=== PATIENT | female | born 1945 | race Caucasian/White ===

== ENCOUNTER 2018-03-30 14:00 | Emergency (ER) | payer OTHER ==
[~2018-03-30] VITALS: Ht 162.6 cm; Wt 79.8 kg
[~2018-03-30 14:00] MED LIST: ALLEGRA ALLERGY60 MG PO; ALLO300 PO; BIOTIN2500 MCG PO; BUME2 PO; CALCAVITD PO; CEPH250A PO; CHOL10002 PO; CYCL10 PO; DOCSEN PO; FURO40 PO; GABA100 PO; HYDACE5 PO; HYDCOR1TC TOP; Inderal40 MG; K-Dur 20 meq T20 MEQ PO; LEVO750 PO; LEVSOD75 PO; MAGOXI400 PO; META800 PO; METO2.5 PO; NYST100TC TOP; Norco 5-325 Ta1 EACH PO; Norco 7.5-3251 EACH PO; OMEP20ER PO; OXYACE7.5T PO; POTCHL10ER PO; POTCHL20ER PO; POTPHO PO; PRAM.125 PO; PRIM50 PO; SIMV10 PO; SPIR50 PO; Simvastatin20 MG PO; Spironolactone50 MG PO; TRAM50 PO; Valium5 MG PO; WARF5 PO; XGEVA120 MG/1.7 SQ
[2018-03-30] MEDS ORDERED: ELIQUIS5 MG PO (15:49)
== END 2018-03-30 15:54 | disposition home or self-care (01) ==
LOC: ER 14:00
DX: I82.431 Acute embolism and thrombosis of right popliteal vein (principal); E03.9 Hypothyroidism, unspecified; E78.00 Pure hypercholesterolemia, unspecified; F17.200 Nicotine dependence, unspecified, uncomplicated; Z79.899 Other long term (current) drug therapy
CPT/HCPCS: 93971; 99284

== ENCOUNTER → 2018-10-01 | Outpatient (CLI) | payer OTHER ==
[~2018-10-01] MED LIST changes: +ELIQUIS5 MG PO
== END | disposition home or self-care (01) ==
LOC: LAB EV 19:05 → LAB SHORT 19:05
DX: N39.0 Urinary tract infection, site not specified (principal)
CPT/HCPCS: 87077; 87086; 87186

== ENCOUNTER 2019-02-04 17:32 | Inpatient (IN) | payer OTHER ==
[~2019-02-04] VITALS: Ht 162.6 cm; Wt 89.2 kg
[~2019-02-04 17:32] MED LIST changes: -BIOTIN2500 MCG PO; -BUME2 PO; -CHOL10002 PO; -DOCSEN PO; -NYST100TC TOP; -OMEP20ER PO; -PRIM50 PO; -SPIR50 PO
[2019-02-04 18:14] LABS: BASOPHILS ABSOLUTE AUTO 0.07 K/mm3 (0.00-0.23); BASOPHILS PERCENT AUTO 1 % (0-2); EOSINOPHILS ABSOLUTE AUTO 0.01 K/mm3 (0.00-0.68); EOSINOPHILS PERCENT AUTO 0 % (0-6); Hematocrit 36.3 % (33.0-51.0); IMMATURE GRAN ABSOLUTE AUTO 0.01 K/mm3 (0.00-0.10); IMMATURE GRAN PERCENT AUTO 0 % (0-1); LYMPHOCYTES ABSOLUTE AUTO 1.06 K/mm3 (0.84-5.20); LYMPHOCYTES PERCENT AUTO 18 % (21-46); MONOCYTES ABSOLUTE AUTO 0.75 K/mm3 (0.16-1.47); MONOCYTES PERCENT AUTO 13 % (4-13); Mean Corpuscular HGB 27.7 pg (26.0-34.0); Mean Corpuscular HGB Conc 30.3 g/dL (31.5-36.5); Mean Corpuscular Volume 91 fL (80-100); Mean Platelet Volume 9.4 fL (9.1-12.4); NEUTROPHILS ABSOLUTE AUTO 4.09 K/mm3 (1.96-9.15); NEUTROPHILS PERCENT AUTO 68 % (41-73); Platelet Count 231 K/mm3 (150-400); RDW Coefficient Variation 17.1 % (11.7-14.2); RDW Standard Deviation 57.4 fL (35.1-46.3); Red Blood Cell Count 3.97 M/mm3 (3.80-5.20); White Blood Cell Count 5.99 K/mm3 (4.00-11.30)
[2019-02-04 18:37] LABS: Albumin, Blood 2.7 g/dL (3.4-5.0); Albumin/Globulin Ratio 0.7 (0.8-1.8); Bilirubin, Total 0.5 mg/dL (0.1-1.0); Bun/Creatinine Ratio 24.1 (12.0-20.0); Calcium, Blood 9.3 mg/dL (8.5-10.1); Creatinine, Blood 1.16 mg/dL (0.40-1.00); Globulin, Blood 3.7 g/dL (2.2-4.0); Potassium, Blood 4.6 mmol/L (3.5-5.5); Total Protein, Blood 6.4 g/dL (6.4-8.2); Troponin I 0.053 ng/mL (0.000-0.040)
[2019-02-04] MEDS ORDERED: Alendronate Sod10 MG PO (20:02)
[2019-02-04] MEDS ORDERED: ALLEGRA ALLERGY60 MG PO (20:02)
[2019-02-04] MEDS ORDERED: ALLO300 PO (20:03)
[2019-02-04] MEDS ORDERED: BUME2 PO (20:04)
[2019-02-04] MEDS ORDERED: BIOTIN2500 MCG PO (20:04)
[2019-02-04] MEDS ORDERED: GABA100 PO ×2 (20:05→20:06)
[2019-02-04] MEDS ORDERED: Docusate Sodiu1 EACH PO (20:09)
[2019-02-04] MEDS ORDERED: LEVSOD75 PO (20:10)
[2019-02-04] MEDS ORDERED: OMEPRAZOLE MAGN20 MG PO (20:12)
[2019-02-04] MEDS ORDERED: Nystatin15 GM TOP (20:12)
[2019-02-04] MEDS ORDERED: PRIM50 PO ×2 (20:13)
[2019-02-04] MEDS ORDERED: Zocor20 MG PO (20:15)
[2019-02-04] MEDS ORDERED: SPIR50 PO (20:15)
[2019-02-04] MEDS ORDERED: CHOL10002 PO (20:16)
[2019-02-04] MEDS ORDERED: LEG CRAMP RELIEF PO (20:21)
[2019-02-04] MEDS ORDERED: HYDROCORTISONE TOP (20:23)
[2019-02-05 06:18] LABS: Albumin, Blood 2.6 g/dL (3.4-5.0); Albumin/Globulin Ratio 0.8 (0.8-1.8); Bilirubin, Total 0.4 mg/dL (0.1-1.0); Bun/Creatinine Ratio 23.1 (12.0-20.0); Calcium, Blood 8.9 mg/dL (8.5-10.1); Creatinine, Blood 1.17 mg/dL (0.40-1.00); Globulin, Blood 3.4 g/dL (2.2-4.0); Potassium, Blood 4.1 mmol/L (3.5-5.5)
--- NOTE | 2019-02-05 10:48 | NUR ---
Echocardiogram completed.
--- NOTE | 2019-02-05 18:54 | NUR ---
pt gave nursing secretary consent on 02/05/19 to care for her on 02/06/19 from [id number]
--- NOTE | 2019-02-05 19:59 | NUR ---
ADMIT NOTE RECEIVED REPORT FROM ALPHONSO MCHUGH RN IN ED. PT TO ROOM AT 1350 VIA 3LM. PT ORIENTED TO ROOM AND CALL LIGHT SYSTEM. PT EDUCATED ON FALL RISK AND CALLING FOR ASSISTANCE. PT REPORTS FEELING SOB YESTERDAY. PT A&OX4. CALM AND COOPERATIVE WITH CARE. PT RESTING IN BED, 1 PERSON ASSIST TO BSC. SOB ON EXERTION, 4L O2 VIA NC, >90%. PT ON RA AT BASELINE. PT DENIES PAIN AND N/V. PT RECEIVING IV LASIX. VSS. NO OTHER ACUTE CHANGES NOTED DURING SHIFT. REPORT GIVEN TO ONCOMING RN.
--- NOTE | 2019-02-06 02:26 | NUR ---
AFIB WHILE THIS RN WAS AT LUNCH, PT CONVERTED FROM NSR IN THE 60'S TO AFIB RATE BETWEEN 115-120 AT 0147. PT HAS REMAINED IN AFIB, SHE IS ASYMPTOMATIC. RATE NOT ABOVE 120. RESTING IN BED. DR. EGAN CALLED AND NOTIFIED. METOPROLOL ORDERED FOR A RATE GREATER THAN 130. NO ADDITIONAL ORDERS. ANY OTHER INTERVENTIONS NEEDED TO BE ADDRESSED BY DAYSHIFT ATTENDING PER HIS DISCUSSION WITH ME. WILL NOTIFY DAYSHIFT FOR FOLLOW UP. MONITORING.
--- NOTE | 2019-02-06 04:13 | NUR ---
SHIFT SUMMARY UNEVENTFUL NIGHT, UNTIL ABOUT 0200 WHEN PT CONVERTED FROM NSR TO AFIB, RATE BETWEEN 115-120. DR. EGAN WAS CALLED AND NOTIFIED. METEPROLOL ORDERED FOR A HEART RATE GREATER THAN 130. NO ADDITIONAL ORDERS. SEE PRIOR NURSING NOTE. PT HAS REMAINED ASYMPTOMATIC. PT REMAINS IN AFIB AT THIS TIME 0415 RATE 115-120, PER LOGISTICAL ENGINEER. SHE HAS NOT GONE PAST 130. PT HAS DENIED PAIN T/O SHIFT. SHE HAS GOTTEN UP TO THE BATHROOM WITH MIMIMAL ASSISTANCE USING THE FWW. A/OX4. NO N/V. SKIN WARM AND DRY. FAMILY AT BEDSIDE AT THE BEGINNING OF SHIFT AND WERE UPDATED ON CURRENT POC. PT DAUGHTER WOULD LIKE TO CONTACTED TOMORROW IF SHE DOES DC HOME. NO OTHER CHANGES TO REPORT. WILL CONTINUE TO MONITOR AND REPORT TO ONCOMING RN.
[2019-02-06 05:35] LABS: BASOPHILS ABSOLUTE AUTO 0.04 K/mm3 (0.00-0.23); BASOPHILS PERCENT AUTO 1 % (0-2); EOSINOPHILS ABSOLUTE AUTO 0.13 K/mm3 (0.00-0.68); EOSINOPHILS PERCENT AUTO 3 % (0-6); Hematocrit 32.2 % (33.0-51.0); Hemoglobin 9.9 g/dL (11.5-16.0); IMMATURE GRAN ABSOLUTE AUTO 0.03 K/mm3 (0.00-0.10); IMMATURE GRAN PERCENT AUTO 1 % (0-1); LYMPHOCYTES PERCENT AUTO 25 % (21-46); MONOCYTES ABSOLUTE AUTO 0.75 K/mm3 (0.16-1.47); MONOCYTES PERCENT AUTO 14 % (4-13); Mean Corpuscular HGB 27.2 pg (26.0-34.0); Mean Corpuscular HGB Conc 30.7 g/dL (31.5-36.5); Mean Corpuscular Volume 89 fL (80-100); Mean Platelet Volume 10.1 fL (9.1-12.4); NEUTROPHILS ABSOLUTE AUTO 3.01 K/mm3 (1.96-9.15); NEUTROPHILS PERCENT AUTO 57 % (41-73); Platelet Count 195 K/mm3 (150-400); RDW Standard Deviation 54.9 fL (35.1-46.3); Red Blood Cell Count 3.64 M/mm3 (3.80-5.20); White Blood Cell Count 5.26 K/mm3 (4.00-11.30)
[2019-02-06 05:55] LABS: Albumin, Blood 2.4 g/dL (3.4-5.0); Anion Gap 6 mmol/L (6-16); Blood Urea Nitrogen 27 mg/dL (8-24); Bun/Creatinine Ratio 27.1 (12.0-20.0); CO2, Blood 34 mmol/L (21-32); Calcium, Blood 7.9 mg/dL (8.5-10.1); Chloride, Blood 97 mmol/L (98-108); Glomerular Filtration Rate 58 (60-); Glucose, Blood 74 mg/dL (70-99); Phosphorus, Blood 2.9 mg/dL (2.5-4.9); Potassium, Blood 3.2 mmol/L (3.5-5.5); Sodium, Blood 137 mmol/L (136-145)
--- NOTE | 2019-02-06 19:08 | NUR ---
SHIFT SUMMARY OOB TO CHAIR FOR MEALS. AMBULATED IN HALLWAY. PLEASANT. DAUGHTERS TO VISIT THROUGHOUT DAY. DESATS TO MID 80'S ON RA WITH AMBULATION. 4L NC. AFIB LAST SHIFT CONVERTED TO NSR WITH PAC'S AFTER IV METOPROLOL. SEE EKG'S ON CHART.
[2019-02-07 05:42] LABS: BASOPHILS ABSOLUTE AUTO 0.04 K/mm3 (0.00-0.23); BASOPHILS PERCENT AUTO 1 % (0-2); EOSINOPHILS ABSOLUTE AUTO 0.16 K/mm3 (0.00-0.68); EOSINOPHILS PERCENT AUTO 3 % (0-6); Hematocrit 34.9 % (33.0-51.0); Hemoglobin 10.3 g/dL (11.5-16.0); IMMATURE GRAN ABSOLUTE AUTO 0.01 K/mm3 (0.00-0.10); IMMATURE GRAN PERCENT AUTO 0 % (0-1); LYMPHOCYTES PERCENT AUTO 28 % (21-46); MONOCYTES ABSOLUTE AUTO 0.77 K/mm3 (0.16-1.47); MONOCYTES PERCENT AUTO 14 % (4-13); Mean Corpuscular HGB 27.4 pg (26.0-34.0); Mean Corpuscular HGB Conc 29.5 g/dL (31.5-36.5); Mean Platelet Volume 9.9 fL (9.1-12.4); NEUTROPHILS ABSOLUTE AUTO 3.12 K/mm3 (1.96-9.15); NEUTROPHILS PERCENT AUTO 55 % (41-73); Platelet Count 199 K/mm3 (150-400); RDW Coefficient Variation 17.2 % (11.7-14.2); RDW Standard Deviation 58.1 fL (35.1-46.3); Red Blood Cell Count 3.76 M/mm3 (3.80-5.20)
[2019-02-07 05:49] LABS: Mean Corpuscular Volume 93 fL (80-100)
[2019-02-07 05:56] LABS: Albumin, Blood 2.7 g/dL (3.4-5.0); Anion Gap 5 mmol/L (6-16); Blood Urea Nitrogen 22 mg/dL (8-24); Bun/Creatinine Ratio 24.3 (12.0-20.0); CO2, Blood 36 mmol/L (21-32); Calcium, Blood 8.1 mg/dL (8.5-10.1); Chloride, Blood 99 mmol/L (98-108); Glomerular Filtration Rate >60 (60-); Glucose, Blood 78 mg/dL (70-99); Phosphorus, Blood 2.6 mg/dL (2.5-4.9); Potassium, Blood 4.1 mmol/L (3.5-5.5); Sodium, Blood 140 mmol/L (136-145)
--- NOTE | 2019-02-07 19:45 | NUR ---
SHIFT SUMMARY- PT WAS AMBULATED IN THE [place] BY PT AND O2 REQUIREMENTS TO MAINTAIN SATS WENT UP TO 6L VIA NC. PT HAD A CHEST CT DONE THAT STILL SHOWS PNEUMONIA AND FLIUD. PT UNABLE TO RECIEVE LASIX D/T LOW BP. DR ESCAMILLA. PT ALERT AND ORIENTED, USES THE CALL LIGHT APPROPRIATELY. PT WALKED ONE LAP IN THE UNIT THIS EVENING WITH STAFF AND O2 SET TO 6L NC. PT SEEMS BRIGHTER THIS EVENING, NO C/O PAIN, DAUGHTER IS AT THE BEDSIDE. CALL LIGHT IN REACH BEDSIDE REPORT COMPLETE.
--- NOTE | 2019-02-08 04:15 | NUR ---
pt says she is feeling better this shift color better less wheeze but continues to be unable to have the diuretics rx due to low bp. current bp 110/71 p 120 to 120 and converted back to afib around 0330 from nsr with pac. she says she is asymptomatic currently. continues to need 4 l nc at rest and 6 l nc with ambulation to keep sats greater than 90%. Tolerating diet and ambulates to bathroom frequently with 1 standby assist fww. continues to have 2 plus edema bilat le and jvd from chf. denies pain or acute distress. PT tell me average bp is 116/70s and denies feeling lighheaded with activity. Paged DR Rivera [phone] about converting back to afib sustained rate 120w.
[2019-02-08] MEDS ORDERED: LEVSOD75 PO (04:32)
--- NOTE | 2019-02-08 04:38 | NUR ---
DR RILEY UPDATED ON AFIB RETURN AND HE ORDERES IV LOPRESSER 5 MG X 2 2ND DOSE 30 MINS AFTER FIRST DOSE. SYNTHROID FROM MED REC RESTARTED.
--- NOTE | 2019-02-08 06:42 | NUR ---
pt converted back into nsr after 5 mg lopressor iv x 1 she had heart rate of 50 to 70s. MD informed second dose of lopressor not given after she converted back to nsr. HE OK not giving. PT says feeling well.
--- NOTE | 2019-02-08 19:54 | NUR ---
SHIFT SUMMARY- PT HAD A SHORT RUN OF V TACH AT THE TIME SHE WAS RECIEVING IV SOLUMEDROLAT THE TIME, WAS INFORMED. THIS DID NOT HAPPEN AT THE TIME THE SECOND DOSE WAS GIVEN PER MOTORCYLES FINAL INSPECTOR ALEC. PT HAS HAD NO C/O PAIN T/O THE SHIFT SHE HAD A SHOWER. PT ON 3.5L NC. PT ALERT, ORIENTED, 1PA TO THE BATHROOM CALL LIGHT IN REACH, FAMILY AT THE BEDSIDE.
--- NOTE | 2019-02-09 04:32 | NUR ---
SHIFT SUMMARY: PT IS ALERT AND ORIENTED. PT IS CALM AND COOPERATIVE WITH CARE. PT CALLS APPROPRIATELY. PT IS A STANDBY ASSIST TO THE BATHROOM WITH THE FWW. FAMILY IN THE ROOM VISITING AT THE START OF SHIFT. PT REPORTS SOB UPON EXERTION, 3 L O2 KEEPING SATS > 90%. PT DENIES PAIN, NAUSEA, AND VOMITING. PT SLEPT VERY LITTLE OVERNIGHT. NO ACUTE CHANGES OR COMPLICATIONS THIS SHIFT. WILL REPORT TO DAY NURSE.
--- NOTE | 2019-02-09 18:22 | NUR ---
PT IS ALERT AND ORIENTED AND COOPERATIVE WITH CARE. SHE MAKES HER NEEDS KNOWN. SHE IS A ONE PERSON ASSIST TO THE BATHROOM WITH FWW. SHE IS UP TO THE CHAIR FOR MEALS. SHE IS ON 4L O2 VIA NC. NO SOB UPON EXERTION TODAY. 22G IN LEFT WRIST. PET FEEDER STATES NSR AT 69 BPM. SMALL LOOSE STOOL TODAY. NO ACUTE CHANGES, WILL CONTINUE TO MONITOR.
--- NOTE | 2019-02-09 22:18 | NUR ---
ASSUMED CARE OF PT AT 2119. PT W/O S/S DISTRESS AT THIS TIME.
[2019-02-10 05:25] LABS: Hematocrit 36.2 % (33.0-51.0); Hemoglobin 10.7 g/dL (11.5-16.0); Mean Corpuscular HGB 27.4 pg (26.0-34.0); Mean Corpuscular HGB Conc 29.6 g/dL (31.5-36.5); Mean Corpuscular Volume 93 fL (80-100); Mean Platelet Volume 9.5 fL (9.1-12.4); Platelet Count 216 K/mm3 (150-400); RDW Coefficient Variation 17.2 % (11.7-14.2); RDW Standard Deviation 58.2 fL (35.1-46.3); Red Blood Cell Count 3.91 M/mm3 (3.80-5.20); White Blood Cell Count 8.27 K/mm3 (4.00-11.30)
[2019-02-10 05:47] LABS: Anion Gap 7 mmol/L (6-16); Blood Urea Nitrogen 18 mg/dL (8-24); Bun/Creatinine Ratio 25.9 (12.0-20.0); CO2, Blood 32 mmol/L (21-32); Calcium, Blood 9.1 mg/dL (8.5-10.1); Chloride, Blood 99 mmol/L (98-108); Glomerular Filtration Rate >60 (60-); Glucose, Blood 113 mg/dL (70-99); Potassium, Blood 4.5 mmol/L (3.5-5.5); Sodium, Blood 138 mmol/L (136-145)
--- NOTE | 2019-02-10 06:48 | NUR ---
SUMMARY: A/OX4, COOPERATIVE W/CARE AND SPECIFIES NEEDS. SHE'S SBA W/FWW IN ROOM AND AMBULATED IN HALLS THIS SHIFT. SHE IS CURRENTLY ON 5L O2 W/SPO2 WNL BUT UNABLE TO TITRATE. OCCASIONAL DRY HACKING COUGH OBSERVED. SHE REMAINS IN NSR W/PAC'S AT 60-70'S BPM PER PCU JDE DEVELOPER. VSS/AFEBRILE, NO ACUTE CHANGES. WILL MONITOR AND REPORT TO DAY RN.
--- NOTE | 2019-02-10 09:00 | NUR ---
ASSUMED CARE PT ALERT AND ORIENTED. PT RESTING AT THIS TIME WITH OBVIOUS CHEST RISE AND FALL. VITAL SIGNS STABLE. PT DENIES ANY PAIN AT THIS TIME. PT TEARFUL ABOUT HOME SITUATION. PASSENGER BRAKEMAN HAS BEEN CONSULTED. ATTENDS DRY AT THIS TIME. PT ABLE TO REPOSITION SELF IN BED AND USE BED BASS NEEDED. WILL CONTINUE TO MONITOR. CALL LIGHT IN REACH.
--- NOTE | 2019-02-10 18:41 | NUR ---
SHIFT SUMMARY PT ALERT AND ORIENTED. VS STABLE. TELEMETRY DISCONTINUED THIS SHIFT. PT ABLE TO ABMULATE TO BATHROOM NEEDED WITH FWW AND SBA. ATTEMPTED TO TITRATE OXYGEN DOWN THIS SHIFT. PT TURNED DOWN TO 3L AND AFTER AND HOUR SATURATION WAS DOWN TO 85%. PT CURRENTLY REQUIRING 4L NC. PT DENIES ANY PAIN. FAMILY AT BEDSIDE THROUGHOUT SHIFT. PT EDUCATED ABOUT SMOKING CESSATION. NO OTHER CHANGES SINCE INITIAL ASSESSMENT. WILL CONTINUE TO MONITOR AND REPORT TO ONCOMING RN. CALL LIGHT IN REACH.
--- NOTE | 2019-02-11 04:02 | NUR ---
73 Y/O FEMALE RESTED COMFORTABLY ALL EVENING IN BED. PT CALLED THIS NURSE TO ROOM AND VIUCED SHE BROKE LEFT HAND, #3 DIGIT, DISTAL LONG FINGER NAIL TIP OFF (SITE NON BLEEDING WITH THIS NURSE APPLYING BANDAID TO SITE). PT DENIES PAIN OR NAUSEA. PT WEARING o2 AT 4L/M PER NASAL CANNULA. PTS BED IN LOW POSITION, CALL LIGHT AT SIDE.
[2019-02-11 05:59] LABS: Anion Gap 7 mmol/L (6-16); Blood Urea Nitrogen 22 mg/dL (8-24); Bun/Creatinine Ratio 27.5 (12.0-20.0); CO2, Blood 33 mmol/L (21-32); Calcium, Blood 8.9 mg/dL (8.5-10.1); Chloride, Blood 103 mmol/L (98-108); Glomerular Filtration Rate >60 (60-); Glucose, Blood 118 mg/dL (70-99); Potassium, Blood 4.5 mmol/L (3.5-5.5); Sodium, Blood 143 mmol/L (136-145)
--- NOTE | 2019-02-12 00:17 | NUR ---
02/12/19 0015 PT AWAKE AND EATING ICE CHIPS. DENIES ANY S/S OR DISCOMFORT. STATES SHE JUST RECEIVED A "BREATHING TREATMENT". PLANS TO SLEEP SOON.
--- NOTE | 2019-02-12 07:40 | NUR ---
02/12/19 0620 AWAKE AND WATCHING TV. DENIES ANY S/S OR DISCOMFORT. O2 REMAINS AT 4LPM VIA N/C. VITALS STABLE. UNEVENTFUL NIGHT.
[2019-02-12] MEDS ORDERED: ALBU2.5V5 NEB (13:33)
[2019-02-12] MEDS ORDERED: Augmentin 875-1 EACH PO (13:35)
[2019-02-12] MEDS ORDERED: ALBU3IS INH (13:35)
[2019-02-12] MEDS ORDERED: XARELTO20 MG PO (13:35)
[2019-02-12] MEDS ORDERED: FLUT1DIS5 INH (13:36)
[2019-02-12] MEDS ORDERED: PRED10 (13:38)
--- NOTE | 2019-02-12 16:09 | NUR ---
DISCHARGE DISCHARGE INSTRUCTIONS, MEDICATION LIST AND FOLLOW UP APPOINTMENTS REVIEWED WITH PT. QUESTIONS/CONCERNS ANSWERED. PT VERBALLY INDICATED UNDERSTANDING OF ALL INSTRUCTIONS RECEIVED. NEW SCRIPS FAXED TO [facility] PER PT PREFERENCE. PT WAITING FOR RIDE AT THIS TIME.
== END 2019-02-12 17:13 | disposition home or self-care (01) | DRG 291 ==
LOC: ER 17:32 → ERHOLD 20:00 → MEDS 02-05 13:53
PROVIDERS: Emergency Medicine; Hospitalist; Internal Medicine; ADMIT Hospitalist
DX: I13.0 Hypertensive heart and chronic kidney disease with heart failure and stage 1 through stage 4 chronic kidney disease, or unspecified chronic kidney disease (principal); I50.33 Acute on chronic diastolic (congestive) heart failure; J18.9 Pneumonia, unspecified organism; J44.1 Chronic obstructive pulmonary disease with (acute) exacerbation; N18.3 Chronic kidney disease, stage 3 (moderate); F17.210 Nicotine dependence, cigarettes, uncomplicated; I48.2 Chronic atrial fibrillation; Z79.01 Long term (current) use of anticoagulants; E87.6 Hypokalemia; E03.9 Hypothyroidism, unspecified; M10.9 Gout, unspecified; D63.1 Anemia in chronic kidney disease; Z86.718 Personal history of other venous thrombosis and embolism
CPT/HCPCS: 36415; 71046; 71250; 80048; 80053; 80069; 83735; 83880; 84145; 84484; 85025; 85027; 93005; 93010; 93306; 93970; 94640; 94760; 94761; 96374; 96375; 97110; 97116; 97162; 97165; 97530; 97535; 99285-25; 99406; J0456; J0696; J1650; J1940; J2920; J2930; J7050

== ENCOUNTER 2019-04-17 20:58 | Inpatient (IN) | payer OTHER ==
[~2019-04-17] VITALS: Ht 160 cm; Wt 85.6 kg
[~2019-04-17 20:58] MED LIST changes: +ALBU2.5V5 NEB; +ALBU3IS INH; +Alendronate Sod10 MG PO; +Augmentin 875-1 EACH PO; +BIOTIN2500 MCG PO; +BUME2 PO; +CHOL10002 PO; +Docusate Sodiu1 EACH PO; +FLUT1DIS5 INH; +HYDROCORTISONE TOP; +LEG CRAMP RELIEF PO; +Nystatin15 GM TOP; +OMEPRAZOLE MAGN20 MG PO; +PRED10; +PRIM50 PO; +SPIR50 PO; +XARELTO20 MG PO; +Zocor20 MG PO
[2019-04-17 21:22] LABS: BASOPHILS ABSOLUTE AUTO 0.04 K/mm3 (0.00-0.23); BASOPHILS PERCENT AUTO 1 % (0-2); EOSINOPHILS ABSOLUTE AUTO 0.09 K/mm3 (0.00-0.68); EOSINOPHILS PERCENT AUTO 2 % (0-6); Hematocrit 36.6 % (33.0-51.0); Hemoglobin 10.9 g/dL (11.5-16.0); IMMATURE GRAN ABSOLUTE AUTO 0.02 K/mm3 (0.00-0.10); IMMATURE GRAN PERCENT AUTO 0 % (0-1); LYMPHOCYTES ABSOLUTE AUTO 1.02 K/mm3 (0.84-5.20); LYMPHOCYTES PERCENT AUTO 20 % (21-46); MONOCYTES ABSOLUTE AUTO 0.54 K/mm3 (0.16-1.47); MONOCYTES PERCENT AUTO 11 % (4-13); Mean Corpuscular HGB 25.9 pg (26.0-34.0); Mean Corpuscular HGB Conc 29.8 g/dL (31.5-36.5); Mean Corpuscular Volume 87 fL (80-100); Mean Platelet Volume 9.1 fL (9.1-12.4); NEUTROPHILS ABSOLUTE AUTO 3.29 K/mm3 (1.96-9.15); NEUTROPHILS PERCENT AUTO 66 % (41-73); Platelet Count 221 K/mm3 (150-400); RDW Coefficient Variation 20.3 % (11.7-14.2); RDW Standard Deviation 64.3 fL (35.1-46.3); Red Blood Cell Count 4.21 M/mm3 (3.80-5.20)
[2019-04-17 21:37] LABS: Albumin, Blood 2.9 g/dL (3.4-5.0); Albumin/Globulin Ratio 0.9 (0.8-1.8); Bilirubin, Total 0.3 mg/dL (0.1-1.0); Bun/Creatinine Ratio 15.4 (12.0-20.0); Calcium, Blood 8.6 mg/dL (8.5-10.1); Creatinine, Blood 1.17 mg/dL (0.40-1.00); Globulin, Blood 3.4 g/dL (2.2-4.0); Potassium, Blood 3.5 mmol/L (3.5-5.5); Total Protein, Blood 6.3 g/dL (6.4-8.2); Troponin I 0.018 ng/mL (0.000-0.040)
[2019-04-17 23:02] LABS: PCO2 Arterial 57.2 mmHg (35-45); PO2 Arterial 59.2 mmHg (80-100); pH Blood Arterial 7.44 (7.35-7.45)
--- NOTE | 2019-04-18 00:40 | NUR ---
ASSUMING CARE OF PT AT THIS TIME. PT REPORT RECEIVED VIA TELEPHONE WITH OFFGOING NURSE, RICK HOLLIDAY. WAITING FOR PT TRANSFER FROM ED TO ICU AT THIS TIME.
--- NOTE | 2019-04-18 00:45 | NUR ---
PT TRANSFERRED FROM ED TO ICU AT THIS TIME.
--- NOTE | 2019-04-18 00:50 | NUR ---
ASSESSMENT PT CALM, QUIET, COOPERATIVE, RESPONDS TO VERBAL STIMULI, SPONT OPENS EYES, A&O X4, OCC SLOW TO RESPOND. SENSATION INTACT. DENIES N/T. PT GRIFFITHS. PT DENIES WEAKNESS FROM BASELINE. NO WEAKNESS NOTED. PT REPOSITIONS SELF IN BED. PT USES WALKER AT HOME. 1P SBA WITH AMBULATION. PT DENIES PAIN/DISCOMFORT. NO S/SX OF PAIN/DISCOMFORT. LUNGS CLEAR, LOWER LOBES CRACKLES AND DIMINISHED. SHALLOW BREATHING. PT ON 4L NC. OXY SAT >90%. RR 20'S. DYSPNEA WITH EXERTION. DENIES SOB AT REST. AFEBRILE. ST. HR 120'S. CARDIZEM DRIP 5 MG/HR. BP STABLE - SEE VS FS. STRONG PULSES. WARM, PINK SKIN BUE'S. HOT, RED BLE'S. EDEMA BLE'S. ACTIVE BT X4 QUADRANTS. ABD SOFT, NONTENDER, MILD DIST (PT STATES ABD DIST IS NORMAL). NO N/V. NO BM. PT TOLERATING PO FLUIDS. NO UO. WILL ASSIST WITH BATHROOM PRIVELEGES. PT UNABLE TO PROVIDE MEDICATION LIST. PT'S DAUGHTER PLANNING TO BRING MEDICATION LIST TO ICU TOMORROW AM.
[2019-04-18] MEDS ORDERED: GABA100 (01:16)
[2019-04-18] MEDS ORDERED: Zocor20 MG PO (01:16)
[2019-04-18] MEDS ORDERED: Primidone50 MG (01:17)
--- NOTE | 2019-04-18 02:00 | NUR ---
DR. EGAN CALLED DR. EGAN AT THIS TIME. INFORMED DR. EGAN OF PT'S WISHES TO BE DNR STATUS. DR. EGAN PLANNING TO CHANGE CODE STATUS TO DNR STATUS. ALSO INFORMED DR. EGAN OF PENDING HOME MEDICATION LIST. DR. EGAN PLANNING TO ORDER XARELTO AT THIS TIME. WAITING FOR DR. EGAN TO INSERT ORDERS AT THIS TIME.
--- NOTE | 2019-04-18 04:13 | NUR ---
DR. JIGNESH EGAN IN ICU AT THIS TIME. DR. EGAN INSTRUCTED TO D/C PRIMIDONE ORDER UNTIL PT'S DAUGHTER BRINGS IN HOME MEDICATION LIST.
--- NOTE | 2019-04-18 04:28 | NUR ---
SHIFT ASSESSMENT PT TRANSFERRED FROM ED TO ICU THIS SHIFT. NO ACUTE CHANGES NOTED WHILE IN ICU. PT CALM, QUIET, COOPERATIVE, RESPONDS TO VERBAL STIMULI, SPONT OPENS EYES, A&O X4, OCC SLOW TO RESPOND. PT SLEEPING AT THIS TIME. SENSATION INTACT. DENIES N/T. PT GRIFFITHS. PT DENIES WEAKNESS FROM BASELINE. NO WEAKNESS NOTED. PT REPOSITIONS SELF IN BED. 1P SBA AND WALKER WITH AMBULATION. PT DENIES PAIN/DISCFOMORT. NO S/SX OF PAIN/DISCOMFORT. UPPER LOBES CLEAR WITH OCC EXP WHEEZING, LOWER LOBES CRACKLES AND DIMINISHED. BREATHING TX PER RT. SHALLOW BREATHING. PT ON 4L NC WITH HUMIDIFIED AIR. OXY SAT >90%. RR 14 TO 20'S. DYSPENA WITH EXERTION. DENIES SOB AT REST. AFEBRILE. SR TO ST. HR 90'S TO 120'S. BP STABLE - SEE VS FS. STRONG PULSES. WARM, PINK SKIN BUE'S. HOT, RED BLE'S. EDEMA BLE'S. CARDIZEM DRIP AT 15 MG/HR. ACTIVE BT X4 QUADRANTS. ABD SOFT, NONTENDER, MILD DIST (PT STATES ABD DIST IS NORMAL). NO N/V. NO BM. PT TOLERATES PO FLUIDS. ASSISTED PT TO BEDSIDE COMMODE. CLEAR, YELLOW URINE NOTED. PIV X1. WILL CONT TO MONITOR PT AND WILL PROVIDE BEDSIDE REPORT TO ONCOMING NURSE THIS AM.
[2019-04-18 05:31] LABS: Albumin, Blood 2.8 g/dL (3.4-5.0); Albumin/Globulin Ratio 0.8 (0.8-1.8); Bilirubin, Total 0.5 mg/dL (0.1-1.0); Bun/Creatinine Ratio 17.8 (12.0-20.0); Calcium, Blood 8.4 mg/dL (8.5-10.1); Creatinine, Blood 1.01 mg/dL (0.40-1.00); Globulin, Blood 3.4 g/dL (2.2-4.0); Potassium, Blood 3.9 mmol/L (3.5-5.5); Total Protein, Blood 6.2 g/dL (6.4-8.2)
--- NOTE | 2019-04-18 07:15 | NUR ---
START OF SHIFT NOTE: RECEIVED REPORT FROM MG MURILLO, ASSUMED CARE, PATIENT IS AWAKE AND ALERT AND ORIENTED, VISITOR AT BEDSIDE BROUGHT IN HOME MEDICATIONS AND POLST, PATIENT IS PLEASANT AND COOPERATIVE, LUNG SOUNDS ARE CLEAR WITH SOME CRACKLES IN UPPER LOBES AND DIMINISHED IN LOWER LOBES, BOWEL TONES ARE PRESENT IN ALL FOUR QUADRANTS, PATIENT IS ABLE TO GET UP TO BSC TO URINATE, SBA ONLY, USES WALKER, ON 4L NC WITH HUMIDIFICATION, PATIENT ALSO USES HOME O2, BILATERAL LE'S ARE RED AND SHOW EDEMA, FROM ANKLE DOWNWARDS SKIN APPEARS TO BE RED FROM CELLULITIS, EATING BREAKFAST, CALL LIGHT IN REACH, WILL CONTINUE TO MONITOR.
[2019-04-18] MEDS ORDERED: Calci-Mix500 MG PO (07:37)
[2019-04-18] MEDS ORDERED: Vitamin D2000 UNIT PO (07:42)
[2019-04-18] MEDS ORDERED: BIOTIN1 MG PO (07:43)
[2019-04-18] MEDS ORDERED: LEG CRAMPS PO (07:50)
[2019-04-18] MEDS ORDERED: SALM50IP INH (07:51)
--- NOTE | 2019-04-18 17:42 | NUR ---
SHIFT SUMMARY NOTE: PATIENT IS AWAKE, ALERT AND ORIENTED, AT TIMES A BIT SLOW TO RESPOND, HAS CHRONIC SHAKING OVER ENTIRE BODY, NO ADVERSE EVENTS DURING THIS SHIFT, PATIENT CONTINUES IN A-FIB/A-FLUTTER WITH CARDIZEM INFUSING AT 10 MG/HR, HR IN 80'S AND BLOOD PRESSURE IN 90'S, PATIENT IS EATING AND DRINKING WELL, NO FLUID RESTRICTIONS ORDERED, PATIENT REFUSES SCD'S AND STEWART HOSE D/T REDNESS AND EDEMA ON BILATERAL LOWER EXTREMITIES, LUNG SOUNDS ARE DIMINISHED WITH SOME CRACKLES IN LOWER LOBES, PATIENT ON 4. NC WITH MID 90 O2 SATURATION, BOWEL TONES PRESENT, UP TO BSC WITH SBA, VOIDED ONCE DURING THIS SHIFT BUT URINATED 1000 CC'S, RECEIVED LASIX TWICE DURING THIS SHIFT, DENIES PAIN, AFEBRILE, LOWER EXTREMITIES ELEVATED, PATIENT AND FAMILY ALSO RECEIVED EDUCATION ON HEART FAILURE AND THE ASSOCIATED NUTRITION, PRINT OUTS WERE PROVIDED AND DIETARY WAS IN ROOM AND DISCUSSED CHANGES IN EATING HABITS WITH PATIENT, PATIENT IS RESTING COMFORTABLY AT THIS TIME, FOR DETAILS SEE SHIFT ASSESSMENT DOCUMENTATION AND NURSES NOTES, CALL LIGHT IN REACH, WILL CONTINUE TO MONITOR AND GIVE REPORT TO ONCOMING BOWLING BALL MOLDER.
--- NOTE | 2019-04-18 21:00 | NUR ---
ASSUMED CARE AT 2100 PATIENT ALERT AND ORIENTED TO SELF, LOCATION, TIME/DATE AND SITUATION. PATIENT DENIES ANY PAIN AT THIS TIME. PATIENT UP TO BEDSIDE COMMODE WITH MINIMAL ASSIST. PATIENT IN GOOD SPIRITS, MAKING JOKES AND FOLLOWING CONVERSTATION WELL. PATIENT VOID 800 MLS OF CLEAR YELLOW URINE. 2-3 PITTING EDEMA NOTED IN BLE WITH MODERATE REDNESS AND WARMTH NOTED. SED'S APPLIED TO PATIENT UPON HER REQUEST TO 'REDUCE SWELLING' PER PATIENT. PATIENT EDUCATED ON EVENING MEDICATIONS. SWOLLOWED MEDICATIONS WHOLE IN WATER. PATIENT ENJOYS ICE CHIPS - PATIENT EDUCATED ON FLUID OVERLOAD EVEN WITH ICE CHIPS. REDNESS ON COCCYX NOTED - MEPILEX IN PLACE - ZARA CARE PERFORMED. PATIENT REMAINS IN AFIB 90-120 THIS SHIFT (HEART RATE INCREASES WITH MOVEMENT) - CARDIEZEM CONTINUING TO INFUSE AT 10 ML/HR. PATIENT WEARS OXYGEN AT HOME 2-3 LPM - PATIENTS STATES SHE IS TRYING TO WEAN HERSELF OFF - PATIENT CURRENTLY ON 6 LPM NC. PATIENT DENIES ANY NEEDS AT THIS TIME, CALL LIGHT W/I REACH. WILL CONTINUE TO MONITOR - DNR BAND IN PLACE.
--- NOTE | 2019-04-19 00:39 | NUR ---
REPORTED TO TANA HOLLIDAY
--- NOTE | 2019-04-19 00:40 | NUR ---
ASSUMING CARE OF PT AT THIS TIME. PT REPORT RECEIVED AT BEDSIDE WITH OFFGOING NURSE, HARVEY HOLLIDAY. PT LAYING IN BED, AWAKE, WATCHING TELEVISION UPON ENTERING THE ROOM. VS STABLE - SEE VS FS. PT DOES NOT APPEAR TO BE IN DISTRESS AT THIS TIME. WILL REVIEW PLAN OF CARE.
--- NOTE | 2019-04-19 00:45 | NUR ---
ASSESSMENT PT CALM, QUIET, COOPERATIVE, RESPONDS TO VERBAL STIMULI, SPONT OPENS EYES, A&O X4, OCC SLOW TO RESPOND. SENSATION INTACT. DENIES N/T. PT GRIFFITHS. PT DENIES WEAKNESS FROM BASELINE. NO WEAKNESS NOTED. PT REPOSITIONS SELF IN BED. 1P SBA WITH WALKER TO AMBULATE. PT DENIES PAIN/DISCOMFORT. NO S/SX OF PAIN/DISCOMFORT. LUNGS CLEAR, LOWER LOBES CRACKLES AND DIMINISHED. OCC WHEEZING NOTED. SHALLOW BREATHING. PT ON 4L NC WITH HUMIDIFIED AIR. DYSPNEA WITH EXERTION. DENIES SOB AT REST. AFEBRILE. AFLUTTER/AFIB. HR 70'S. CARDIZEM DRIP AT 10 MG/HR. BP STABLE - SEE VS FS. STRONG PULSES. WARM, PINK SKIN BUE'S. HOT, RED BLE'S. EDEMA BLE'S. ACTIVE BT X4 QUADRANTS. ABD SOFT, NONTENDER, MID DIST (PT STATES ABD DIST IS NORMAL). NO N/V. NO BM. PT TOLERATING PO FLUIDS. NO UO AT THIS TIME. WILL ASSIST WITH BATHROOM PRIVELEGES. PIV X1.
--- NOTE | 2019-04-19 02:15 | NUR ---
DR. EGAN CARDIZEM DRIP AT 5 MG/HR. VS STABLE - SEE VS FS. CALLED DR. EGAN AT THIS TIME. INFORMED DR. EGAN OF CARDIZEM DRIP AT 5 MG/HR. DR. EGAN INSTRUCTED TO CONT CARDIZEM DRIP AT 5 MG/HR AND TITRATE DRIP TO EFFECT. DR. EGAN DOES NOT WANT CARIZEM PO STARTED AT THIS TIME.
[2019-04-19 04:23] LABS: Albumin, Blood 2.8 g/dL (3.4-5.0); Anion Gap 3 mmol/L (6-16); Blood Urea Nitrogen 16 mg/dL (8-24); Bun/Creatinine Ratio 15.7 (12.0-20.0); CO2, Blood 37 mmol/L (21-32); Calcium, Blood 8.3 mg/dL (8.5-10.1); Chloride, Blood 99 mmol/L (98-108); Creatinine, Blood 1.02 mg/dL (0.40-1.00); Glomerular Filtration Rate 56 (60-); Glucose, Blood 87 mg/dL (70-99); Potassium, Blood 4.2 mmol/L (3.5-5.5); Sodium, Blood 139 mmol/L (136-145)
[2019-04-19 04:42] LABS: Percent Saturation 6.8 % (15.0-50.0)
--- NOTE | 2019-04-19 04:57 | NUR ---
SHIFT ASSESSMENT NO ACUTE CHANGES NOTED T/O SHIFT. PT CALM, QUIET, COOPERATIVE, RESPONDS TO VERBAL STIMULI, SPONT OPENS EYES, A&O X4, OCC SLOW TO RESPOND. SENSATION INTACT. DENIES N/T. PT GRIFFITHS. PT DENIES WEAKNESS FORM BASELINE. NO WEAKNESS NOTED. PT REPOSITIONS SELF IN BED. 1P SBA WITH WALKER TO AMBULATE. PT DENIES PAIN/DISCMOFRT. NO S/SX OF PAIN/DISCOMFORT. LUNGS CLEAR, LOWER LOBES CRACKLES AND DIMINSIHED. OCC WHEEZING. SHALLOW BREAHTING. PT ON 4L NC WITH HUMIDIFIED AIR. DYSPNEA WITH EXERTION. DENIES SOB AT REST. AFEBRILE. AFLUTTER/AFIB. HR 60'S TO 90'S. CARDIZEM DRIP AT 5 MG/HR. BP STABLE - SEE VS FS. STRONG PULSES. WARM, PINK SKIN BUE'S. HOT, RED BLE'S. EDEMA BLE'S. ACTIVE BT X4 QUADRANTS. ABD SOFT, NONTENDER, MILD DIST (PT STATES ABD DIST IS NORMAL). NO N/V. NO BM. PT TOLERATES PO FLUIDS. ASSISTED WITH BATHROM PRIVELEGES. YELLOW, CLEAR URINE NOTED. PIV X1. WILL CONT TO MONITOR PT AND WILL PROVIDE BEDSIDE REPORT TO ONCOMING NURSE THIS AM.
--- NOTE | 2019-04-19 14:45 | NUR ---
ASSUMED CARE PT. ALERT AND ORIENTED AT THIS TIME. CURRENTLY ON 4LNC, PT. UP TO BEDSIDE COMMODE WITH STAND BY ASSIST. SNACKS PROVIDED. PT. VSS AT THIS TIME. NADN. CALL LIGHT IN REACH.
--- NOTE | 2019-04-19 16:29 | NUR ---
assumed care of pt. seems to be in good humor. no complaints. family in room. call light in reach.
--- NOTE | 2019-04-19 19:00 | NUR ---
NO ACUTE CHANGES THIS SHIFT. PT STATES SHE IS DOING FINE, NO COMPLAINTS, CALL LIGHT IN REACH.
--- NOTE | 2019-04-19 20:30 | NUR ---
CARE ASSUMPTION / PCU TRANSFER PT BROUGHT TO PCU RM 01 FROM ICU BY HOSP BED @ APPROX 2015. PT A&O X4, CALM AND COOPERATIVE. LUNG SOUNDS CLEAR, DIM IN BASES. SPO2 > 92% ON 4L NC. MONITOR SHOWS AFIB, HR 90-130. PT ORIENTED TO NEW ROOM AND DEPARTMENT. WILL CONTINUE TO MONITOR AND PROVIDE CARE.
[2019-04-20 04:20] LABS: Albumin, Blood 2.8 g/dL (3.4-5.0); Anion Gap 2 mmol/L (6-16); Blood Urea Nitrogen 18 mg/dL (8-24); Bun/Creatinine Ratio 18.3 (12.0-20.0); CO2, Blood 38 mmol/L (21-32); Calcium, Blood 8.6 mg/dL (8.5-10.1); Chloride, Blood 97 mmol/L (98-108); Creatinine, Blood 0.98 mg/dL (0.40-1.00); Glomerular Filtration Rate 59 (60-); Glucose, Blood 85 mg/dL (70-99); Phosphorus, Blood 2.8 mg/dL (2.5-4.9); Potassium, Blood 3.7 mmol/L (3.5-5.5); Sodium, Blood 137 mmol/L (136-145)
--- NOTE | 2019-04-20 04:55 | NUR ---
SHIFT SUMMARY PT A&O X4, VSS. PT STATES BP TO RUN LOW AT BASELINE. LUNG SOUNDS CLEAR, DIM IN BASES. SPO2 > 92% ON 4L NC. PT STATES HOME BASELINE TO BE 1-2L NC. MONITOR CONTINUES TO SHOW AFIB, HR 90-130 W/OUT SUSTAINING. PT IN BED, SLEEPING MAJORITY OF NIGHT. WILL CONTINUE TO MONITOR AND PROVIDE CARE UNTIL REPORT OFF TO DAY SHIFT RN.
--- NOTE | 2019-04-20 08:00 | NUR ---
pt laying in bed watching tv, a/ox3, pleasant and cooperative with care, follows commands well, denies pain, sob, states she is doing fine, lungs are clear in upperfields, dim in bases, resp even and unlabored, no cough noted, hrirr, tele in place running afib per monitor, see strip, 2+ edema noted to b/l le, more around ankles, skin a bit red, cap refill <3sec, vs stable, afebrile, iv site is clear and patent, bt x4, abd flat soft nontender, voids without diff, skin has a pink coccyx, other spence c/w/d, rodriguez, bernardo, call light in reach.
--- NOTE | 2019-04-20 13:30 | NUR ---
family in to visit, pt daughter asking about labs, answered her questions. pt states she is doing ok, no further needs. call light in reach.
--- NOTE | 2019-04-20 18:22 | NUR ---
pt doing ok, no acute changes, heart rate continues to be labile but not as bad, no needs or complaints. call light in reach.
--- NOTE | 2019-04-21 04:23 | NUR ---
SHIFT SUMMARY PT A&O X4, VSS. HR CONTINUES TO FLUXUATE, MONITOR SHOWS AFIB, HR 70-130'S. LUNG SOUNDS CLEAR, DIM IN BASES. OXYGEN TITRATED FROM 3L NC TO 2L NC THIS SHIFT W/ SPO2 MAINTAINING > 92%. PT STATES DESIRE TO LEAVE NC @ 2L FOR NOW AND FURTHER TITRATE O2 TO 1L NC IN THE MORNING. PT IN BED W/ CALL LIGHT IN REACH. WILL CONTINUE TO MONITOR AND PROVIDE CARE UNTIL REPORT OFF TO DAY SHIFT RN.
[2019-04-21 04:34] LABS: Albumin, Blood 2.7 g/dL (3.4-5.0); Anion Gap 5 mmol/L (6-16); Blood Urea Nitrogen 20 mg/dL (8-24); Bun/Creatinine Ratio 18.5 (12.0-20.0); CO2, Blood 32 mmol/L (21-32); Calcium, Blood 8.3 mg/dL (8.5-10.1); Chloride, Blood 98 mmol/L (98-108); Creatinine, Blood 1.08 mg/dL (0.40-1.00); Glomerular Filtration Rate 53 (60-); Glucose, Blood 82 mg/dL (70-99); Phosphorus, Blood 3.1 mg/dL (2.5-4.9); Potassium, Blood 3.4 mmol/L (3.5-5.5); Sodium, Blood 135 mmol/L (136-145)
--- NOTE | 2019-04-21 07:36 | NUR ---
pt laying in bed awake watching tv, states she didn't sleep well last night, denies pain or sob. RT in room 02 is on 1 liter via n/c, pt reports she normally is on 1 liter at home at hs, but when she started getting sob she used it durring the day as well, lungs are clear t/o, exp wheeze noted to upper right field, no cough noted, hrirr, tele in place running afib per monitor see strip, hr continues to be labile, from 90-120's, 1+edema noted to b/l le, in ankles, looks like less than yesterday, ppp+1, cap refill <3sec, vs stable, afebrile, piv s.l. to lac site is clear and patent, btx4, abd round soft nontender, voids without diff, skin has about an inch long wound/incision to sacral area of back. pt thought that was healed, looks almost healed, has dressing for protection, coccyx is clear, bernardo frias, encouraged her to get up to chair for breakfast, she refused. am care provided, call light in reach.
--- NOTE | 2019-04-21 12:26 | NUR ---
PT RESTING IN BED, DOING OK, HEART RATE UNCHANGED, CONTINUES TO BE LABILE, FAMILY AT BEDSIDE VISITING. VS STABLE. NO COMPLAINTS OR NEEDS AT THIS TIME. CALL LIGHT IN REACH.
--- NOTE | 2019-04-21 14:52 | NUR ---
Full report received from Ana Luisa Bass RN.
--- NOTE | 2019-04-22 02:08 | NUR ---
HR / IV DIGOXIN PER PHARMACY & MD PT AFIB, HR 90-120 W/ PRN ORDER OF IV DIGOXIN FOR HR > 100. SPOKE W/ PHARMACY ABOUT CONCERN GIVING MED D/T PT RECEIVING BUMEX AND HAVING A BORDERLINE LOW POTASSIUM THAT HAS BEEN TRENDING DOWN AND PT ALREADY HAVING RECEIVED LOADING DOSE OF DIG. PHARMACY RECOMMENDING POTASSIUM BE GIVEN PRIOR TO ADMINISTRATION IF GIVING AND CLARIFY W/ MD. CALL TO MD CRAWFORD W/ NO NEW ORDERS AND INSTRUCTION TO "LEAVE IT ALONE". WILL CONTINUE TO MONITOR.
[2019-04-22 03:50] LABS: Albumin, Blood 2.8 g/dL (3.4-5.0); Anion Gap 3 mmol/L (6-16); Blood Urea Nitrogen 23 mg/dL (8-24); Bun/Creatinine Ratio 21.7 (12.0-20.0); CO2, Blood 35 mmol/L (21-32); Calcium, Blood 8.8 mg/dL (8.5-10.1); Chloride, Blood 101 mmol/L (98-108); Creatinine, Blood 1.06 mg/dL (0.40-1.00); Glomerular Filtration Rate 54 (60-); Glucose, Blood 73 mg/dL (70-99); Potassium, Blood 4.4 mmol/L (3.5-5.5); Sodium, Blood 139 mmol/L (136-145)
[2019-04-22 03:57] LABS: Digoxin (Lanoxin) 1.32 ug/mL (0.80-2.00)
--- NOTE | 2019-04-22 04:26 | NUR ---
SHIFT SUMMARY PT A&O X4, CALM AND COOPERATIVE. VSS. PT REMAINS IN AFIB, HR CONTINUES TO BE LABILE W/ A RATE OF 70-110. NO PRN IV DIG GIVEN THIS SHIFT, SEE PREVIOUS NOTE. MORNING LAB RESULTS BACK W/ K & DIG LEVELS WNL. LUNG SOUNDS CLEAR, DIM IN BASES. PT WEARING 2L NC UPON CARE ASSUMPTION & T/O SHIFT. SPO2 > 92% ON 2L NC. PT REPETITIVELY ASKING TO GO HOME, SAYING SHE'S READY. WILL CONTINUE TO MONITOR AND PROVIDE CARE UNTIL REPORT OFF TO DAY SHIFT RN.
--- NOTE | 2019-04-22 10:28 | NUR ---
AM NOTE PT ALERT AND ORIENTED. AFIB CONTINUED. RATE 90-115BPM. PT STARTED ON DIGOXEN THIS AM. PT STILL SOB WITH ACTIVITY. SHE ID TAKING A SHOWER USING A ROLL IN SHOWER CHAIR. PT DOES STATE THAT SHE FEELS A LITTLE BETTER TODAY. CONTINUE POT.
--- NOTE | 2019-04-22 19:30 | NUR ---
ASSUMED CARE PT IN ROOM RESTING COMFORTABLY WITH [facility] AT [facility]. PER DAY SHIFT RN PT HAS BEEN STARTED ON ORAL DIGOXIN TODAY FOR HR CONTROL. HR HAS SINCE GONE FROM 130'S TO 90'S. PT REPORTS FEELING BETTER. VSS. PT ABLE TO STAND AND WALK TO BATHROOM W/ SBA. RESP EVEN UNLABORED ON 2L NC WHICH IS PT BASELINE. DENIES ANY PAIN AT THIS TIME. PT REPORTING FEELS MUCH BETTER AND READY TO GO HOME. CALL LIGHT IS IN REACH OF PT. PT CALLS APPROPRIATELY.
--- NOTE | 2019-04-23 03:00 | NUR ---
PT HAVING PARANOID DELUSIONS AT APPROX 0245 PT GOT OUT OF BED ON HER OWN AND WAS PUSHING ROOM CHAIR OUT OF ROOM. THIS RN AND FILE DRAWER FINISHER TO ROOM TO ASSIST PT. PT WAS VISIBLY AGGITATED REPORTING "THEY HAVE FOUND ME AND YOU NEED TO GET ME OUT OF HERE NOW!". ATTEMPED TO CALM PT AND LEAD PT BACK TO ROOM. PT BECAME EVEN MORE AGGITATED AND YELLED AT STAFF TO SHUT HER DOOR "YOU DONT UNDERSTAND THE GERMANS HAVE FOUND ME AND THERE IS A BOMB IN MY ROOM! YOU HAVE TO GET ME OUT NOW OR WE'RE ALL GOING TO ". PT WAS ESCORTED TO WHEELCHAIR IN HALLWAY AND ATTEMPTED TO CALM PT AGAIN, ADVISING HER NO ONE HAD BEEN INTO PT ROOM BESIDES THIS RN IN THE LAST 45 MIN SINCE I LEFT HER ROOM. PT CONTINUES TO BE INSISTENT, AND ANSWERED ORIENTATION QUESTIONS, PT IS AOX4 AND CONTINUES TO SPEAK LOUDLY IN THE HALLWAY ABOUT BEING A SPY AND PEOPLE COMING AFTER HER. NURSING AVIONICS MECHANIC AND SECURITY CALLED TO AREA. PT STARTING TO SWING ARMS AT STAFF. PT INSISTENT ABOUT NEEDING TO CALL NUMBER. PT ALLOWED TO USE PHONE IN ATTEMPT TO CALM PT. SECURITY WENT INTO PT ROOM TO SEARCH ROOM FOR PT. NOTHING FOUDN IN ROOM. WITH HELP FROM [employer]BESTOS COVERER, NURSING SUPERVISIOR, AND SECURITY. PT WAS CALMED AND WENT BACK TO ROOM. PROVIDER CALLED FOR PRN ANTIANXIETY MEDICATION. WILL MONITOR PT.
[2019-04-23 04:12] LABS: Albumin, Blood 2.9 g/dL (3.4-5.0); Anion Gap 6 mmol/L (6-16); Blood Urea Nitrogen 25 mg/dL (8-24); Bun/Creatinine Ratio 25.8 (12.0-20.0); CO2, Blood 34 mmol/L (21-32); Calcium, Blood 9.2 mg/dL (8.5-10.1); Chloride, Blood 100 mmol/L (98-108); Creatinine, Blood 0.97 mg/dL (0.40-1.00); Glomerular Filtration Rate 60 (60-); Glucose, Blood 82 mg/dL (70-99); Phosphorus, Blood 3.5 mg/dL (2.5-4.9); Potassium, Blood 3.4 mmol/L (3.5-5.5); Sodium, Blood 140 mmol/L (136-145)
--- NOTE | 2019-04-23 04:36 | NUR ---
PT UPDATE ASLEEP IN ROOM RESTING COMFORTABLY. PER PT'S DAUGHTER, PT RECENTLY LOST ON THIS UNIT AND HAS HAD A LOT OF ANXIETY AND A LOT OF TROUBLE SLEEPING. DAUGHTER BELEIVES PT HASN'T SLEPT WELL FOR OVER A WEEK. PT NOW SLEEPING AND THIS RN HAS REQUESTED ALL STAFF TO LEAVE PT ALONE AND NOT ENTER ROOM UNLESS URGENTLY NEEDED TO PT CARE TO ALLOW PT TO SLEEP. 0400 VITAL SINGS BEING DELAYED AT THIS TIME. PREVIOUS VITALS WERE STABLE. HR BEING MONITORED BY TELE.
--- NOTE | 2019-04-23 05:24 | NUR ---
SHIFT SUMMARY PT ASLEEP IN ROOM COMFORTABLY AT THIS TIME. PT HAD EPISODE OF PARANOID HALLUCINATIONS AND DELUSIONS AT APPROX 0245 THIS AM. PT WAS IN [place] TALKING LOUDLY AND THREATENING TO SCREAM. STAFF WAS ABLE TO GET PT BACK TO ROOM AND CALMED DOWN. PT THEN FELL ASLEEP AND THIS RN REQUESTED NO STAFF TO ROOM UNLESS URGENT, TO ALLOW PT TO REST. PT DAUGHTER PT HAS NOT SLEPT WELL FOR MORE THAN A WEEK. SEE PREVIOUS NOTE. RESP EVEN UNLABORED AT THIS TIME ON 2L NC W/ SATS >92%. DENIED PAIN T/O NIGHT. CALL LIGHT IN REACH. BED ALARM ON D/T PT IMPULSIVITY.
[2019-04-23] MEDS ORDERED: BUME2 PO (17:10)
[2019-04-23] MEDS ORDERED: ASCO500 PO (17:10)
[2019-04-23] MEDS ORDERED: DOCU100 PO (17:11)
[2019-04-23] MEDS ORDERED: DIGOX125 MCG PO (17:12)
[2019-04-23] MEDS ORDERED: FERSU90EL PO (17:13)
[2019-04-23] MEDS ORDERED: METO25 PO (17:14)
[2019-04-23] MEDS ORDERED: POTA10T PO (17:15)
--- NOTE | 2019-04-23 18:04 | NUR ---
SHIFT SUMMARY PT ALERT AND ORIENTED. VS STABLE. HR HAS BEEN IN THE 90'S. ORDERS FOR DISCHARGE THIS AM PROVIDED. PT UNABLE TO LEAVE UNTIL THIS EVENING WHEN HER DAUGHTER FINISHED WORK. DISCHARGE INSTRUCTIONS PROVIDED TO BOTH THE PT AND DAUGHTER. FOLLOW-UP APPOINTMENTS HAVE BEEN SCHEDULED. EDUCATION PROVIDED ABOUT NEW MEDICATIONS. IV REMOVED AND INTACT. PT TO BE TAKEN OUT BY WHEELCHAIR.
== END 2019-04-23 18:33 | disposition home or self-care (01) | DRG 291 ==
LOC: ER 20:58 → ICUW 23:52 → ICUE 23:52 → PCU 04-19 20:17
PROVIDERS: Emergency Medicine; Internal Medicine; ADMIT Hospitalist
DX: I13.0 Hypertensive heart and chronic kidney disease with heart failure and stage 1 through stage 4 chronic kidney disease, or unspecified chronic kidney disease (principal); I50.33 Acute on chronic diastolic (congestive) heart failure; N17.9 Acute kidney failure, unspecified; I48.2 Chronic atrial fibrillation; F17.210 Nicotine dependence, cigarettes, uncomplicated; N18.3 Chronic kidney disease, stage 3 (moderate); M10.9 Gout, unspecified; E03.9 Hypothyroidism, unspecified; K21.9 Gastro-esophageal reflux disease without esophagitis; J44.9 Chronic obstructive pulmonary disease, unspecified; Z79.01 Long term (current) use of anticoagulants; Z99.81 Dependence on supplemental oxygen; D50.9 Iron deficiency anemia, unspecified
CPT/HCPCS: 36415; 36600; 71046; 80053; 80069; 80162; 82728; 82803; 83540; 83550; 83880; 84443; 84484; 85025; 93005; 93010; 94640; 94760; 96374; 97110; 97161; 99285-25; J1160; J1940

== ENCOUNTER 2020-02-28 13:58 | Emergency (ER) | payer OTHER ==
[~2020-02-28] VITALS: Ht 160 cm; Wt 80.7 kg
[~2020-02-28 13:58] MED LIST changes: +ASCO500 PO; +BIOTIN1 MG PO; +Calci-Mix500 MG PO; +DIGOX125 MCG PO; +DOCU100 PO; +FERSU90EL PO; +GABA100; +LEG CRAMPS PO; +METO25 PO; +POTA10T PO; +Primidone50 MG; +SALM50IP INH; +Vitamin D2000 UNIT PO
[2020-02-28 14:33] LABS: BASOPHILS ABSOLUTE AUTO 0.08 K/mm3 (0.00-0.23); BASOPHILS PERCENT AUTO 1 % (0-2); EOSINOPHILS ABSOLUTE AUTO 0.21 K/mm3 (0.00-0.68); EOSINOPHILS PERCENT AUTO 3 % (0-6); Hematocrit 47.9 % (33.0-51.0); Hemoglobin 15.6 g/dL (11.5-16.0); IMMATURE GRAN ABSOLUTE AUTO 0.02 K/mm3 (0.00-0.10); IMMATURE GRAN PERCENT AUTO 0 % (0-1); LYMPHOCYTES ABSOLUTE AUTO 1.41 K/mm3 (0.84-5.20); LYMPHOCYTES PERCENT AUTO 20 % (21-46); MONOCYTES ABSOLUTE AUTO 0.68 K/mm3 (0.16-1.47); MONOCYTES PERCENT AUTO 10 % (4-13); Mean Corpuscular HGB 33.8 pg (26.0-34.0); Mean Corpuscular HGB Conc 32.6 g/dL (31.5-36.5); Mean Corpuscular Volume 104 fL (80-100); Mean Platelet Volume 10.8 fL (9.1-12.4); NEUTROPHILS ABSOLUTE AUTO 4.61 K/mm3 (1.96-9.15); NEUTROPHILS PERCENT AUTO 66 % (41-73); Platelet Count 170 K/mm3 (150-400); RDW Coefficient Variation 14.4 % (11.7-14.2); RDW Standard Deviation 55.4 fL (35.1-46.3); Red Blood Cell Count 4.61 M/mm3 (3.80-5.20); White Blood Cell Count 7.01 K/mm3 (4.00-11.30)
[2020-02-28 14:42] LABS: International Normalized Ratio 0.95; Prothrombin Time Results 10.2 Sec (9.7-11.5)
[2020-02-28] MEDS ORDERED: Primidone50 MG PO (14:48)
[2020-02-28] MEDS ORDERED: FLUTICASONE-SA1 EAC4 INH (14:48)
[2020-02-28] MEDS ORDERED: PACERONE100 M1 PO (14:48)
[2020-02-28 14:49] LABS: Alanine Aminotransfer (ALT/SGP 29 U/L (12-78); Albumin, Blood 3.2 g/dL (3.4-5.0); Albumin/Globulin Ratio 0.8 (0.8-1.8); Alk Phos 128 U/L (50-136); Anion Gap 3 mmol/L (6-16); Aspartate Aminotrans (AST/SGOT 24 U/L (12-37); Bilirubin, Total 0.4 mg/dL (0.1-1.0); Blood Urea Nitrogen 17 mg/dL (8-24); Bun/Creatinine Ratio 18.3 (12.0-20.0); CO2, Blood 34 mmol/L (21-32); Calcium, Blood 8.9 mg/dL (8.5-10.1); Chloride, Blood 104 mmol/L (98-108); Creatinine, Blood 0.93 mg/dL (0.40-1.00); Globulin, Blood 3.8 g/dL (2.2-4.0); Glomerular Filtration Rate >60 (60-); Glucose, Blood 96 mg/dL (70-99); Sodium, Blood 141 mmol/L (136-145)
[2020-02-28] MEDS ORDERED: ALENDRONATE SOD10 MG PO (14:49)
[2020-02-28] MEDS ORDERED: ALLO300 PO (14:49)
[2020-02-28] MEDS ORDERED: BUME1 PO (14:50)
[2020-02-28] MEDS ORDERED: Biotin1 MG PO (14:51)
[2020-02-28] MEDS ORDERED: AZIT500 PO (15:58)
== END 2020-02-28 16:32 | disposition home or self-care (01) ==
LOC: ER 13:58
PROVIDERS: Emergency Medicine
DX: J20.9 Acute bronchitis, unspecified (principal); E03.9 Hypothyroidism, unspecified; E78.00 Pure hypercholesterolemia, unspecified; F17.210 Nicotine dependence, cigarettes, uncomplicated; Z91.09 Other allergy status, other than to drugs and biological substances; Z79.899 Other long term (current) drug therapy; Z79.51 Long term (current) use of inhaled steroids; Z99.81 Dependence on supplemental oxygen
CPT/HCPCS: 36415; 71045; 80053; 85025; 85610; 85730; 86850; 86900; 86901; 93005; 93010; 99284-25

== ENCOUNTER 2021-01-04 19:48 | Emergency (ER) | payer OTHER, SELFPAY ==
[~2021-01-04] VITALS: Ht 160 cm; Wt 78.5 kg
[~2021-01-04 19:48] MED LIST changes: +ALENDRONATE SOD10 MG PO; +AZIT500 PO; +BUME1 PO; +Biotin1 MG PO; +FLUTICASONE-SA1 EAC4 INH; +PACERONE100 M1 PO; +Primidone50 MG PO
[2021-01-05 00:12] LABS: BASOPHILS ABSOLUTE AUTO 0.04 K/mm3 (0.00-0.23); BASOPHILS PERCENT AUTO 0 % (0-2); EOSINOPHILS ABSOLUTE AUTO 0.02 K/mm3 (0.00-0.68); EOSINOPHILS PERCENT AUTO 0 % (0-6); Hematocrit 48.3 % (33.0-51.0); Hemoglobin 15.6 g/dL (11.5-16.0); IMMATURE GRAN ABSOLUTE AUTO 0.07 K/mm3 (0.00-0.10); IMMATURE GRAN PERCENT AUTO 1 % (0-1); LYMPHOCYTES ABSOLUTE AUTO 0.45 K/mm3 (0.84-5.20); LYMPHOCYTES PERCENT AUTO 3 % (21-46); MONOCYTES ABSOLUTE AUTO 1.07 K/mm3 (0.16-1.47); MONOCYTES PERCENT AUTO 8 % (4-13); Mean Corpuscular HGB 33.8 pg (26.0-34.0); Mean Corpuscular HGB Conc 32.3 g/dL (31.5-36.5); Mean Corpuscular Volume 105 fL (80-100); Mean Platelet Volume 10.1 fL (9.1-12.4); NEUTROPHILS ABSOLUTE AUTO 12.52 K/mm3 (1.96-9.15); NEUTROPHILS PERCENT AUTO 88 % (41-73); Platelet Count 218 K/mm3 (150-400); RDW Coefficient Variation 14.5 % (11.7-14.2); RDW Standard Deviation 56.2 fL (35.1-46.3); Red Blood Cell Count 4.61 M/mm3 (3.80-5.20); White Blood Cell Count 14.17 K/mm3 (4.00-11.30)
[2021-01-05 00:34] LABS: Albumin, Blood 3.4 g/dL (3.4-5.0); Albumin/Globulin Ratio 0.8 (0.8-1.8); Bilirubin, Total 0.6 mg/dL (0.1-1.0); Bun/Creatinine Ratio 18.9 (12.0-20.0); Calcium, Blood 9.3 mg/dL (8.5-10.1); Creatinine, Blood 1.32 mg/dL (0.40-1.00); Potassium, Blood 3.7 mmol/L (3.5-5.5); Total Protein, Blood 7.4 g/dL (6.4-8.2)
[2021-01-05] MEDS ORDERED: Prednisone50 MG PO (00:40)
[2021-01-05] MEDS ORDERED: Zithromax250 MG PO (00:40)
== END 2021-01-05 01:10 | disposition home or self-care (01) ==
LOC: ER 19:48
PROVIDERS: Emergency Medicine
DX: J44.1 Chronic obstructive pulmonary disease with (acute) exacerbation (principal); S60.052A Contusion of left little finger without damage to nail, initial encounter; S70.02XA Contusion of left hip, initial encounter; I50.32 Chronic diastolic (congestive) heart failure; N18.30 Chronic kidney disease, stage 3 unspecified; E78.00 Pure hypercholesterolemia, unspecified; E03.9 Hypothyroidism, unspecified; K21.9 Gastro-esophageal reflux disease without esophagitis; I48.91 Unspecified atrial fibrillation; F17.210 Nicotine dependence, cigarettes, uncomplicated; Z86.718 Personal history of other venous thrombosis and embolism; Z79.01 Long term (current) use of anticoagulants; Z79.899 Other long term (current) drug therapy; Z91.041 Radiographic dye allergy status; W01.10XA Fall on same level from slipping, tripping and stumbling with subsequent striking against unspecified object, initial encounter
CPT/HCPCS: 71045; 73120; 73502; 80053; 85025; 99284-25; A9270; J7512

== ENCOUNTER 2021-04-26 00:45 | Emergency (ER) | payer OTHER ==
[~2021-04-26] VITALS: Ht 160 cm; Wt 78.5 kg
[~2021-04-26 00:45] MED LIST changes: +Prednisone50 MG PO; +Zithromax250 MG PO
[2021-04-26 01:58] LABS: Anion Gap 3 mmol/L (6-16); Blood Urea Nitrogen 24 mg/dL (8-24); Bun/Creatinine Ratio 17.6 (12.0-20.0); CO2, Blood 30 mmol/L (21-32); CPK Creatine Kinase 91 U/L (26-193); Calcium, Blood 8.4 mg/dL (8.5-10.1); Chloride, Blood 104 mmol/L (98-108); Creatinine, Blood 1.36 mg/dL (0.40-1.00); Glomerular Filtration Rate 40 (60-); Glucose, Blood 103 mg/dL (70-99); Potassium, Blood 4.5 mmol/L (3.5-5.5); Sodium, Blood 137 mmol/L (136-145)
[2021-04-26 02:03] LABS: BASOPHILS ABSOLUTE AUTO 0.08 K/mm3 (0.00-0.23); BASOPHILS PERCENT AUTO 1 % (0-2); EOSINOPHILS ABSOLUTE AUTO 0.28 K/mm3 (0.00-0.68); EOSINOPHILS PERCENT AUTO 3 % (0-6); Hematocrit 41.1 % (33.0-51.0); Hemoglobin 13.3 g/dL (11.5-16.0); IMMATURE GRAN ABSOLUTE AUTO 0.14 K/mm3 (0.00-0.10); IMMATURE GRAN PERCENT AUTO 2 % (0-1); LYMPHOCYTES ABSOLUTE AUTO 1.71 K/mm3 (0.84-5.20); LYMPHOCYTES PERCENT AUTO 20 % (21-46); MONOCYTES ABSOLUTE AUTO 0.82 K/mm3 (0.16-1.47); MONOCYTES PERCENT AUTO 10 % (4-13); Mean Corpuscular HGB 34.7 pg (26.0-34.0); Mean Corpuscular HGB Conc 32.4 g/dL (31.5-36.5); Mean Corpuscular Volume 107 fL (80-100); Mean Platelet Volume 10.7 fL (9.1-12.4); NEUTROPHILS PERCENT AUTO 65 % (41-73); Platelet Count 194 K/mm3 (150-400); RDW Coefficient Variation 16.5 % (11.7-14.2); Red Blood Cell Count 3.83 M/mm3 (3.80-5.20); White Blood Cell Count 8.53 K/mm3 (4.00-11.30)
[2021-04-26 04:08] LABS: Troponin I <0.015 ng/mL (0.000-0.040)
== END 2021-04-26 06:28 | disposition home or self-care (01) ==
LOC: ER 00:45
PROVIDERS: Emergency Medicine
DX: S22.21XA Fracture of manubrium, initial encounter for closed fracture (principal); R33.9 Retention of urine, unspecified; R15.9 Full incontinence of feces; J44.9 Chronic obstructive pulmonary disease, unspecified; I48.91 Unspecified atrial fibrillation; N18.30 Chronic kidney disease, stage 3 unspecified; I50.32 Chronic diastolic (congestive) heart failure; F17.210 Nicotine dependence, cigarettes, uncomplicated; Z91.041 Radiographic dye allergy status; Z79.01 Long term (current) use of anticoagulants; Z79.899 Other long term (current) drug therapy; W18.30XA Fall on same level, unspecified, initial encounter
CPT/HCPCS: 51702; 51798; 70450; 71260; 72125; 80048; 82272; 82550; 84484; 85025; 93005; 93010; 96374-59; 96375-59; 99285-25; J1200; J2270; J2405; Q9967

== ENCOUNTER 2021-09-30 00:35 | Inpatient (IN) | payer OTHER ==
[~2021-09-30] VITALS: Wt 70.9 kg
[~2021-09-30 00:35] MED LIST changes: -Calci-Mix500 MG PO; +Calcium Carbon500 MG PO; +EUTHYROX50 MCG PO
[2021-09-30 11:05] LABS: BASOPHILS ABSOLUTE AUTO 0.07 K/mm3 (0.00-0.23); BASOPHILS PERCENT AUTO 1 % (0-2); EOSINOPHILS ABSOLUTE AUTO 0.06 K/mm3 (0.00-0.68); EOSINOPHILS PERCENT AUTO 1 % (0-6); Hematocrit 51.9 % (33.0-51.0); Hemoglobin 17.6 g/dL (11.5-16.0); IMMATURE GRAN ABSOLUTE AUTO 0.03 K/mm3 (0.00-0.10); IMMATURE GRAN PERCENT AUTO 0 % (0-1); LYMPHOCYTES ABSOLUTE AUTO 0.69 K/mm3 (0.84-5.20); LYMPHOCYTES PERCENT AUTO 6 % (21-46); MONOCYTES ABSOLUTE AUTO 1.04 K/mm3 (0.16-1.47); MONOCYTES PERCENT AUTO 9 % (4-13); Mean Corpuscular HGB 34.9 pg (26.0-34.0); Mean Corpuscular HGB Conc 33.9 g/dL (31.5-36.5); Mean Corpuscular Volume 103 fL (80-100); NEUTROPHILS ABSOLUTE AUTO 10.24 K/mm3 (1.96-9.15); NEUTROPHILS PERCENT AUTO 84 % (41-73); Platelet Count 233 K/mm3 (150-400); RDW Coefficient Variation 15.8 % (11.7-14.2); RDW Standard Deviation 58.9 fL (35.1-46.3); Red Blood Cell Count 5.05 M/mm3 (3.80-5.20); White Blood Cell Count 12.13 K/mm3 (4.00-11.30)
[2021-09-30 11:44] LABS: Alanine Aminotransfer (ALT/SGP 25 U/L (12-78); Albumin, Blood 2.9 g/dL (3.4-5.0); Albumin/Globulin Ratio 0.6 (0.8-1.8); Alk Phos 126 U/L (50-136); Anion Gap 6 mmol/L (6-16); Aspartate Aminotrans (AST/SGOT 28 U/L (12-37); Bilirubin, Total 0.9 mg/dL (0.1-1.0); Blood Urea Nitrogen 47 mg/dL (8-24); Bun/Creatinine Ratio 33.3 (12.0-20.0); CO2, Blood 37 mmol/L (21-32); Calcium, Blood 10.1 mg/dL (8.5-10.1); Chloride, Blood 93 mmol/L (98-108); Creatinine, Blood 1.41 mg/dL (0.40-1.00); Globulin, Blood 4.7 g/dL (2.2-4.0); Glomerular Filtration Rate 36 (60-); Glucose, Blood 141 mg/dL (70-99); Magnesium, Blood 1.9 mg/dL (1.6-2.4); Potassium, Blood 4.1 mmol/L (3.5-5.5); Sodium, Blood 136 mmol/L (136-145); Total Protein, Blood 7.6 g/dL (6.4-8.2)
[2021-09-30 11:45] LABS: Troponin I <0.015 ng/mL (0.000-0.040)
[2021-09-30 19:18] LABS: Albumin, Blood 2.4 g/dL (3.4-5.0); Anion Gap 5 mmol/L (6-16); Blood Urea Nitrogen 58 mg/dL (8-24); CO2, Blood 36 mmol/L (21-32); Calcium, Blood 8.5 mg/dL (8.5-10.1); Chloride, Blood 99 mmol/L (98-108); Creatinine, Blood 1.38 mg/dL (0.40-1.00); Glomerular Filtration Rate 37 (60-); Glucose, Blood 113 mg/dL (70-99); Phosphorus, Blood 4.8 mg/dL (2.5-4.9); Potassium, Blood 3.6 mmol/L (3.5-5.5); Sodium, Blood 140 mmol/L (136-145)
[2021-10-01 04:49] LABS: Hematocrit 46.6 % (33.0-51.0); Hemoglobin 15.5 g/dL (11.5-16.0); Mean Corpuscular HGB 34.4 pg (26.0-34.0); Mean Corpuscular HGB Conc 33.3 g/dL (31.5-36.5); Mean Corpuscular Volume 104 fL (80-100); Mean Platelet Volume 10.7 fL (9.1-12.4); Platelet Count 189 K/mm3 (150-400); RDW Coefficient Variation 15.3 % (11.7-14.2); RDW Standard Deviation 58.5 fL (35.1-46.3); White Blood Cell Count 8.04 K/mm3 (4.00-11.30)
[2021-10-01 05:06] LABS: Albumin, Blood 2.3 g/dL (3.4-5.0); Anion Gap 7 mmol/L (6-16); Blood Urea Nitrogen 61 mg/dL (8-24); CO2, Blood 36 mmol/L (21-32); Calcium, Blood 8.2 mg/dL (8.5-10.1); Chloride, Blood 99 mmol/L (98-108); Creatinine, Blood 1.22 mg/dL (0.40-1.00); Glomerular Filtration Rate 43 (60-); Glucose, Blood 113 mg/dL (70-99); Magnesium, Blood 2.5 mg/dL (1.6-2.4); Phosphorus, Blood 4.4 mg/dL (2.5-4.9); Sodium, Blood 142 mmol/L (136-145)
[2021-10-01 05:57] LABS: BAND PERCENT MAN 25 % (0-8); BASOPHILS ABSOLUTE MAN 0.08 K/mm3 (0.00-0.23); BASOPHILS PERCENT MAN 1 % (0-2); EOSINOPHILS PERCENT MAN 0 % (0-6); LYMPHOCYTES PERCENT MAN 10 % (21-46); METAMYELOCYTE ABSOLUTE MAN 0.08 K/mm3 (0.00-0.00); METAMYELOCYTE PERCENT MAN 1 % (0-0); MONOCYTES ABSOLUTE MAN 0.56 K/mm3 (0.16-1.47); MONOCYTES PERCENT MAN 7 % (4-13); NEUTROPHILS ABSOLUTE MAN 6.51 K/mm3 (1.96-9.15); SEG NEUTROPHILS PERCENT MAN 56 % (41-73); TOTAL CELLS COUNTED 100
--- NOTE | 2021-10-01 06:07 | NUR ---
RA 68% WITH FIRST ASSESSMENT/VS. LS C/D. PT DENIED SOB/CHEST TIGHTNESS. PT PLACED ON 4.5L O2 NC. SUSTAINING 90% O2. DR IVEY NOTIFIED AT 194. CXRAY ORDER OBTAINED AND PLACED. PT TO CT/XRAY AT APPROX 2029. NG TUBE OUTPUT APPROX 1L THROUGHOUT SHIFT. DENIED PAIN MEDICATIONS. R ARM WRAPPED W/ SPLINT IN PLACE. USED BEDPAN TO VOID. NO OTHER ISSUES OVERNIGHT.
[2021-10-01 17:26] LABS: Source, Urine Voided
[2021-10-01 17:30] LABS: Appearance, Urine Cloudy (Clear); Bilirubin, Urine Neg (Neg); Blood, Urine 2+ (Neg); Color, Urine Yellow (P-Yellow); Glucose Qualitative, Urine Neg (Neg); Ketones, Urine 2+ (Neg); Leukocyte Esterase, Urine 3+ (Neg); Nitrite, Urine Neg (Neg); Protein, Urine 2+ (Neg); Urobilinogen, Urine NORM (Normal)
[2021-10-01 18:22] LABS: White Blood Cells, Urine 50-100 /hpf (0-5)
[2021-10-01 18:24] LABS: Bacteria Many /hpf
[2021-10-01 18:26] LABS: Squamous Epithelial Cells Many /hpf (Few)
[2021-10-02 06:01] LABS: Hematocrit 47.7 % (33.0-51.0); Hemoglobin 15.5 g/dL (11.5-16.0); Mean Corpuscular HGB 34.3 pg (26.0-34.0); Mean Corpuscular HGB Conc 32.5 g/dL (31.5-36.5); Mean Corpuscular Volume 106 fL (80-100); Mean Platelet Volume 11.3 fL (9.1-12.4); Platelet Count 182 K/mm3 (150-400); RDW Coefficient Variation 15.8 % (11.7-14.2); RDW Standard Deviation 61.8 fL (35.1-46.3); Red Blood Cell Count 4.52 M/mm3 (3.80-5.20); White Blood Cell Count 9.39 K/mm3 (4.00-11.30)
[2021-10-02 06:23] LABS: Albumin, Blood 2.1 g/dL (3.4-5.0); Anion Gap 11 mmol/L (6-16); Blood Urea Nitrogen 66 mg/dL (8-24); Bun/Creatinine Ratio 71.5 (12.0-20.0); CO2, Blood 35 mmol/L (21-32); Calcium, Blood 8.1 mg/dL (8.5-10.1); Chloride, Blood 101 mmol/L (98-108); Creatinine, Blood 0.92 mg/dL (0.40-1.00); Glomerular Filtration Rate 59 (60-); Glucose, Blood 86 mg/dL (70-99); Magnesium, Blood 2.6 mg/dL (1.6-2.4); Phosphorus, Blood 2.8 mg/dL (2.5-4.9); Potassium, Blood 3.2 mmol/L (3.5-5.5); Sodium, Blood 147 mmol/L (136-145)
--- NOTE | 2021-10-02 06:28 | NUR ---
PT IS IN BED WHERE SHE REMAINS THROUGHOUT THE NIGHT AND IS RESTING COMFORTABLY. A&O, CONDITION IS STABLE. C/O RUE PAIN AND MEDICATED WITH IV DILAUDID PRN WITH POSITIVE EFFECT, NO OTHER COMPLAINTS. ASSISTED WITH CARE AND ADL, ASSISTED WITH OTHER TOILETING NEEDS. IMPAIRED FUNCTION IN THE RUE AT THIS TIME, PT IS NWB IN THE AFFECTED EXTREMITY. HOWEVER, RIGHT HAND CIRCULATION IS PATENT EVIDENCED BY PULSE AND MOVEMENT. PT WAS GIVEN HER CALL LIGHT AND ENCOURAGED TO CALL FOR HELP WHEN ASSISTANCE IS NEEDED.
[2021-10-02 06:36] LABS: BAND PERCENT MAN 12 % (0-8); BASOPHILS PERCENT MAN 0 % (0-2); EOSINOPHILS PERCENT MAN 0 % (0-6); LYMPHOCYTES ABSOLUTE MAN 0.65 K/mm3 (0.84-5.20); LYMPHOCYTES PERCENT MAN 7 % (21-46); MONOCYTES PERCENT MAN 16 % (4-13); NEUTROPHILS ABSOLUTE MAN 7.23 K/mm3 (1.96-9.15); SEG NEUTROPHILS PERCENT MAN 65 % (41-73); TOTAL CELLS COUNTED 100
--- NOTE | 2021-10-02 17:01 | NUR ---
SHIFT SUMMARY PT A&OX4, VSS/2LNC-BASELINE, PER TELE S@79. R SHOULDER/SLING/NWB. SBO:NPO/SIPS, NGT LIS ALTAF MARIE, 350 MLS OUT THIS SHIFT, FREE WATER 200 MLS Q6. NEW POWERGLIDE PLACED BENEDICT; LR @ 100 MLS/HR. AMB: DIFFICULT STAND/PIVOT TO BSC/CHAIR. VOIDING/BEDPAN. WILL REPORT TO ONCOMING NOC GM.
--- NOTE | 2021-10-03 01:32 | NUR ---
PT ACCIDENTALLY PULLED NG TUBE OUT AT 0100. NO OUTPUT NOTED FOR SHIFT. DR. NUÑEZ NOTIFIED OF EVENT. PT IS PASSING FLATUS. PT RECEIVING 200ML FREE WATER Q6H D/T INCREASED NA+. PER DRR. NUÑEZ, OKAY TO LEAVE NG TUBE OUT AT THIS TIME. WILL PASS ON TO DAY SHIFT TO REEVALUATE CONT NEED. PT IN NO DISTRESS THROUGHOUT EVENT
[2021-10-03 05:31] LABS: BASOPHILS ABSOLUTE AUTO 0.07 K/mm3 (0.00-0.23); BASOPHILS PERCENT AUTO 1 % (0-2); EOSINOPHILS ABSOLUTE AUTO 0.04 K/mm3 (0.00-0.68); EOSINOPHILS PERCENT AUTO 0 % (0-6); Hematocrit 43.1 % (33.0-51.0); Hemoglobin 13.7 g/dL (11.5-16.0); IMMATURE GRAN ABSOLUTE AUTO 0.12 K/mm3 (0.00-0.10); IMMATURE GRAN PERCENT AUTO 1 % (0-1); LYMPHOCYTES ABSOLUTE AUTO 0.96 K/mm3 (0.84-5.20); LYMPHOCYTES PERCENT AUTO 9 % (21-46); MONOCYTES ABSOLUTE AUTO 1.13 K/mm3 (0.16-1.47); MONOCYTES PERCENT AUTO 11 % (4-13); Mean Corpuscular HGB Conc 31.8 g/dL (31.5-36.5); Mean Corpuscular Volume 107 fL (80-100); Mean Platelet Volume 10.8 fL (9.1-12.4); NEUTROPHILS ABSOLUTE AUTO 8.26 K/mm3 (1.96-9.15); NEUTROPHILS PERCENT AUTO 78 % (41-73); NRBC ABSOLUTE 0.02 K/mm3 (0.00-0.02); NRBC Auto 0.2 /100 WBC (0.0-0.2); Platelet Count 182 K/mm3 (150-400); RDW Coefficient Variation 15.6 % (11.7-14.2); RDW Standard Deviation 61.1 fL (35.1-46.3); Red Blood Cell Count 4.03 M/mm3 (3.80-5.20); White Blood Cell Count 10.58 K/mm3 (4.00-11.30)
[2021-10-03 05:58] LABS: Anion Gap 8 mmol/L (6-16); Blood Urea Nitrogen 54 mg/dL (8-24); Bun/Creatinine Ratio 73.3 (12.0-20.0); CO2, Blood 39 mmol/L (21-32); Calcium, Blood 7.4 mg/dL (8.5-10.1); Chloride, Blood 99 mmol/L (98-108); Creatinine, Blood 0.74 mg/dL (0.40-1.00); Glomerular Filtration Rate >60 (60-); Glucose, Blood 76 mg/dL (70-99); Phosphorus, Blood 1.8 mg/dL (2.5-4.9); Potassium, Blood 3.2 mmol/L (3.5-5.5); Sodium, Blood 146 mmol/L (136-145)
--- NOTE | 2021-10-03 06:29 | NUR ---
VSS. IV FLUIDS RUNNING. PT DENIED NEED FOR PAIN MEDICATIONS THROUGHOUT SHIFT. +BS. +FLATUS. 200ML FREE H2O Q6H. NA+ THIS AM 146. PT ACCIDENTALLY PULLED OUT NG TUBE AT APPROX 0100. DR JOAQUIN ANDERSEN. GIVEN ORDERS TO LEAVE OUT NG TUBE AT THIS TIME. BY 0100, NO NEW DRAINAGE WAS NOTED IN SUCTION CANNISTER. NO N/V POST NG TUBE REMOVAL. NO INCREASE IN PAIN PER PT. STILL PASSING FLATUS. NO OTHER ISSUES OVERNIGHT.
--- NOTE | 2021-10-03 15:21 | NUR ---
SHIFT SUMMARY PT A&OX4, VSS/2LNC(BASE), POWERGLIDE BENEDICT. DENIES PAIN. DENIES N&V, YOSVANY CLD. STAND PIVOT TO CHAIR/BSC, UP TO CHAIR ALL AFTERNOON. PASSING FLATUS. RUE FX IN SPLINT/SLING. WILL REPORT TO NEXT RN.
[2021-10-04 04:17] LABS: Albumin, Blood 1.8 g/dL (3.4-5.0); Anion Gap 4 mmol/L (6-16); Blood Urea Nitrogen 39 mg/dL (8-24); Bun/Creatinine Ratio 59.6 (12.0-20.0); CO2, Blood 40 mmol/L (21-32); Calcium, Blood 7.7 mg/dL (8.5-10.1); Chloride, Blood 96 mmol/L (98-108); Creatinine, Blood 0.65 mg/dL (0.40-1.00); Glomerular Filtration Rate >60 (60-); Glucose, Blood 84 mg/dL (70-99); Phosphorus, Blood 2.7 mg/dL (2.5-4.9); Potassium, Blood 3.1 mmol/L (3.5-5.5); Sodium, Blood 140 mmol/L (136-145)
--- NOTE | 2021-10-04 04:46 | NUR ---
REPORT RECIEVED FROM IRISH HOLLIDAY AT ED AT 7630.
--- NOTE | 2021-10-04 04:47 | NUR ---
TRANSFER FROM ED AT 0415. PT ARRIVED FROM ED AT 0415 AOX4. MILD HYPOTENSIVE BUT ASYMPTOMATIC. PT DENIES CHEST PAIN, SOB, DIZZINESS AND LIGHT-HEADEDNESS. PT ADMITTED FOR GALLSTONES BUT CURRENTLY EXPERIENCING NO PAIN, NO NAUSEA AND NO VOMITING. AFEBRILE. BT PRESENT. PT DENIES N/T. NPO. PAIN MED ORDER FOR MORPHINE, EDUCATE PT OF SIDE EFFECTS OF MED, FOR POTENTIAL IN LOWERING BP. PT RECEPTIVE AND HAD A GOOD UNDERSTANDING WITH THE TEACHING. REORIENT IN ROOM. CALL LIGHT WITHIN REACH. WILL CONTINUE TO MONITOR.
--- NOTE | 2021-10-04 05:35 | NUR ---
SHIFT SUMMARY PT AOX4. VSS. ADMITTED FOR SBO AND R DISTAL HUMERUS FX, NON SURGICAL. PT DENIES ABD PAIN, NAUSEA AND VOMITING. TOLERATING CLEAR LIQ DIET. BUT PT C/O R ELBOW PAIN, 8/10 PAIN LEVEL. PT HAS SOME SWELLING ON R ARM BUT DENIES NUMBNESS AND TINGLING SENSATION. PAIN MANAGED WITH 0.25MG DILAUDID INSTEAD OF 0.5MG PER PT REQUEST DUE TO SIDE EFFECT OF INCREASE CONFUSION AND ALSO TYLENOL (PO). ENC ORAL FLUIDS. DX WITH E.COLI, UTI. VOIDING WITHOUT ISSUE. PASSING A LOT OF FLATUS BUT DENIES BM. BT PRESENT/ACTIVE. STILL EXPERIENCING SOME ELECTROLYT IMBALANCE THIS AM, SEE LAB AT EMR. LUNGS ARE CLEAR. ENC DEEP BREATHING EXERCISE. CALL LIGHT WITHIN REACH. WILL PROVIDE REPORT TO ONCOMING NURSE.
--- NOTE | 2021-10-04 18:39 | NUR ---
SUMMARY OOB TO CHAIR TODAY, TOLERATED WELL, WORKED W/ PT/OT, MEDICATED ONCE FOR R ARM PAIN, PT CURRENTLY DENIES ANY NEED FOR PAIN MEDS AT THIS TIME, TOLERATED FULL LIQUID DIET TODAY, PASSING FLATUS, NO ACUTE CHANGES THIS SHIFT.
--- NOTE | 2021-10-05 04:05 | NUR ---
SHIFT SUMMARY PT A&O X4 AND IN PLEASENT MOOD T/O SHIFT. PT TOLERATING PO INTAKE, BOWEL TONES HYPER ACTIVE IN ALL 4 QUADRANTS, PT REPORTS PASSING FLATUS. VOIDING WELL. MEDICATED PAIN PER EMAR. CALL LIGHT W/IN REACH AND PT USING APPROPRIATELY. VSS.
--- NOTE | 2021-10-05 11:16 | NUR ---
OFFERED TO ASSIST OOB, PT REFUSED AT THIS TIME, STATE SHE WILL GET UP WHEN LUNCH GETS HERE, CONCERNED ABOUT CONSTIPATION AND HAVING A BM BEFORE DC, DR. SALAMANCA AWARE, ORDER NOTED FOR DULCOLAX SUPP.
[2021-10-05 11:35] LABS: Anion Gap 1 mmol/L (6-16); Blood Urea Nitrogen 20 mg/dL (8-24); Bun/Creatinine Ratio 35.1 (12.0-20.0); CO2, Blood 40 mmol/L (21-32); Calcium, Blood 8.7 mg/dL (8.5-10.1); Chloride, Blood 99 mmol/L (98-108); Creatinine, Blood 0.57 mg/dL (0.40-1.00); Glomerular Filtration Rate >60 (60-); Glucose, Blood 108 mg/dL (70-99); Potassium, Blood 3.8 mmol/L (3.5-5.5); Sodium, Blood 140 mmol/L (136-145)
[2021-10-05] MEDS ORDERED: ACET325 PO (13:20)
[2021-10-05] MEDS ORDERED: LEVFLO500 PO (13:21)
[2021-10-05] MEDS ORDERED: PANT20 PO (13:22)
--- NOTE | 2021-10-05 18:37 | NUR ---
DC'D HOME, DC INSTRUCTIONS GIVEN TO PT AND DAUGHTER, VERBALIZED UNDERSTANDING, PT DC'D HOME ON 3L O2 VIA NC ORDERED.
--- NOTE | 2021-10-08 09:38 | NUR ---
Received referral from nurse progressive care unit registered nurse (Wisam Russo) on 10/05/2021 at 1038. Patient was admitted on 09/30/2021 due to small bowell obstruction. Patient discharged 10/05/2021 with orders for home health and elected [facility]. Attempted reach patient on 10/06/2021 at 1506. Unfortunately patient did not answer. Left voicemail asking for return phone call. Second attempt to reach patient on 10/07/2021 at 0917. Again patient did not answer. Left voicemail asking for return phone call. Review of patient's records today- 10/08/2021 indicate that patient re-admitted to [facility] on 10/08/2021 due to chronic a fib with RVR. No further interventions required. Yenifer Keller Referral Liaison
== END 2021-10-05 18:03 | disposition home or self-care (01) | DRG 389 ==
LOC: ER 00:35 → SURS 04:40
PROVIDERS: Internal Medicine; Orthopaedic Surgery; ADMIT Internal Medicine
DX: K56.609 Unspecified intestinal obstruction, unspecified as to partial versus complete obstruction (principal); S42.401A Unspecified fracture of lower end of right humerus, initial encounter for closed fracture; N39.0 Urinary tract infection, site not specified; E87.0 Hyperosmolality and hypernatremia; I50.32 Chronic diastolic (congestive) heart failure; N17.9 Acute kidney failure, unspecified; J44.9 Chronic obstructive pulmonary disease, unspecified; E87.6 Hypokalemia; E03.9 Hypothyroidism, unspecified; B96.20 Unspecified Escherichia coli [E. coli] as the cause of diseases classified elsewhere; D64.9 Anemia, unspecified; Z23 Encounter for immunization; E83.39 Other disorders of phosphorus metabolism; R94.31 Abnormal electrocardiogram [ECG] [EKG]; Z88.8 Allergy status to other drugs, medicaments and biological substances; N18.30 Chronic kidney disease, stage 3 unspecified; E78.00 Pure hypercholesterolemia, unspecified; Z86.718 Personal history of other venous thrombosis and embolism; I48.91 Unspecified atrial fibrillation; Z90.710 Acquired absence of both cervix and uterus; Z90.722 Acquired absence of ovaries, bilateral; Z90.49 Acquired absence of other specified parts of digestive tract; Z98.890 Other specified postprocedural states; Z79.899 Other long term (current) drug therapy; X58.XXXA Exposure to other specified factors, initial encounter; Z90.721 Acquired absence of ovaries, unilateral; W06.XXXA Fall from bed, initial encounter
CPT/HCPCS: 36415; 70450; 71045; 73080; 73200; 74176; 76377; 80048; 80053; 80069; 81001; 83690; 83735; 84145; 84484; 85025; 87077; 87086; 87186; 93005; 93010; 96365; 96366; 97110; 97162; 97530; 99285-25; A9270; C1751; C9113; J0696; J0780; J1170; J3480; J7030; J7060; J7120

== ENCOUNTER 2021-10-08 03:57 | Inpatient (IN) | payer OTHER ==
[~2021-10-08] VITALS: Ht 160 cm; Wt 75.0 kg
[~2021-10-08 03:57] MED LIST changes: +ACET325 PO; +LEVFLO500 PO; +PANT20 PO
[2021-10-08 04:30] LABS: BASOPHILS ABSOLUTE AUTO 0.09 K/mm3 (0.00-0.23); BASOPHILS PERCENT AUTO 1 % (0-2); EOSINOPHILS ABSOLUTE AUTO 0.26 K/mm3 (0.00-0.68); EOSINOPHILS PERCENT AUTO 2 % (0-6); Hematocrit 40.5 % (33.0-51.0); Hemoglobin 13.5 g/dL (11.5-16.0); IMMATURE GRAN ABSOLUTE AUTO 0.44 K/mm3 (0.00-0.10); IMMATURE GRAN PERCENT AUTO 4 % (0-1); LYMPHOCYTES ABSOLUTE AUTO 1.69 K/mm3 (0.84-5.20); LYMPHOCYTES PERCENT AUTO 16 % (21-46); MONOCYTES ABSOLUTE AUTO 1.53 K/mm3 (0.16-1.47); MONOCYTES PERCENT AUTO 14 % (4-13); Mean Corpuscular HGB 34.5 pg (26.0-34.0); Mean Corpuscular HGB Conc 33.3 g/dL (31.5-36.5); Mean Corpuscular Volume 104 fL (80-100); Mean Platelet Volume 10.4 fL (9.1-12.4); NEUTROPHILS ABSOLUTE AUTO 6.63 K/mm3 (1.96-9.15); NEUTROPHILS PERCENT AUTO 62 % (41-73); Platelet Count 233 K/mm3 (150-400); RDW Coefficient Variation 14.8 % (11.7-14.2); RDW Standard Deviation 56.9 fL (35.1-46.3); Red Blood Cell Count 3.91 M/mm3 (3.80-5.20); White Blood Cell Count 10.64 K/mm3 (4.00-11.30)
[2021-10-08 04:43] LABS: Bun/Creatinine Ratio 17.9 (12.0-20.0); Creatinine, Blood 1.06 mg/dL (0.40-1.00); Potassium, Blood 3.1 mmol/L (3.5-5.5)
[2021-10-08 04:53] LABS: Magnesium, Blood 1.1 mg/dL (1.6-2.4)
[2021-10-08 07:10] LABS: SARS-Cov-2 (COVID-19) PCR, MMC NEGATIVE (NEGATIVE)
[2021-10-08 10:07] LABS: Magnesium, Blood 1.8 mg/dL (1.6-2.4)
--- NOTE | 2021-10-08 18:51 | NUR ---
RECEIVED PT FROM ER. VSS. AFEBRILE. C/O R ARM PAIN- TYLENOL X1 WITH ADEQUATE CONTROL OF PAIN PER PT. AUO. NO BM. TOLERATING DIET. HR CONTROLLED ON CARDIZEM GTT- REMAINS IN AFIB. CARDIO CONSULTED. FREQUENT ROUNDS TO ENSURE PT SAFETY. PT IN NO APPARENT DISTRESS AT THIS TIME. WILL CONTINUE TO MONITOR UNTIL TRANSFER OF CARE TO ONCOMING RN.
[2021-10-09 04:37] LABS: BASOPHILS ABSOLUTE AUTO 0.04 K/mm3 (0.00-0.23); BASOPHILS PERCENT AUTO 1 % (0-2); EOSINOPHILS ABSOLUTE AUTO 0.23 K/mm3 (0.00-0.68); EOSINOPHILS PERCENT AUTO 3 % (0-6); Hematocrit 37.6 % (33.0-51.0); Hemoglobin 12.5 g/dL (11.5-16.0); IMMATURE GRAN ABSOLUTE AUTO 0.24 K/mm3 (0.00-0.10); IMMATURE GRAN PERCENT AUTO 3 % (0-1); LYMPHOCYTES PERCENT AUTO 16 % (21-46); MONOCYTES ABSOLUTE AUTO 1.05 K/mm3 (0.16-1.47); MONOCYTES PERCENT AUTO 12 % (4-13); Mean Corpuscular HGB 34.2 pg (26.0-34.0); Mean Corpuscular HGB Conc 33.2 g/dL (31.5-36.5); Mean Corpuscular Volume 103 fL (80-100); NEUTROPHILS ABSOLUTE AUTO 5.67 K/mm3 (1.96-9.15); NEUTROPHILS PERCENT AUTO 66 % (41-73); Platelet Count 220 K/mm3 (150-400); RDW Coefficient Variation 14.6 % (11.7-14.2); RDW Standard Deviation 55.2 fL (35.1-46.3); Red Blood Cell Count 3.65 M/mm3 (3.80-5.20); White Blood Cell Count 8.63 K/mm3 (4.00-11.30)
[2021-10-09 04:54] LABS: Anion Gap 3 mmol/L (6-16); Blood Urea Nitrogen 14 mg/dL (8-24); Bun/Creatinine Ratio 17.9 (12.0-20.0); CO2, Blood 36 mmol/L (21-32); Calcium, Blood 8.4 mg/dL (8.5-10.1); Chloride, Blood 98 mmol/L (98-108); Creatinine, Blood 0.78 mg/dL (0.40-1.00); Glomerular Filtration Rate >60 (60-); Glucose, Blood 100 mg/dL (70-99); Potassium, Blood 3.7 mmol/L (3.5-5.5); Sodium, Blood 137 mmol/L (136-145)
--- NOTE | 2021-10-09 06:44 | NUR ---
SHIFT SUMMARY PT ALERT AND ORIENTED X4. PT AFIB 70'S W/ PVC'S. ON CARDIZEM GTT 5ML/HR. BP STABLE. ON NC 2-3L MAINTAINING SATS OVER 91%. ARM PAIN RELIEVED PER EMAR. BENEDICT POWERGLIDE DRAWS BLOOD. IN BED RESTING WITH CALL ALARM AT SIDE. WILL CONTINUE TO MONITOR UNTIL REPORT GIVEN TO DAYSHIFT RN
--- NOTE | 2021-10-09 12:00 | NUR ---
ECHOCARDIOGRAM COMPLETE
--- NOTE | 2021-10-09 18:39 | NUR ---
VSS. AFEBRILE. C/O R ARM PAIN- TYLENOL X1, ADEQUATE CONTROL OF PAIN PER PT. AUO. BM X1.
[2021-10-10 05:28] LABS: Hematocrit 34.7 % (33.0-51.0); Hemoglobin 11.7 g/dL (11.5-16.0); Mean Corpuscular HGB Conc 33.7 g/dL (31.5-36.5); Mean Corpuscular Volume 104 fL (80-100); Platelet Count 261 K/mm3 (150-400); RDW Coefficient Variation 14.8 % (11.7-14.2); RDW Standard Deviation 55.7 fL (35.1-46.3); Red Blood Cell Count 3.34 M/mm3 (3.80-5.20); White Blood Cell Count 8.49 K/mm3 (4.00-11.30)
--- NOTE | 2021-10-10 06:57 | NUR ---
SHIFT SUMMARY PT ALERT AND ORIENTED X4. HR SB 50'S MOST OF NIGHT. ON 2L OF OXYGEN. BP STABLE. RIGHT ARM SLING IN PLACE. ARM PAIN WHEN ARM IS MOVED, RELIEVED WITH TYLENOL OR WHEN ARM IS AT REST. ABLE TO TOLERATE TRANSFER TO BEDSIDE COMMODE WITH X1 ASSIST. IN BED RESTING WITH CALL ALARM AT SIDE. WILL CONTINUE TO MONITOR UNTIL REPORT GIVEN TO DAYSHIFT RN
--- NOTE | 2021-10-10 18:12 | NUR ---
SHIFT SUMMARY PT A&Ox4; CALM AND COOPERATIVE WITH CARE. APPEARS TO BE SLEEPING INTERMITTENTLY DURING SHIFT. UP TO BSC WITH 1 PERSON ASSIST. PER TELE 50-60 SB-SR WITH 1ST DEGREE BLOCK. DR LEDBETTER AT BEDSIDE THIS AM, NEW ORDERS ENTERED. BP SOFT THIS AFTERNOON, TRENDING UP THIS EVENING. PT HAS RIGHT ARM IN SLING AND CAST IN PLACE; WHEN ASKED PT STATES SHE HAS AN ELBOW FRACTURE, PT REPORTS PAIN TO ELBOW THIS AFTERNOON, MEDICATED PER EMAR. OTHER VSS. NO OTHER ACUTE CHANGES NOTED. WILL CONTINUE TO MONITOR UNTIL REPORT GIVEN TO ONCOMING RN.
[2021-10-11 04:40] LABS: BASOPHILS ABSOLUTE AUTO 0.05 K/mm3 (0.00-0.23); BASOPHILS PERCENT AUTO 1 % (0-2); EOSINOPHILS ABSOLUTE AUTO 0.24 K/mm3 (0.00-0.68); EOSINOPHILS PERCENT AUTO 2 % (0-6); Hematocrit 34.7 % (33.0-51.0); Hemoglobin 11.6 g/dL (11.5-16.0); IMMATURE GRAN ABSOLUTE AUTO 0.09 K/mm3 (0.00-0.10); IMMATURE GRAN PERCENT AUTO 1 % (0-1); LYMPHOCYTES ABSOLUTE AUTO 1.21 K/mm3 (0.84-5.20); LYMPHOCYTES PERCENT AUTO 11 % (21-46); MONOCYTES ABSOLUTE AUTO 1.08 K/mm3 (0.16-1.47); MONOCYTES PERCENT AUTO 10 % (4-13); Mean Corpuscular HGB 34.7 pg (26.0-34.0); Mean Corpuscular HGB Conc 33.4 g/dL (31.5-36.5); Mean Corpuscular Volume 104 fL (80-100); Mean Platelet Volume 9.6 fL (9.1-12.4); NEUTROPHILS ABSOLUTE AUTO 8.05 K/mm3 (1.96-9.15); NEUTROPHILS PERCENT AUTO 75 % (41-73); Platelet Count 287 K/mm3 (150-400); RDW Coefficient Variation 14.7 % (11.7-14.2); RDW Standard Deviation 55.9 fL (35.1-46.3); Red Blood Cell Count 3.34 M/mm3 (3.80-5.20); White Blood Cell Count 10.72 K/mm3 (4.00-11.30)
[2021-10-11 05:24] LABS: Alanine Aminotransfer (ALT/SGP 24 U/L (12-78); Albumin, Blood 1.6 g/dL (3.4-5.0); Albumin/Globulin Ratio 0.5 (0.8-1.8); Alk Phos 83 U/L (50-136); Anion Gap 3 mmol/L (6-16); Aspartate Aminotrans (AST/SGOT 22 U/L (12-37); Bilirubin, Total 0.3 mg/dL (0.1-1.0); Blood Urea Nitrogen 12 mg/dL (8-24); Bun/Creatinine Ratio 18.8 (12.0-20.0); CO2, Blood 32 mmol/L (21-32); Calcium, Blood 8.2 mg/dL (8.5-10.1); Chloride, Blood 105 mmol/L (98-108); Creatinine, Blood 0.64 mg/dL (0.40-1.00); Globulin, Blood 3.1 g/dL (2.2-4.0); Glomerular Filtration Rate >60 (60-); Glucose, Blood 79 mg/dL (70-99); Magnesium, Blood 1.6 mg/dL (1.6-2.4); Potassium, Blood 3.7 mmol/L (3.5-5.5); Sodium, Blood 140 mmol/L (136-145); Total Protein, Blood 4.7 g/dL (6.4-8.2)
--- NOTE | 2021-10-11 06:31 | NUR ---
SHIFT SUMMARY PT ALERT AND ORIENTED X4. HELD CARDIZEM, HR SB 40'S AND 50'S AND BP LOW. ON 2L O2, MAINTAINING SATS OVER 92%. C/O PAIN IN RIGHT ARM. X1 ASSIST TO BEDSIDE COMMODE. PLEASANT AND COOPERATIVE. IN BED SLEEPING WITH CALL ALARM AT SIDE
--- NOTE | 2021-10-11 18:44 | NUR ---
SHIFT SUMMARY PT A&Ox4; CALM AND COOPERATIVE WITH CARE. 1 PERSON ASSIST TO BSC AND CHAIR. PT REPORTS PAIN TO R ELBOW, MEDICATED WITH TYLENOL. PT REPORTS HEART BURN AND PRESSURE IN UPPER CHEST, NOTIFIED DR SALAMANCA, NEW ORDER FOR GI COCKTAIL, PT DENIES HEART BURN AND PRESSURE SINCE. PT DENIES CHEST PAIN, SOB, NAUSEA AND DIZZINESS. BP SOFT T/O SHIFT PT ASYMMPTOMATIC, HELD CARDIAC MEDICATION PER EMAR. OTHER VSS. NO OTHER ACUTE CHAGNES NOTED. WILL CONTINUE TO MONITOR UNTIL REPORT GIVEN TO ONCOMING RN.
--- NOTE | 2021-10-12 05:41 | NUR ---
RETAIL GREETER SUMMARY PT TRANSFERED TO ROOM 329 FROM U TONIGHT. PT AAOX4 AND PLEASANT. 1 ASSIST. HAS R ARM IN SLING. HR 50-60'S AND SBP 110'S, ABLE TO GIVE SCHEDULED CARDIZEM AT MIDNIGHT. DENIES PAIN, SOB, N/V. HAS RESTED WELL TONIGHT. VSS, WILL CONTINUE TO MONITOR.
[2021-10-12] MEDS ORDERED: DILT30 PO (10:38)
[2021-10-12 11:17] LABS: SARS-Cov-2 (COVID-19) PCR, MMC NEGATIVE (NEGATIVE)
--- NOTE | 2021-10-12 15:14 | NUR ---
DISCHARGE SUMMARY PATIENT DISCHARGED TO [facility]. PATIENT TRANSPORTED VIA WHEELCHAIR VAN. PATIENT ALERT AND ORIENTED THIS SHIFT. PATIENT CALM AND COOPERATIVE WITH CARE. PATIENT IS A 1 ASSIST TO BSC THIS SHIFT. POWERGLIDE REMOVED PRIOR TO DISCHARGE. PATIENT BELONGINGS WITH PATIENT UPON DISCHARGE.
== END 2021-10-12 13:40 | DRG 291 ==
LOC: ER 03:57 → PCU 06:48 → ERHOLD 06:48 → PCU 09:30 → MEDS 10-11 21:39
PROVIDERS: Internal Medicine; Student in an Organized Health Care Education/Training Program; ADMIT Internal Medicine
DX: I13.0 Hypertensive heart and chronic kidney disease with heart failure and stage 1 through stage 4 chronic kidney disease, or unspecified chronic kidney disease (principal); I50.33 Acute on chronic diastolic (congestive) heart failure; I48.20 Chronic atrial fibrillation, unspecified; J44.1 Chronic obstructive pulmonary disease with (acute) exacerbation; E87.6 Hypokalemia; E83.42 Hypomagnesemia; I27.20 Pulmonary hypertension, unspecified; I08.2 Rheumatic disorders of both aortic and tricuspid valves; Z23 Encounter for immunization; Z20.822 Contact with and (suspected) exposure to COVID-19; Z88.5 Allergy status to narcotic agent; Z88.8 Allergy status to other drugs, medicaments and biological substances; Z66 Do not resuscitate; M10.9 Gout, unspecified; E78.00 Pure hypercholesterolemia, unspecified; Z86.718 Personal history of other venous thrombosis and embolism; E03.9 Hypothyroidism, unspecified; G89.29 Other chronic pain; M54.9 Dorsalgia, unspecified; K21.9 Gastro-esophageal reflux disease without esophagitis; Z99.81 Dependence on supplemental oxygen; I48.91 Unspecified atrial fibrillation; Z79.01 Long term (current) use of anticoagulants; Z90.710 Acquired absence of both cervix and uterus; Z90.49 Acquired absence of other specified parts of digestive tract; Z90.721 Acquired absence of ovaries, unilateral; Z98.890 Other specified postprocedural states; Z79.899 Other long term (current) drug therapy; F17.210 Nicotine dependence, cigarettes, uncomplicated; N18.30 Chronic kidney disease, stage 3 unspecified
CPT/HCPCS: 36415; 71045; 80048; 80053; 83735; 84132; 84145; 85025; 85027; 93005; 93010; 93306; 94640; 94760; 96365; 96366; 96367; 96375; 97110; 97162; 97166; 97530; 99285-25; A9270; C1751; C9113; J1160; J3475; J7030; J7050; U0004

== ENCOUNTER → 2021-12-02 | Outpatient (CLI) | payer OTHER ==
[~2021-12-02] MED LIST changes: +DILT30 PO
[2021-12-02 18:20] LABS: Albumin, Blood 2.5 g/dL (3.4-5.0); Albumin/Globulin Ratio 0.8 (0.8-1.8); Bilirubin, Total 0.3 mg/dL (0.1-1.0); Bun/Creatinine Ratio 23.9 (12.0-20.0); Calcium, Blood 8.7 mg/dL (8.5-10.1); Creatinine, Blood 1.09 mg/dL (0.40-1.00); Globulin, Blood 3.3 g/dL (2.2-4.0); Potassium, Blood 4.2 mmol/L (3.5-5.5); Total Protein, Blood 5.8 g/dL (6.4-8.2)
== END | disposition home or self-care (01) ==
LOC: LAB SHORT 17:04
PROVIDERS: Physician Assistant
DX: R60.0 Localized edema (principal)
CPT/HCPCS: 80053; 83880

== ENCOUNTER 2021-12-05 21:29 | Inpatient (IN) | payer OTHER ==
[~2021-12-05] VITALS: Ht 160 cm; Wt 77.1 kg
[~2021-12-05 21:29] MED LIST changes: +ZOCOR20 MG PO
[2021-12-06 00:37] LABS: BASOPHILS ABSOLUTE AUTO 0.07 K/mm3 (0.00-0.23); BASOPHILS PERCENT AUTO 1 % (0-2); EOSINOPHILS ABSOLUTE AUTO 0.12 K/mm3 (0.00-0.68); EOSINOPHILS PERCENT AUTO 1 % (0-6); Hematocrit 38.7 % (33.0-51.0); Hemoglobin 12.6 g/dL (11.5-16.0); IMMATURE GRAN ABSOLUTE AUTO 0.03 K/mm3 (0.00-0.10); IMMATURE GRAN PERCENT AUTO 0 % (0-1); LYMPHOCYTES ABSOLUTE AUTO 1.19 K/mm3 (0.84-5.20); LYMPHOCYTES PERCENT AUTO 11 % (21-46); MONOCYTES ABSOLUTE AUTO 0.87 K/mm3 (0.16-1.47); MONOCYTES PERCENT AUTO 8 % (4-13); Mean Corpuscular HGB 34.1 pg (26.0-34.0); Mean Corpuscular HGB Conc 32.6 g/dL (31.5-36.5); Mean Corpuscular Volume 105 fL (80-100); Mean Platelet Volume 9.8 fL (9.1-12.4); NEUTROPHILS ABSOLUTE AUTO 8.53 K/mm3 (1.96-9.15); NEUTROPHILS PERCENT AUTO 79 % (41-73); Platelet Count 271 K/mm3 (150-400); RDW Coefficient Variation 15.1 % (11.7-14.2); RDW Standard Deviation 58.4 fL (35.1-46.3); White Blood Cell Count 10.81 K/mm3 (4.00-11.30)
[2021-12-06 00:53] LABS: Albumin, Blood 2.4 g/dL (3.4-5.0); Albumin/Globulin Ratio 0.6 (0.8-1.8); Bilirubin, Total 0.3 mg/dL (0.1-1.0); Calcium, Blood 8.8 mg/dL (8.5-10.1); Creatinine, Blood 1.04 mg/dL (0.40-1.00); Globulin, Blood 3.8 g/dL (2.2-4.0); Total Protein, Blood 6.2 g/dL (6.4-8.2)
[2021-12-06 01:59] LABS: Influenza A, PCR NEGATIVE (NEGATIVE); Influenza B, PCR NEGATIVE (NEGATIVE); Resp Syncytial Virus, PCR NEGATIVE (NEGATIVE); SARS-Cov-2 (COVID-19) PCR, MMC NEGATIVE (NEGATIVE)
--- NOTE | 2021-12-06 04:35 | NUR ---
SHIFT SUMMARY: RECEIVED PT. FROM ER ACCOMPANIED BY SUBASSEMBLY ASSEMBLER. AOX4, RIGHT ARM WITH CAST & SLING RELATED TO INJURY ON 10/29/21.PT. ADMITTED FROM HOME RELATED TO FALL WHICH RESULTED TO LEFT HIP FRACTURE. ON NPO SINCE MIDNIGHT FOR POSSIBLE SURGERY TODAY.3+ NONPITTING EDEMA TO BLE WITH VISIBLE LEG VEINS WHICH PER DAUGHTER " DOCTOR'S DID NOT WORRY TOO MUCH ABOUT IT". SCD's ON HOLD FOR CLARIFICATION OF ORDER RELATED TO RISK OF CLOT TO TRAVEL.LEFT AC IV ACCESS INFUSING WELL.PT. VOIDED 700 ML OF CLEAR PORFIRIO URINE.NO NEW UNUSUALITIES NOTED. WILL CONTINUE TO MONITOR.
--- NOTE | 2021-12-06 16:46 | NUR ---
PT. VERY SLEEPY ALL DAY. DECLINED FOOD, WANTING TO DRINK PEPSI ONLY. STATES NO NEED FOR PAIN MEDICATAION, DENIES PAIN. USING BED BASS TO VOID. LOPRESSOR HELD THIS A.M.AND AT THIS TIME. SBP 96 AND HR 65-69. AWAKENS EASILY , STATES "IM JUST SO TIRED". CMS INTACT TO BILAT. LE'S. NOTED SWELLING AND REDNESS BILATERAL ANKLE AREA. PATIENT STATES THAT IT IS "NORMAL".
--- NOTE | 2021-12-06 20:02 | NUR ---
IODINE ALLERGY: PT REP HAVING A PREVIOUS REACTION TO IODINE. PER PT, REACTION WAS "A BURNING HOT SENSATION ALL OVER" DR ANTHONY NOTIFIED OF REACTION. CLARIFIED NEED FOR IV CONTRACT W/DR, AND ALLERGY PROTOCOL W/IMAGING. PT EDUCATED ON NEED FOR IMAGING W/CONTRAST BEFORE PLANNED SURGERY. PT AGREEABLE TO BE PREMEDICATED AND PROCEED W/CT W/IODINE CONTRAST. DR ANTHONY UPDATED.
--- NOTE | 2021-12-06 21:43 | NUR ---
PT. STATED ALLERGIC TO IODINE WITH REACTION SUCH BURNING SENSATION TO HER SKIN. CN TALKED TO PT. RE: DR. ANTHONY'S PREMEDICATION SUGGESTION, PT. VERBALIZED UNDERSTANDING & ACCEPT ORDERS FOR PREMEDICATION WITH PEPCID, BENADRYL & SOLUMEDROL BEFORE CT PROCEDURE.
--- NOTE | 2021-12-07 05:56 | NUR ---
SHIFT SUMMARY: PATIENT AOX4, HAD CT OF LEFT HIP/LEG, LAST NIGHT WHICH RESULTED WITH CELLULITIS, COMPLAINTS OF PAIN COVERED WITH FENTANYL, SEE EMAR. NPO SINCE MIDNIGHT FOR POSSIBLE SURGERY TODAY. SLEPT WELL LAST NIGHT. VOIDING WELL THROUGH BEDPAN WITHOUT PROBLEMS. NO NEW UNUSUALITIES NOTED.
--- NOTE | 2021-12-07 11:21 | NUR ---
pt. downstairs via bed to surgery.
--- NOTE | 2021-12-07 11:42 | NUR ---
History, Chart, Medications and Allergies reviewed before start of procedure. Lungs WITH EXP WHEEZES T/O to Auscultation. Pre-Op teaching done. Pt verbalizes understanding. Patient confirms NPO status and agrees with scheduled surgery.
--- NOTE | 2021-12-07 12:30 | NUR ---
PT.BACK TO ROOM VIA BED.
--- NOTE | 2021-12-07 14:52 | NUR ---
PT. MEDICATED FOR C/O 07/06 PAIN WITH FENTANYL. VERBALIZE RELIEF. LLE SLIGHTLY ELEVATED AND DRSG/MINE WRAP. INTACT OVER LLE INCISION. GOOD PP LLE, CMS+. REQUESTING BED PAIN AND PATIENT HAD ONE VERY LARGE FORMED STOOL AND THEN AGAIN A VERY LARGE AMOUN LOOSE STOOL WTIH LARGE LUMPS.
--- NOTE | 2021-12-08 04:26 | NUR ---
SHIFT SUMMARY: PATIENT AOX4, LEFT LOWER LEG WITH ACEWRAP RELATED TO I & D DONE YESTERDAY. VOIDING WELL USING A BEDPAN. IV ANTIBIOTIC TOLERATED WELL.SCD TO RLE. COMPLAINTS OF PAIN TO LEFT LEG MEDICATED WITH FENTANYL 25 MCG X 1. PT. STATED SHE DOES NOT WANT TO RECEIVE LOVENOX ANYMORE, REQUESTING PO BLOOD THINNER. PT. SLEPT WELL LAST NIGHT. NO NEW UNUSUALITIES NOTED.
[2021-12-08 04:33] LABS: BASOPHILS ABSOLUTE AUTO 0.05 K/mm3 (0.00-0.23); BASOPHILS PERCENT AUTO 1 % (0-2); EOSINOPHILS PERCENT AUTO 2 % (0-6); Hematocrit 35.1 % (33.0-51.0); Hemoglobin 11.4 g/dL (11.5-16.0); IMMATURE GRAN ABSOLUTE AUTO 0.02 K/mm3 (0.00-0.10); IMMATURE GRAN PERCENT AUTO 0 % (0-1); LYMPHOCYTES ABSOLUTE AUTO 1.67 K/mm3 (0.84-5.20); LYMPHOCYTES PERCENT AUTO 25 % (21-46); MONOCYTES ABSOLUTE AUTO 0.85 K/mm3 (0.16-1.47); MONOCYTES PERCENT AUTO 13 % (4-13); Mean Corpuscular HGB 34.4 pg (26.0-34.0); Mean Corpuscular HGB Conc 32.5 g/dL (31.5-36.5); Mean Corpuscular Volume 106 fL (80-100); NEUTROPHILS ABSOLUTE AUTO 4.12 K/mm3 (1.96-9.15); NEUTROPHILS PERCENT AUTO 61 % (41-73); Platelet Count 212 K/mm3 (150-400); RDW Coefficient Variation 15.2 % (11.7-14.2); RDW Standard Deviation 58.7 fL (35.1-46.3); Red Blood Cell Count 3.31 M/mm3 (3.80-5.20); White Blood Cell Count 6.81 K/mm3 (4.00-11.30)
[2021-12-08 04:57] LABS: Anion Gap 2 mmol/L (6-16); Blood Urea Nitrogen 17 mg/dL (8-24); Bun/Creatinine Ratio 19.9 (12.0-20.0); CO2, Blood 35 mmol/L (21-32); Calcium, Blood 7.8 mg/dL (8.5-10.1); Chloride, Blood 103 mmol/L (98-108); Creatinine, Blood 0.86 mg/dL (0.40-1.00); Glomerular Filtration Rate >60 (60-); Glucose, Blood 116 mg/dL (70-99); Potassium, Blood 3.3 mmol/L (3.5-5.5); Sodium, Blood 140 mmol/L (136-145)
--- NOTE | 2021-12-08 06:51 | NUR ---
Cardizem for 2100 on 12/07/21 was held related to systolic b/p on 99 & heart rate fluctuating from low 50s to 70's.
--- NOTE | 2021-12-08 19:01 | NUR ---
SHIFT SUMMARY PATIENT ALERT AND ORIENTED, SOMEWHAT SLEEPY THROUGHOUT SHIFT. POD 1 LLE I&D OF CELLULITIS. DRESSING CHANGED THIS SHIFT BY ORTHO. Jason BEVERLEY HIP REPAIR OF LEFT HIP FRACTURE PLANNED FOR AFTERNOON OF 12/09/21. NPO AFTER MIDNIGHT. TOLERATING REGULAR DIET AND FLUIDS. ROUTINE IV ABX. POWERGLIDE PLACED THIS SHIFT TO E. CALLS APPROPRIATELY AND USES BEDPAN. MEDICATED FOR PAIN PRN. REPORT GIVEN TO RN DELIVERY RN.
--- NOTE | 2021-12-09 05:43 | NUR ---
DENIED PAIN THROUGH NIGHT. DRESSING CLEAN DRY AND INTACT TO LEFT HAND, CAP REFILL PRESENT, ABLE TO WIGGLE FINGERS. SAFETY MAINTAINED.
--- NOTE | 2021-12-09 05:50 | NUR ---
MEDICATED WITH FENTANYL 50MCG X'S 1 DUE TO LEFT FOOT PAIN, EFFECTIVE RELIEF. SLEPT WELL THROUGH NIGHT. DRESSING TO LEFT FOOT CLEAN DRY AND INTACT. NPO AFTER 12AM.
[2021-12-09 08:31] LABS: Hematocrit 35.5 % (33.0-51.0); Hemoglobin 11.3 g/dL (11.5-16.0); Mean Corpuscular HGB 33.8 pg (26.0-34.0); Mean Corpuscular HGB Conc 31.8 g/dL (31.5-36.5); Mean Corpuscular Volume 106 fL (80-100); Mean Platelet Volume 9.8 fL (9.1-12.4); Platelet Count 220 K/mm3 (150-400); RDW Coefficient Variation 14.8 % (11.7-14.2); RDW Standard Deviation 58.3 fL (35.1-46.3); Red Blood Cell Count 3.34 M/mm3 (3.80-5.20); White Blood Cell Count 6.42 K/mm3 (4.00-11.30)
[2021-12-09 08:53] LABS: Anion Gap 1 mmol/L (6-16); Blood Urea Nitrogen 13 mg/dL (8-24); CO2, Blood 33 mmol/L (21-32); Calcium, Blood 8.5 mg/dL (8.5-10.1); Chloride, Blood 104 mmol/L (98-108); Creatinine, Blood 0.77 mg/dL (0.40-1.00); Glomerular Filtration Rate >60 (60-); Glucose, Blood 85 mg/dL (70-99); Potassium, Blood 4.1 mmol/L (3.5-5.5); Sodium, Blood 138 mmol/L (136-145)
[2021-12-09 16:43] LABS: Vancomycin, Trough 9.1 ug/mL (5.0-10.0)
--- NOTE | 2021-12-09 18:05 | NUR ---
SHIFT SUMMARY PT IS WAITING FOR SURGERY, POSSIBLY PLANNED FOR TOMORROW. PAIN MANAGED WITH PO PAIN MEDICATION. PT HAS BEEN USING THE BEDPAN TO VOID. SHE IS ABLE TO REPOSITION HERSELF WITH MINIMAL ASSISTANCE. WILL MONITOR UNTIL REPORT TO AVNI HOLLIDAY.
--- NOTE | 2021-12-10 05:47 | NUR ---
ASBESTOS COVERER SUMMARY NO ACUTE CHANGES THIS SHIFT. PT AAOX4 AND PLEASANT. DRESSING TO LLE C/D/I. SOME SWELLING NOTED TO BLE'S. PT HAS BEEN NPO SINCE MIDNIGHT IN PREP FOR HIP PROCEDURE LATER TODAY. VSS, WILL CONTINUE TO MONITOR.
--- NOTE | 2021-12-10 16:23 | NUR ---
FLUID RATE DECREASED TO 50ML/HR AT 1400 PER NEW ORDER.
--- NOTE | 2021-12-10 18:10 | NUR ---
SUMMARY: NO ACUTE CHANGE TODAY. VSS, A/O. DRESSING TO L BROCK CHANGED TODAY BY DR. ANTHONY. PT HAS GOOD SENSATION TO L LEG. PT REPOSITIONED PRN FOR COMFORT AND HELPED ONTO BEDPAN. MEDICATED FOR PAIN PER EMAR. ANTIBIOTICS INFUSED. PLAN IS FOR POSSIBLE SURGERY TOMORROW, NPO AT 0000. WILL CTM AND REPORT TO AVNI HOLLIDAY.
[2021-12-11 04:29] LABS: Influenza A, PCR NEGATIVE (NEGATIVE); Influenza B, PCR NEGATIVE (NEGATIVE); Resp Syncytial Virus, PCR NEGATIVE (NEGATIVE); SARS-Cov-2 (COVID-19) PCR, MMC NEGATIVE (NEGATIVE)
--- NOTE | 2021-12-11 04:51 | NUR ---
BIOMETRICS CONSULTANT SUMMARY NO ACUTE CHANGES THIS SHIFT. PT AAOX4 AND PLEASANT. PLAN FOR L HIP SURGERY LATER THIS MORNING AT 0830. COVID SWAB COLLECTED THIS AM WHICH WAS NEGATIVE. VSS, WILL CONTINUE TO MONITOR.
[2021-12-11 05:58] LABS: Anion Gap 4 mmol/L (6-16); Blood Urea Nitrogen 11 mg/dL (8-24); Bun/Creatinine Ratio 14.4 (12.0-20.0); CO2, Blood 30 mmol/L (21-32); Calcium, Blood 8.4 mg/dL (8.5-10.1); Chloride, Blood 105 mmol/L (98-108); Creatinine, Blood 0.77 mg/dL (0.40-1.00); Glomerular Filtration Rate >60 (60-); Glucose, Blood 89 mg/dL (70-99); Potassium, Blood 3.9 mmol/L (3.5-5.5); Sodium, Blood 139 mmol/L (136-145)
[2021-12-11 06:00] LABS: Hemoglobin 11.2 g/dL (11.5-16.0); Mean Corpuscular HGB 34.1 pg (26.0-34.0); Mean Corpuscular Volume 107 fL (80-100); Platelet Count 219 K/mm3 (150-400); RDW Coefficient Variation 14.6 % (11.7-14.2); Red Blood Cell Count 3.28 M/mm3 (3.80-5.20); White Blood Cell Count 6.01 K/mm3 (4.00-11.30)
--- NOTE | 2021-12-11 15:44 | NUR ---
SHIFT SUMMARY PT A&OX4, VSS/3LNC (BASELINE NOC), S/P L BEVERLEY HIP, SURGICAL BANDAGE CDI, WBAT, PHYSICAL THERAPY EVAL'D - PT STAND PIVOT 2 PP MAX - UP TO CHAIR WITH BLE ELEVATED. RLE WOUND VAC WNL. POWERGLIDE LUE INFUSING ABX/IVF AND D5-1/2 PER EMAR. YOSVANY PO. AWAITING POST-OP VOID. DENIES NEED FOR PAIN MEDICATION AT THIS TIME. WILL REPORT TO ONCOMING NOC MG.
--- NOTE | 2021-12-12 04:06 | NUR ---
SHIFT SUMMARY: PT. AOX4, LEFT HIP S/P REPAIR WITH AQUACEL C/D/I. PT. DENIED PAIN SINCE THE BEGINNING OF THE SHIFT.IV ANTIBIOTIC TOLERATED WELL. LEFT UPPER ARM POWERGLIDE INFUSING WELL.PT. VOIDED 600 ML AT THE BEGINNING OF THE SHIFT. RIGHT ARM SLING ON.NO COMPLAINTS THROUGHOUT THE NIGHT. OCCASIONAL NON PRODUCTIVE COUGH BUT NON LABORED BREATHING NOTED, O2 SAT ON THE LOW TO HIGH 90'S WITH 3L O2 VIA NC.LEFT LOWER LEG S/P I & D WITH DRESSING ON C/D/I.WILL CONTINUE TO MONITOR.
[2021-12-12 05:31] LABS: BASOPHILS ABSOLUTE AUTO 0.04 K/mm3 (0.00-0.23); BASOPHILS PERCENT AUTO 0 % (0-2); EOSINOPHILS ABSOLUTE AUTO 0.12 K/mm3 (0.00-0.68); EOSINOPHILS PERCENT AUTO 1 % (0-6); Hematocrit 31.2 % (33.0-51.0); Hemoglobin 10.2 g/dL (11.5-16.0); IMMATURE GRAN ABSOLUTE AUTO 0.04 K/mm3 (0.00-0.10); IMMATURE GRAN PERCENT AUTO 0 % (0-1); LYMPHOCYTES ABSOLUTE AUTO 1.19 K/mm3 (0.84-5.20); LYMPHOCYTES PERCENT AUTO 13 % (21-46); MONOCYTES ABSOLUTE AUTO 1.33 K/mm3 (0.16-1.47); MONOCYTES PERCENT AUTO 14 % (4-13); Mean Corpuscular HGB 34.8 pg (26.0-34.0); Mean Corpuscular HGB Conc 32.7 g/dL (31.5-36.5); Mean Corpuscular Volume 107 fL (80-100); Mean Platelet Volume 10.1 fL (9.1-12.4); NEUTROPHILS ABSOLUTE AUTO 6.79 K/mm3 (1.96-9.15); NEUTROPHILS PERCENT AUTO 71 % (41-73); Platelet Count 206 K/mm3 (150-400); RDW Coefficient Variation 14.7 % (11.7-14.2); RDW Standard Deviation 58.1 fL (35.1-46.3); Red Blood Cell Count 2.93 M/mm3 (3.80-5.20); White Blood Cell Count 9.51 K/mm3 (4.00-11.30)
[2021-12-12 06:07] LABS: Bun/Creatinine Ratio 11.9 (12.0-20.0); Calcium, Blood 8.1 mg/dL (8.5-10.1); Creatinine, Blood 1.01 mg/dL (0.40-1.00); Potassium, Blood 4.7 mmol/L (3.5-5.5)
--- NOTE | 2021-12-12 16:48 | NUR ---
SHIFT SUMMARY PT A&OX4, VSS/3LNC-BIOX ON-SATS >92%. POD1 L BEVERLEY HIP/AQUACEL CDI/WBAT; LLE I&D & WOUND VAC PLACEMENT-WNL; RUE SLING ON/NWB/ELEVATED ON PILLOW. PT IS A HEAVY 2 PP MAX TRANSFER TO CHAIR/BED/BSC; UP TO CHAIR FOR AFTERNOON/BLE ELEVATED. POWERGLIDE LUE, INFUSING ABX/NS @ 50 MLS/HR AND D5-1/2NS @ 80 MLS/HR; BOWEL CARE PER EMAR. YOSVANY PO. VOIDING WELL. PAIN MANAGED WITH 5 NORCO AND 25 MCGS FENT. WILL REPORT TO ONCOMING NOC MG.
[2021-12-12 17:25] LABS: Vancomycin, Trough 20.8 ug/mL (5.0-10.0)
[2021-12-13 05:50] LABS: Albumin, Blood 1.7 g/dL (3.4-5.0); Anion Gap 2 mmol/L (6-16); Blood Urea Nitrogen 11 mg/dL (8-24); Bun/Creatinine Ratio 16.4 (12.0-20.0); CO2, Blood 28 mmol/L (21-32); Calcium, Blood 8.3 mg/dL (8.5-10.1); Chloride, Blood 105 mmol/L (98-108); Creatinine, Blood 0.67 mg/dL (0.40-1.00); Glomerular Filtration Rate >60 (60-); Glucose, Blood 86 mg/dL (70-99); Phosphorus, Blood 2.4 mg/dL (2.5-4.9); Potassium, Blood 5.6 mmol/L (3.5-5.5); Sodium, Blood 135 mmol/L (136-145)
--- NOTE | 2021-12-13 05:52 | NUR ---
SHIFT SUMMARY: POD2 LEFT BEVERLEY HIP WITH DRESSING ON C/D/I. LEFT LOWER LEG (BROCK) S/P I & D RELATED TO CELLULITIS CONNECTED TO WOUND VAC WITHOUT PROBLEMS. BLE NONPITTING EDEMA, RIGHT ARM WITH SLING ON RELATED TO PREVIOUS INJURY.SACRAL AREA SKIN REDNESS & S/P FUNGAL INFECTION PER PT. WITH DRESSING ON. PT. REQUESTED FOR PAIN MEDICINE TWICE TRHOUGHOUT THE SHIFT, SLEPT WELL LAST NIGHT. LEFT UPPER ARM POWERGLIDE WITH BACKFLOW & INFUSING WELL.USED BEDPAN FOR VOIDING. NO NEW UNUSUALITIES NOTED, WILL CONTINUE TO MONITOR.
--- NOTE | 2021-12-13 12:43 | NUR ---
12/13/21 1243 Mirian Garces VERIFICATIONS: EDIT CHART.
[2021-12-14 05:43] LABS: Hematocrit 28.7 % (33.0-51.0); Hemoglobin 9.2 g/dL (11.5-16.0); Mean Corpuscular HGB 33.9 pg (26.0-34.0); Mean Corpuscular HGB Conc 32.1 g/dL (31.5-36.5); Mean Corpuscular Volume 106 fL (80-100); Mean Platelet Volume 10.4 fL (9.1-12.4); Platelet Count 209 K/mm3 (150-400); RDW Coefficient Variation 14.5 % (11.7-14.2); Red Blood Cell Count 2.71 M/mm3 (3.80-5.20); White Blood Cell Count 7.66 K/mm3 (4.00-11.30)
[2021-12-14 06:02] LABS: Albumin, Blood 1.7 g/dL (3.4-5.0); Anion Gap 4 mmol/L (6-16); Blood Urea Nitrogen 14 mg/dL (8-24); Bun/Creatinine Ratio 16.7 (12.0-20.0); CO2, Blood 28 mmol/L (21-32); Calcium, Blood 8.5 mg/dL (8.5-10.1); Chloride, Blood 103 mmol/L (98-108); Creatinine, Blood 0.84 mg/dL (0.40-1.00); Glomerular Filtration Rate >60 (60-); Glucose, Blood 84 mg/dL (70-99); Phosphorus, Blood 3.2 mg/dL (2.5-4.9); Potassium, Blood 4.7 mmol/L (3.5-5.5); Sodium, Blood 135 mmol/L (136-145)
--- NOTE | 2021-12-14 12:30 | NUR ---
ROOM AIR TRIAL DESATS TO 84%. 2L NC APPLIED & O2 SATS INCREASE TO 94% QUICKLY. ENCOURAGED TCDB
--- NOTE | 2021-12-14 18:16 | NUR ---
SHIFT SUMMARY PT HAS DONE WELL TODAY. UP TO BSC THEN CHAIR w/ THERAPY. ABLE TO TOLERATE UP IN CHAIR UNTIL EARLY AFTERNOON THEN BACK TO BED. PLEASANT & COOPERATIVE.
--- NOTE | 2021-12-15 04:26 | NUR ---
SHIFT SUMMARY: PATIENT AOX4, COMPLAINTS OF LET HIP PAIN MEDICATED, SEE EMAR. LEFT BROCK S/P I & D CONNECTED TO WOUND VAC WITHOUT PROBLEMS. BILATERAL HEELS & SACRAL AREA WITH MEPILEX ON RELATED TO REDNESS. PT. SLEPT WELL, O2 SAT ON HIGH 90S WITH O2 3L VIA NC, WILL TRY TO WEAN OFF WHEN AWAKE. VOIDING WELL VIA THE BEDPAN.NO NEW ISSUES NOTED, WILL CONTINUE TO MONITOR.
--- NOTE | 2021-12-15 15:23 | NUR ---
SHIFT SUMMARY PATIENT ALERT AND ORIENTED. TOLERATING REGULAR DIET AND FLUIDS. 2 PEROSN MOD ASSIST WITH FWW AND GAIT BELT TO TRANSFER TO COMMODE AND RECLINER. PAIN CONTROLLED WITH PO PAIN MEDS. AQUACEL TO LEFT HIP AND WOUND VAC DRESSING TO LLE BOTH CHANGED THIS SHIFT. VOIDING WELL, CONTINUE TO GIVE BOWEL CARE. WAITING FOR SNF PLACEMENT. WILL REPORT TO RN ASSUMING CARE AT THIS TIME.
--- NOTE | 2021-12-15 19:27 | NUR ---
SUMMARY SINCE ASSUMING CARE AROUND 1529, PT RESTED IN CHAIR, HAD BM & VOIDED ON BSC, ASSISTED BACK TO BED & MEDICATED FOR PAIN. ALERT, ORIENTED, PLEASANT.
--- NOTE | 2021-12-16 05:46 | NUR ---
SHIFT SUMMARY: PATIENT AOX4, LEFT ARM POWERGLIDE PATENT/INFUSING WELL.LEFT HIP DRESING C/D/I, LEFT BROCK S/P I&D CONNECTED TO WOUND VAC NO PROBLEMS NOTED.BILATERAL HEELS WITH MEPILEX ON, SACRAL EXCORIATION WITH NEW MEPILEX APPLIED. PATIENT COMPLAINTS OF ITCHINESS TO HER PRIVATE AREA, REDNESS & WHITISH DISCHARGES NOTED, WILL REPORT TO DAYSHIFT RN FOR MD MANAGEMENT ORDER. OCCASIONAL NON PRODUCTIVE COUGH WITH DIMINISHED BREATH SOUNDS NOTED.BLE EDEMA. USES BEDPAN AT NIGHT, VOIDING WELL CLEAR PORFIRIO URINE.COMPLAINTS OF L HIP PAIN MEDICATED, SEE EMAR.PT. SLEPT WELL LAST NIGHT, NO NEW COMPLAINTS. WILL CONTINUE TO MONITOR.
--- NOTE | 2021-12-16 17:23 | NUR ---
PT 2 PERSON MODERATE ASSIST TRANSFER FROM CHAIR TO COMMODE. PT REPORTS PAIN TO RIGHT ARM, STATES LEFT HIP IS JUST A MILD ACHE. YOSVANY PO FOOD AND FLUIDS. PT USING IS HOURLY WHEN REMINDED. OXYGEN REMAINS AT 2 LITERS, BIOX DECREASES TO 86-88% WHEN OXYGEN DECREASED TO 1 LITER
[2021-12-17 04:47] LABS: Albumin, Blood 1.6 g/dL (3.4-5.0); Anion Gap 4 mmol/L (6-16); Blood Urea Nitrogen 18 mg/dL (8-24); Bun/Creatinine Ratio 18.3 (12.0-20.0); CO2, Blood 30 mmol/L (21-32); Calcium, Blood 8.5 mg/dL (8.5-10.1); Chloride, Blood 104 mmol/L (98-108); Creatinine, Blood 0.98 mg/dL (0.40-1.00); Glomerular Filtration Rate 55 (60-); Glucose, Blood 84 mg/dL (70-99); Phosphorus, Blood 3.4 mg/dL (2.5-4.9); Potassium, Blood 4.4 mmol/L (3.5-5.5); Sodium, Blood 138 mmol/L (136-145)
[2021-12-17] MEDS ORDERED: BUME1 PO (10:39)
[2021-12-17] MEDS ORDERED: FLUT1DIS5 INH (11:25)
--- NOTE | 2021-12-17 16:32 | NUR ---
3341 DR ANTHONY IN AND COMPLETED LEFT BROCK WOUND VAC DRESSING CHANGE
--- NOTE | 2021-12-17 18:15 | NUR ---
PT SITTING IN CHAIR MUCH OF THIS SHIFT. PT IS 2 PERSON ASSIST TRANSFER WITH WALKER AND GAIT BELT, PT EXPRESSES FEAR OF FALLING WHEN BEING ASSISTED OOB. PT MEDICATED FOR PAIN WITH PO MEDS X3 AND REPORTS ADEQUATE PAIN CONTROL. PT REPORTS RIGHT ARM IS CAUSING HER THE MOST PAIN AND THAT LEFT HIP AND LEFT BROCK HAVE MINIMAL PAIN. WOUND VAC MAINTAINING SUCTION TO LEFT BROCK, NO VISIBLE DRAINAGE IN WOUND VAC
--- NOTE | 2021-12-18 05:45 | NUR ---
ALERT AND ORIENTED. NO ACUTE DISTRESS NOTED. MEDICATED FOR PAIN MANAGEMENT DUE TO C/O RIGHT SHOULDER PAIN, EFFECTIVE RELIEF. WOUND VAC INTACT TO LLE. BLE'S ELEVATED ON PILLOWS, +1 EDEMA. RESPIRATIONS EVEN AND UNLABORED, CONTINUOUS PULSE OX IN PLACE. SAFETY MAINTAINED, CALL CODY IN REACH.
--- NOTE | 2021-12-18 17:17 | NUR ---
SHIFT SUMMARY PT IS WAITING FOR SNF PLACEMENT. PT IS A 2 PERSON MODERATE ASSIST FOR TRANSFERS, USING THE BSC. PAIN MANAGED WITH PO PAIN MEDICATION. PT HAS HAD A DECREASED APPETITE AND HAS BEEN ENCOURAGED TO EAT PROTEIN RICH FOOD. PT HAS REDDENED/EXCORIATED AREA TO BUTTOCKS. ALLYVEN DRESSING PLACED ON COCCYX. PT HAS BEEN OOB TO THE CHAIR MUCH OF THE DAY. VSS. WILL MONITOR UNTIL REPORT TO NOC RN.
--- NOTE | 2021-12-19 05:56 | NUR ---
MEDICATED FOR PAIN MANAGEMENT, EFFECTIVE RELIEF. NO ACUTE DISTRESS NOTED, RESPIRATIONS EVEN AND UNLABORED. WOUND VAC ON AND WORKING PROPERLY. BLE'S ELEVATED ON ON PILLOWS, 2+ EDEMA TO BLE'S, PEDAL PULSE PRESENT. TURNED AND REPOSITONED THROUGH NIGHT WITH PILLOWS. NYSTATIN CREAM APPLIED TO REDENED AREA, MEPILEX BORDER INTACT TO COCCYX. SAFETY MAINTAINED, CALL [facility] IN REACH.
[2021-12-19 06:07] LABS: Albumin, Blood 1.7 g/dL (3.4-5.0); Anion Gap 4 mmol/L (6-16); Blood Urea Nitrogen 24 mg/dL (8-24); Bun/Creatinine Ratio 23.3 (12.0-20.0); CO2, Blood 30 mmol/L (21-32); Calcium, Blood 8.9 mg/dL (8.5-10.1); Chloride, Blood 104 mmol/L (98-108); Creatinine, Blood 1.03 mg/dL (0.40-1.00); Glomerular Filtration Rate 52 (60-); Glucose, Blood 81 mg/dL (70-99); Phosphorus, Blood 3.6 mg/dL (2.5-4.9); Sodium, Blood 138 mmol/L (136-145)
[2021-12-19 13:37] LABS: Hematocrit 28.7 % (33.0-51.0); Hemoglobin 9.2 g/dL (11.5-16.0)
--- NOTE | 2021-12-19 17:09 | NUR ---
SHIFT SUMMARY PT IS WAITING FOR SNF PLACEMENT. SHE IS A 2 ASSIST FOR TRANSFERS. PAIN MANAGED WITH [facility] BUT HAS BEEN IMPROVED AND PT HAS DECLINED PAIN MEDICATION TODAY. DIETARY CONSULT FOR WOUND HEALING/LOW ALBUMIN. PT WAS ALSO EDUCATED REGARDING REDUCING SODIUM INTAKE TO HELP REDUCE FLUID RETENTION. PT HAS REDDENED AREA TO BUTTOCKS, PT EDUCATED ABOUT PROPER NUTRITION AND MOVEMENT. REDDENED AREA IS BLANCHING. WILL MONITOR UNTIL REPORT TO NOC RN.
--- NOTE | 2021-12-20 07:15 | NUR ---
SHIFT SUMMARY NO ACUTE CHANGES OVERNIGHT. VSS, MILD HYPOTENSIVE THIS AM BUT ASYMPTOMATIC. STILL ON 3L N/C (BASELINE). PT REPORTS SOME MILD PAIN BUT DIDN'T REQUEST FOR ANY PAIN MEDS OVERNIGHT. REDENNED BUTTOCKS APPLIED MEPLEX. LLE WITH WOUND VACC. TOLERATING PO INTAKE. DENIES N/V. CALL [facility] WITHIN REACH. REPORT GIVEN TO AM NURSE.
--- NOTE | 2021-12-20 15:58 | NUR ---
PT AWAITING SNF BED. SHE HAD PAIN IN R SHOULDER/ L HIP MANAGED WITH [facility]. PT HAS REDDENED AREA ON BUTTOCKS/COCCYX. NEW MEPILEX APPLIED. NEW HEEL PROTECTORS APPLIED. PROVIDER REMOVED AND D/C WOUND VAC ON LLE AND PLACED DRESSING OVER WOUND. PT AMBULATED FROM BED TO CHAIR/BSC WITH 2PA WITH FWW/GAIT. PT IN GOOD MOOD, BUT HESISTANT TO ATTEMPT MORE ACTIVITY. PT WALKED IN RM WITH PT WITH FWW/GAIT. PT WAS IN CHAIR FOR 6 HOURS. PT HAD 1 BM LOOSE. SAFETY MAINTAINED. CALL [facility] WITHIN REACH.
--- NOTE | 2021-12-21 06:17 | NUR ---
SUMMARY PT COMPLAINED OF ONGOING ITCHING IN GLUTEAL CLEAT AND GROIN. NYSTATIN CREAM APPLIED WITH LITTLE RELIEF. PROVIDER CALLED AND ORDERED BENEDRYL. PT TX PER EMAR WITH ITCHING RELIEF. PT HAD NO OTHER ISSUES NOTED. PT DRESSING ON HIP CHANGED AND CLEANED. DRESSING ON LLE C/D/I. CALL LIGH IN REACH AND PT IN NO DISTRESS.
--- NOTE | 2021-12-21 18:29 | NUR ---
SHIFT SUMMARY PT A&OX4, VSS/3LNC/BIOX ON - ENC PT T/O SHIFT TO TCDB, TO WORK ON GETTING BACK TO RA DURING DAY BASELINE. POD11 L BEVERLEY HIP, AQUACEL CDI, L BROCK MEDIPORT CDI. PAIN TREATED WITH 5 MG NORCO PRN. YOSVANY PO. VOIDING WELL, BM++ SOFT TODAY. AMB 2 PP FOR SAFETY TO BRP WITH FWW/GB, UP TO CHAIR T/O SHIFT. SHOWERED TODAY. POWERGLIDE LUE DRAWS AND FLUSHES. WILL REPORT TO ONCOMING NOC RN.
--- NOTE | 2021-12-22 06:07 | NUR ---
SUMMARY NO NEW CHANGES. PT DISCOMFORT AND ITCHINESS TREATED PER EMAR. PT HAS SLEPT THROUGHOUT SHIFT. PT CURRENTLY SLEEPING AND IN NO DISTRESS. CALL LIGHT IN REACH.
--- NOTE | 2021-12-22 16:05 | NUR ---
SHIFT SUMMARY PLAN FOR POSSIBLE DISCHARGE HOME TOMORROW WITH HOME HEALTH. SPOKE WITH DR. العراقي TODAY. HE RESTARTED HER BACTRIM X5 ADDITIONAL DAYS, AND REQUESTED A FOLLOW UP LATE THIS WEEK OR EARLY NEXT WEEK FOR STAPLE REMOVAL. DRESSING TO L BROCK CHANGED TODAY AND MINE WRAP APPLIED. PT IS A 1 ASSIST WHEN OOB. SHE IS TOLERATING PO AND ATTEMPTING TO INCREASE NUTRITIONAL INTAKE. PT IS STILL COMPLAINING OF ITCHING TO HER ZARA AREA, USING NYSTATIN CREAM. WILL CONTINUE TO MONITOR.
--- NOTE | 2021-12-22 18:09 | NUR ---
REPORT RECEIVED FROM MG FARLEY. ASSUMED PT CARE.
--- NOTE | 2021-12-23 03:50 | NUR ---
ALERT AND ORIENTED X4. ITCHING AT THE BEGINNING OF THE SHIFT; BENADRYL WAS GIVEN; HELPED. TAKING PO WELL. VOIDING AND BM ON THIS SHIFT. PT TURNS WELL FOR BEDPAN. BUTTOCK IS SORE; REPOSITIONING. VSS. ON 2L OF O2. AWAKE FOR MOST OF THE NIGHT.
[2021-12-23] MEDS ORDERED: METO25ER PO (10:04)
[2021-12-23] MEDS ORDERED: SULTRIDS PO (10:08)
[2021-12-23] MEDS ORDERED: VISBIOME 112.51 EACH PO (10:09)
--- NOTE | 2021-12-23 10:20 | NUR ---
DROP IN O2 WITH THERAPY PER PALOMO POOL RN, PT WAS UP WITH PHYSICAL THERAPY AND DROPPED TO 86% WHILE ON RA. DISCUSSED POSSIBLE NEED FOR HOME O2 EVAL WITH DR. VILLASEÑOR. DR. VILLASEÑOR STATED OK TO CONTINUE WITH DISCHARGE PLAN AT THIS TIME WITHOUT NEED FOR HOME O2 EVAL. PT REPORTS USING 3L O2 VIA NC DURING THE NIGHT AT BASELINE.
--- NOTE | 2021-12-23 15:12 | NUR ---
[facility] DELIVERED WALKER TO [place]. PT DECLINES WALKER TELLS ME SHE HAS 3 WALKERS AT HOME AND DOES NOT WANT THIS ONE THAT WAS DELIVERED
--- NOTE | 2021-12-23 15:46 | NUR ---
PT TELLS ME SHE USES OXYGEN AT HOME BUT DOES NOT WANT HER DAUGHTER TO BRING TANK TO HOSPITAL UPON DISCHARGE SHE LIVES LESS THAN 5 MIN FROM THE HOSPITAL
--- NOTE | 2021-12-23 16:50 | NUR ---
REVIEWED DISCHARGE INSTRUCTIONS WITH PATIENT AND PATIENTS DAUGHTER ,NARESH. NARESH TELLS ME SHE IS CONCERNED THAT PATIENT WILL NOT BE ABLE TO PRINTER ASSISTANT HER PRESCRIPTIONS FOR NEW MEDS THE LAST TIME SHE CALLED IN MEDS IT TOOK 18 DAYS TO BE FILLED AT [facility]. I CONTACTED [facility] AND WAS TOLD THE BACTRIM CAN BE PICKED UP BY CLOSING TIME TONIGHT AND OTHER NEW MEDS CAN BE PICKED UP BY TOMORROW AT THE LATEST. PT AND DAUGHTER ARE IN AGREEMENT WITH DISCHARGE PLANS. PT IS STANDBY ASSIST TO BATHROOM. YOSVANY PO FOODS AND FLUIDS WITHOUT NAUSEA.PT REPORTS PAIN IS ADEQUATELY CONTROLLED. DISCHARGED HOME AT 1640
== END 2021-12-23 16:40 | disposition home or self-care (01) | DRG 522 ==
LOC: ER 21:29 → SURS 12-06 00:34
PROVIDERS: Internal Medicine; Orthopaedic Surgery; Physician Assistant; ADMIT Internal Medicine
PROC: 0SRS0JA Replacement of Left Hip Joint, Femoral Surface with Synthetic Substitute, Uncemented, Open Approach (ICD-10-PCS; principal; 2021-12-11 08:30)
DX: S72.002A Fracture of unspecified part of neck of left femur, initial encounter for closed fracture (principal); I50.32 Chronic diastolic (congestive) heart failure; I13.0 Hypertensive heart and chronic kidney disease with heart failure and stage 1 through stage 4 chronic kidney disease, or unspecified chronic kidney disease; W18.30XA Fall on same level, unspecified, initial encounter; N18.30 Chronic kidney disease, stage 3 unspecified; E03.9 Hypothyroidism, unspecified; E78.5 Hyperlipidemia, unspecified; E78.00 Pure hypercholesterolemia, unspecified; Z86.718 Personal history of other venous thrombosis and embolism; Z79.899 Other long term (current) drug therapy; Z88.5 Allergy status to narcotic agent; Z88.8 Allergy status to other drugs, medicaments and biological substances; Z90.49 Acquired absence of other specified parts of digestive tract; Z90.710 Acquired absence of both cervix and uterus; Z98.890 Other specified postprocedural states; J44.9 Chronic obstructive pulmonary disease, unspecified; Z99.81 Dependence on supplemental oxygen
CPT/HCPCS: 0241U; 36415; 72170; 73080; 73502; 73552; 73590; 73701; 80048; 80053; 80069; 80202; 83735; 84132; 85014; 85018; 85025; 85027; 87070; 87075; 87205; 88305; 88311; 94640; 94664; 94760; 94761; 94762; 97110; 97110-CQ; 97116; 97116-CQ; 97162; 97530; 97530-CQ; 99285-25; A9270; C1776; C9113; J0171; J0735; J1100; J1200; J1650; J1885; J2250; J2370; J2405; J2543; J2704; J2795; J2930; J3010; J3370; J7030; J7040; J7060; J7120; Q9967

== ENCOUNTER 2022-10-07 18:09 | Emergency (ER) | payer OTHER ==
[~2022-10-07] VITALS: Ht 160 cm; Wt 74.4 kg
[~2022-10-07 18:09] MED LIST changes: +METO25ER PO; +SULTRIDS PO; +VISBIOME 112.51 EACH PO
[2022-10-07] MEDS ORDERED: CEPH500 PO (20:33)
== END 2022-10-07 20:49 | disposition home or self-care (01) ==
LOC: ER 18:09
DX: L02.01 Cutaneous abscess of face (principal); I50.32 Chronic diastolic (congestive) heart failure; N18.30 Chronic kidney disease, stage 3 unspecified; J44.9 Chronic obstructive pulmonary disease, unspecified; E03.9 Hypothyroidism, unspecified; I48.91 Unspecified atrial fibrillation; Z88.5 Allergy status to narcotic agent; Z88.8 Allergy status to other drugs, medicaments and biological substances; Z79.899 Other long term (current) drug therapy; Z79.01 Long term (current) use of anticoagulants; F17.210 Nicotine dependence, cigarettes, uncomplicated; Z99.81 Dependence on supplemental oxygen
CPT/HCPCS: A9270

== ENCOUNTER 2022-12-29 14:17 | Emergency (ER) | payer OTHER ==
[~2022-12-29] VITALS: Ht 160 cm; Wt 72.6 kg
[~2022-12-29 14:17] MED LIST changes: +CEPH500 PO
== END 2022-12-29 17:13 | disposition home or self-care (01) ==
LOC: ER 14:17
DX: S70.02XA Contusion of left hip, initial encounter (principal); I50.32 Chronic diastolic (congestive) heart failure; N18.30 Chronic kidney disease, stage 3 unspecified; M10.9 Gout, unspecified; E03.9 Hypothyroidism, unspecified; K21.9 Gastro-esophageal reflux disease without esophagitis; J44.9 Chronic obstructive pulmonary disease, unspecified; I48.91 Unspecified atrial fibrillation; F17.210 Nicotine dependence, cigarettes, uncomplicated; Z79.899 Other long term (current) drug therapy; Z79.01 Long term (current) use of anticoagulants; W18.30XA Fall on same level, unspecified, initial encounter
CPT/HCPCS: 36415; 71046; 71100; 73502; 99283-25

== ENCOUNTER 2023-01-06 07:50 | Inpatient (IN) | payer OTHER ==
[~2023-01-06] VITALS: Ht 160 cm; Wt 75.0 kg
[2023-01-06 08:32] LABS: BASOPHILS ABSOLUTE AUTO 0.07 K/mm3 (0.00-0.23); BASOPHILS PERCENT AUTO 0 % (0-2); EOSINOPHILS ABSOLUTE AUTO 0.05 K/mm3 (0.00-0.68); EOSINOPHILS PERCENT AUTO 0 % (0-6); Hematocrit 38.2 % (33.0-51.0); Hemoglobin 13.3 g/dL (11.5-16.0); IMMATURE GRAN ABSOLUTE AUTO 0.17 K/mm3 (0.00-0.10); IMMATURE GRAN PERCENT AUTO 1 % (0-1); LYMPHOCYTES ABSOLUTE AUTO 1.17 K/mm3 (0.84-5.20); LYMPHOCYTES PERCENT AUTO 6 % (21-46); MONOCYTES ABSOLUTE AUTO 1.79 K/mm3 (0.16-1.47); MONOCYTES PERCENT AUTO 9 % (4-13); Mean Corpuscular HGB 33.7 pg (26.0-34.0); Mean Corpuscular HGB Conc 34.8 g/dL (31.5-36.5); Mean Corpuscular Volume 97 fL (80-100); Mean Platelet Volume 10.1 fL (9.1-12.4); NEUTROPHILS PERCENT AUTO 83 % (41-73); Platelet Count 254 K/mm3 (150-400); RDW Standard Deviation 53.1 fL (35.1-46.3); Red Blood Cell Count 3.95 M/mm3 (3.80-5.20); White Blood Cell Count 19.35 K/mm3 (4.00-11.30)
[2023-01-06 08:46] LABS: Albumin, Blood 1.9 g/dL (3.4-5.0); Albumin/Globulin Ratio 0.6 (0.8-1.8); Bilirubin, Total 0.6 mg/dL (0.1-1.0); Bun/Creatinine Ratio 26.5 (12.0-20.0); Calcium, Blood 7.9 mg/dL (8.5-10.1); Creatinine, Blood 1.32 mg/dL (0.40-1.00); Globulin, Blood 3.4 g/dL (2.2-4.0); Potassium, Blood 2.6 mmol/L (3.5-5.5); Total Protein, Blood 5.3 g/dL (6.4-8.2)
[2023-01-06 10:24] LABS: Source, Urine Straight Cath
[2023-01-06 10:43] LABS: Appearance, Urine Turbid (Clear); Bilirubin, Urine Neg (Neg); Blood, Urine 3+ (Neg); Color, Urine Yellow (P-Yellow); Glucose Qualitative, Urine Neg (Neg); Ketones, Urine 1+ (Neg); Leukocyte Esterase, Urine 3+ (Neg); Nitrite, Urine Pos (Neg); Protein, Urine 2+ (Neg); Specific Gravity, Urine 1.015 (1.003-1.022); Urobilinogen, Urine NORM (Normal)
[2023-01-06 10:46] LABS: Influenza A, PCR NEGATIVE (NEGATIVE); Influenza B, PCR NEGATIVE (NEGATIVE); Resp Syncytial Virus, PCR NEGATIVE (NEGATIVE); SARS-Cov-2 (COVID-19) PCR, MMC NEGATIVE (NEGATIVE)
[2023-01-06 11:16] LABS: White Blood Cells, Urine TNTC /hpf (0-5)
[2023-01-06 11:17] LABS: Bacteria Mod /hpf; Squamous Epithelial Cells Mod /hpf (Few)
[2023-01-06 12:54] LABS: Adenovirus F 40/41 Not Detected (NOT DETECT); Astrovirus Not Detected (NOT DETECT); Campylobacter Sp Not Detected (NOT DETECT); Cryptosporidium Not Detected (NOT DETECT); Cyclospora Cayetanensis Not Detected (NOT DETECT); E. Coli O157 Not Detected (NOT DETECT); Entamoeba Histolytica Not Detected (NOT DETECT); Enteroaggregative E. coli-EAEC Not Detected (NOT DETECT); Enteropathogenic E. coli-EPEC Not Detected (NOT DETECT); Enterotoxigenic E. coli-ETEC Not Detected (NOT DETECT); Giardia Lamblia Not Detected (NOT DETECT); Norovirus GI/GII Not Detected (NOT DETECT); Plesiomonas Shigelloides Not Detected (NOT DETECT); Rotavirus A Not Detected (NOT DETECT); Salmonella Sp Not Detected (NOT DETECT); Sapovirus Not Detected (NOT DETECT); Shiga Toxin-prod E. coli-STEC Not Detected (NOT DETECT); Shigella/Enteroin E. coli-EIEC Not Detected (NOT DETECT); Vibrio Cholerae Not Detected (NOT DETECT); Vibrio Sp Not Detected (NOT DETECT); Yersinia Enterocolitica Not Detected (NOT DETECT)
--- NOTE | 2023-01-06 17:21 | NUR ---
ASSUMED CARE: PT ARRIVED FROM ED WITH LEVOPHED GTT RUNNING AT 5MCG/MIN. DISCONNECTED FOR TRANSFER TO ICU BED AND NOTICED MAP OF 66. LEVOPHED HAS REMAINED OFF SINCE ARRIVAL DUE TO MAPS BEING ABOVE [address] MA. PT NSR ON TELE, 2L O2 VIA NC. RECTAL TUBE PLACED DUE TO FREQUENT DIARRHEA AND REDDENED SKIN TO COCCYX, APPEARS FRAGILE. CALL LIGHT IN REACH. NO ACUTE NEEDS OR CONCERNS AT THIS TIME.
[2023-01-06] MEDS ORDERED: Acerola C500 MG PO (18:46)
[2023-01-06] MEDS ORDERED: FERROUS SULFAT325 M3 PO (18:48)
[2023-01-06] MEDS ORDERED: OMEP20ER PO (18:49)
[2023-01-06] MEDS ORDERED: ATOR40TA PO (18:50)
--- NOTE | 2023-01-06 19:00 | NUR ---
ASSUMPTION OF CARE PT RESTING IN BED WITH DAUGHTERS AT BEDSIDE. PT A&OX4. SHE IS RECEIVING NS 100ML/HR. PER REPORT, LEVOPHED HAS BEEN ON STANDBY SINCE ARRIVAL TO UNIT. GOAL OF MAP >[address] RECTAL TUBE IN PLACE DRAINING LIQUID STOOL. BED IN LOW POSITION AND CALL LIGHT WITHIN REACH.
--- NOTE | 2023-01-06 20:35 | NUR ---
UPDATE PT HAD ONE EPISODE OF SUDDEN ONSET EMESIS THAT WAS CLEAR LIQUID AND PINK JELLO. PT STS SHE "THINKS SHE ATE TOO MUCH". PT DENIES NAUSEA OR NEED FOR MEDICATION.
[2023-01-07 03:42] LABS: Hematocrit 32.8 % (33.0-51.0); Hemoglobin 11.3 g/dL (11.5-16.0); Mean Corpuscular HGB 33.8 pg (26.0-34.0); Mean Corpuscular HGB Conc 34.5 g/dL (31.5-36.5); Mean Corpuscular Volume 98 fL (80-100); Mean Platelet Volume 10.2 fL (9.1-12.4); Platelet Count 234 K/mm3 (150-400); RDW Coefficient Variation 15.5 % (11.7-14.2); RDW Standard Deviation 55.8 fL (35.1-46.3); Red Blood Cell Count 3.34 M/mm3 (3.80-5.20); White Blood Cell Count 18.24 K/mm3 (4.00-11.30)
[2023-01-07 03:59] LABS: Bun/Creatinine Ratio 22.7 (12.0-20.0); Calcium, Blood 7.2 mg/dL (8.5-10.1); Creatinine, Blood 0.97 mg/dL (0.40-1.00); Potassium, Blood 2.8 mmol/L (3.5-5.5)
--- NOTE | 2023-01-07 06:13 | NUR ---
SHIFT SUMMARY NO ACUTE CHANGES OVERNIGHT. PT REMAINS A&OX4. SHE IS ON 2L NC WITH SPO2 >94%. OCCASIONAL DRY COUGH THAT PT STS SHE HAS HAD "FOR AWHILE". NS INFUSING AT 100ML/HR. LEVOPHED HAS BEEN ON STANDBY THROUGHOUT SHIFT WITH GOAL MAP >60. PT HAD ONE EPISODE OF EMESIS. SINCE THEN SHE HAS DENIED GI UPSET. RECTAL TUBE PATENT AND DRAINING BROWN/GREEN LIQUID STOOL WITH SHIFT OUTPUT OF 500ML. PT HAD 2 INCONTINENT VOIDS. DRY FLOWS AND ATTENDS IN PLACE. KCL INFUSING AT THIS TIME. BED IN LOW POSITION, CALL LIGHT WITHIN REACH.
[2023-01-07 10:56] LABS: Bun/Creatinine Ratio 23.3 (12.0-20.0); Calcium, Blood 7.2 mg/dL (8.5-10.1); Creatinine, Blood 0.9 mg/dL (0.40-1.00); Magnesium, Blood 1.7 mg/dL (1.6-2.4)
--- NOTE | 2023-01-07 11:00 | NUR ---
PT A/O X4. RECTAL TUBE WAS UNCOMFORTABLE FOR PT SO IT WAS REMOVED. ATTENDS PLACED. PT TOLERATING CL DIET. NO CHANGES THIS AM, TRANSFERED TO PCU 17. NO SIGN OF DISTRESS PT LEAVES THE UNIT.
[2023-01-07] MEDS ORDERED: PACERONE100 M1 PO (12:38)
[2023-01-07] MEDS ORDERED: DOCU100 PO (12:39)
[2023-01-07] MEDS ORDERED: MERIBIN5 MG PO (12:39)
[2023-01-07] MEDS ORDERED: ALLO100 PO (12:41)
--- NOTE | 2023-01-07 18:52 | NUR ---
PCU ARRIVAL / END OF SHIFT NOTE PT BROUGHT TO PCU-17 @ APPROX 1115. PT A&O X4. BP SOFT, OTHERWISE VSS. SPO2 > 92% ON 2L NC. MONITOR SHOWING SR, HR 60s-70s. PT WEARING ATTENDS, INCONTINENT OF URINE & STOOL, PRN ZARA CARE PROVIDED.
--- NOTE | 2023-01-07 20:13 | NUR ---
ASSUMPTION OF CARE THIS RN ASSUMED CARE OF PT AT 1900. REPORT FROM MG CAUSEY. PT LYING IN BED, APPEARS FATIGUE AND PALE. PT STATES SHE IS FEELING WEAK AND TIRED BUT "MUCH BETTER". DENIES HEADACHE, N/V, LIGHTHEADNESS OR DIZZINESS. PT DENIES SOB, CP OR PRESSURE. VS; BP 93/46 W/MAP OF 60, SR W/HR OF 73, RR 18, SPO2 95% ON 2 L, AND TEMP OF 97.3. PT DOES NOT APPEAR TO BE IN ANY DISTRESS AT THIS TIME. PT DOES REPORT HAVING A BM AND NEEDING TO BE CHANGED. BM MODERATE IN SIZE, DARK BROWN AND UNFORMED BUT THICKER IN CONSISTENCY. PT REPORTS FEELING LIKE HER BM'S ARE DECREASING IN AMOUNT AND ARE IMPROVING. PT DOES HAVING BRUISING ON LOWER AND UPPER BACK AND COCCYX FROM RECENT FALL. REPORTS STILL BEING SORE FROM THIS EVENT. COCCYX MILDLY RED BUT BLANCHABLE; BARRIER CREAM APPLIED. PT DOES NOT EXPRESS ANY CONCERNS OR NEEDS AT THIS TIME. CALL LIGHT IN REACH AND BED IN LOWEST POSITION.
--- NOTE | 2023-01-07 21:56 | NUR ---
UPDATE PT HAD ANOTHER BM THAT WAS SMALL, LOOSE W/CLEAR JELLY SUBSTANCE, AND BROWN IN COLOR. ATTENDS CHANGED AND ZARA-CARE COMPLETED. PT REPOSITIONED TO R SIDE W/PILLOWS AND FEET ELEVATED W/PILLOWS. PT EXPRESSES NO CONCERNS OR NEEDS AT THIS TIME. EDUCATION PROVIDED ON C-DIFF AND CURRENT ILLNESS PT WAS ASKING QUESTIONS. PT VERBALIZED UNDERSTANDING AND WAS RECEPTIVE. PT NOW APPEARS TO BE RESTING AND SLEEPING IN BED. CALL LIGHT IN REACH AND BED IN LOWEST POSITION.
--- NOTE | 2023-01-07 23:20 | NUR ---
UPDATE LATEST BP SHOWED 75/47 WITH MAP OF 57. PT SOUND ASLEEP IN ROOM. THIS RN CALLED RESIDENT TO NOTIFY OF RECENT BP. NEW ORDERS FOR 500 ML NS BOLUS AND THEN RECHECK BLOOD PRESSURE, ALSO TO NOTIFY PROVIDER AFTER COMPLETION OF BOLUS WITH UPDATE. THIS RN IN TO ROOM TO INFORM PT OF NEW ORDERS, PT EASILY AROUSABLE AND REMAINS A&O CX4. DENIES ANY SX OF LOW BP. THIS RN WILL COMPLETE BOLUS AND RECHECK BP, WELL CONTINUE TO MONITOR DURING THIS SHIFT.
--- NOTE | 2023-01-08 00:04 | NUR ---
UPDATE THIS RN STARTED BOLUS PER RESIDENT ORDERS. BP JUST PRIOR TO STARTING BOLUS 77/49 WITH MAP 58. WILL COMPLETE BOLUS AND THEN RECHECK BP AND NOTIFY RESIDENT.
--- NOTE | 2023-01-08 00:51 | NUR ---
UPDATE NS BOLUS FINISHED INFUSING; REPEAT BP IS 73/52 W/MAP OF 60. THIS RN CALLED RESIDENT TO NOTIFY AND UPDATE BUT NO ANSWER. RESIDENT PUT IN ORDER FOR MIDODRINE PRN FOR MAP <65. THIS RN DISCUSSED WITH CONVEYOR LINE BATTERY CHARGER. WILL ADMINISTER MIDODRINE AND REASSESS BP.
[2023-01-08 04:02] LABS: BASOPHILS ABSOLUTE AUTO 0.05 K/mm3 (0.00-0.23); BASOPHILS PERCENT AUTO 0 % (0-2); EOSINOPHILS ABSOLUTE AUTO 0.43 K/mm3 (0.00-0.68); EOSINOPHILS PERCENT AUTO 2 % (0-6); Hematocrit 32.7 % (33.0-51.0); Hemoglobin 10.8 g/dL (11.5-16.0); IMMATURE GRAN ABSOLUTE AUTO 0.17 K/mm3 (0.00-0.10); IMMATURE GRAN PERCENT AUTO 1 % (0-1); LYMPHOCYTES ABSOLUTE AUTO 1.83 K/mm3 (0.84-5.20); LYMPHOCYTES PERCENT AUTO 10 % (21-46); MONOCYTES ABSOLUTE AUTO 1.42 K/mm3 (0.16-1.47); MONOCYTES PERCENT AUTO 8 % (4-13); Mean Corpuscular HGB 33.1 pg (26.0-34.0); Mean Corpuscular Volume 100 fL (80-100); Mean Platelet Volume 9.8 fL (9.1-12.4); NEUTROPHILS ABSOLUTE AUTO 14.16 K/mm3 (1.96-9.15); NEUTROPHILS PERCENT AUTO 78 % (41-73); Platelet Count 234 K/mm3 (150-400); RDW Coefficient Variation 15.8 % (11.7-14.2); RDW Standard Deviation 57.8 fL (35.1-46.3); Red Blood Cell Count 3.26 M/mm3 (3.80-5.20); White Blood Cell Count 18.06 K/mm3 (4.00-11.30)
[2023-01-08 04:18] LABS: Albumin, Blood 1.7 g/dL (3.4-5.0); Anion Gap 0 mmol/L (6-16); Blood Urea Nitrogen 14 mg/dL (8-24); Bun/Creatinine Ratio 18.8 (12.0-20.0); CO2, Blood 24 mmol/L (21-32); Calcium, Blood 7.4 mg/dL (8.5-10.1); Chloride, Blood 112 mmol/L (98-108); Creatinine, Blood 0.74 mg/dL (0.40-1.00); Glomerular Filtration Rate 83 (60-); Glucose, Blood 90 mg/dL (70-99); Phosphorus, Blood 1.3 mg/dL (2.5-4.9); Potassium, Blood 3.7 mmol/L (3.5-5.5); Sodium, Blood 136 mmol/L (136-145)
--- NOTE | 2023-01-08 06:29 | NUR ---
SHIFT SUMMARY PT REMAINS A&0 X4. PT SLEPT WELL THROUGHOUT SHIFT. VSS; ALTHOUGH BP ARE STILL SOFT. BP AFTER MIDODRINE WERE SLIGHTLY IMPROVED; STILL SOFT BUT MAPS MAINTAINING 60 - 65. PT DENIES SX R/T LOW BLOOD PRESSURES. WHEN PT SLEEPS MAPS BETWEEN 56-58, WHEN AWAKENED AND BP RECHECKED MAP IMPROVES. WILL UPDATE ONCOMING RN. PT HAD BM X4 THIS SHIFT; STOOLS ARE LOOSE MEDIUM TO LARGE, BROWN IN COLOR AND JELLY-CLEAR CONSISTENCY. PT ABLE TO VERBALIZE WHEN SHE HAS BM AND WHEN SHE NEEDS TO BE CHANGED. PT ABLE TO VERBALIZE OTHER NEEDS WELL. NO ACUTE CHANGES FROM ASSUMPTION OF CARE AND BP (SEE OTHER NURSING NOTES). CALL LIGHT IN REACH AND BED IN LOWEST POSITION. WILL CONTINUE TO MONTIOR UNTIL AM RN ARRIVES AND WILL UPDATE AM RN
--- NOTE | 2023-01-08 17:53 | NUR ---
SHIFT SUMMARY PT HAS BEEN RESTING IN ROOM. PT HAS ASSISTED WITH POSITIONING AND ATTENDS CHANGES. PT HAS CONTINUED TO HAVE INCONTINENCE OF URINE AND STOOL. STOOLS HAVE BEEN SMALL AND MUCOUSY/JELLY. PT HAS CALLED APPROPRIATELY FOR ASSISTANCE AND HAS BEEN COOPERATIVE WITH ALL CARES. BLOOD PRESSURE HAS PRESISTENTLY RETURNED LOW (86-95). MIDODRINE WAS ADMINISTERED PER EMAR. PT HAS C/O MILD DISCOMFORT TO LEFT HIP AND SHOULDER THAT HAS BEEN ADDRESSED WITH REPOSITIONING. NO ACUTE CHANGES IN CONDITION.
[2023-01-08 20:53] LABS: Hematocrit 35.3 % (33.0-51.0)
[2023-01-08 22:22] LABS: Stool Occult Blood Guaiac 1 Neg (Neg)
[2023-01-09 04:23] LABS: BASOPHILS ABSOLUTE AUTO 0.05 K/mm3 (0.00-0.23); BASOPHILS PERCENT AUTO 1 % (0-2); EOSINOPHILS ABSOLUTE AUTO 0.35 K/mm3 (0.00-0.68); EOSINOPHILS PERCENT AUTO 3 % (0-6); Hemoglobin 11.8 g/dL (11.5-16.0); IMMATURE GRAN ABSOLUTE AUTO 0.15 K/mm3 (0.00-0.10); IMMATURE GRAN PERCENT AUTO 1 % (0-1); LYMPHOCYTES ABSOLUTE AUTO 1.66 K/mm3 (0.84-5.20); LYMPHOCYTES PERCENT AUTO 15 % (21-46); MONOCYTES ABSOLUTE AUTO 1.04 K/mm3 (0.16-1.47); MONOCYTES PERCENT AUTO 10 % (4-13); Mean Corpuscular HGB 33.9 pg (26.0-34.0); Mean Corpuscular HGB Conc 33.7 g/dL (31.5-36.5); Mean Corpuscular Volume 101 fL (80-100); Mean Platelet Volume 9.6 fL (9.1-12.4); NEUTROPHILS PERCENT AUTO 70 % (41-73); Platelet Count 255 K/mm3 (150-400); Red Blood Cell Count 3.48 M/mm3 (3.80-5.20); White Blood Cell Count 10.75 K/mm3 (4.00-11.30)
[2023-01-09 04:39] LABS: Bun/Creatinine Ratio 14.7 (12.0-20.0); Calcium, Blood 7.8 mg/dL (8.5-10.1); Creatinine, Blood 0.75 mg/dL (0.40-1.00); Potassium, Blood 4.1 mmol/L (3.5-5.5)
--- NOTE | 2023-01-09 06:17 | NUR ---
SHIFT SUMMARY PT REMAINS A&O X4. VSS, ALTHOUGH BP ARE STILL SOFT; MAPS 60 - 65. HOSPITALIST NOTIFIED OF SOFT BP AND LOW MAPS; ORDER FOR RECHECK BP 10 MINS AFTER CALL. RECHECKED STILL SHOWED DECREASED MAP. HOSPITALIST RENOTIFIED; NEW ORDERS FOR NS BOLUS 500 MLS X1. BOLUS COMPLETED W/MINIMAL IMPROVEMENT. THIS RN ALSO ADMINISTERED MIDODRINE X1 PER EMAR. BP HAVE REMAINED STABLE AND MAPS >65. LAST VS SHOWED BP OF 100/56 WITH MAP OF 72. PT CONTINUES TO DENY SX OF LOW BLOOD PRESSURE. PT REMAINS ON 2 L O2 W/SPO2 >94%. PT HAD 3 BM THIS SHIFT; ALL SMALL TO MEDIUM, BROWN IN COLOR AND JELLY/MUCOUS IN CONSISTENCY. AT START OF SHIFT, THIS RN NOTED SOME REDDISH COLORING IN STOOL. HOSPITALIST NOTIFIED AND ORDER FOR STOOL SAMPLE. RESULTS RETURNED NEGATIVE FOR BLOOD IN STOOL. SOME MILD REDDENING NOTED IN INNER THIGHS (WHERE ATTENDS ARE IN PLACE); POWDER APPLIED. CALL LIGHT IN REACH AND BED IN LOWEST POSITION.
--- NOTE | 2023-01-09 17:23 | NUR ---
LATE ENTRY: PT WAS TRANSFERRED TO MEDICAL FLOOR. RN GAVE REPORT TO MEDICAL FLOOR MG NICHOLSON. PT AMBULATED FROM PCU BED TO MEDICAL BED WITH SUPERVISION OF TWO STAFF. SHE TOLERATED THE TRANSFER WELL WEARING 2LPM OXYGEN VIA NC CONTINUOUSLY. ALL PERSONAL BELONGINGS RETURNED TO PT.
[2023-01-09 20:51] LABS: Hematocrit 35.8 % (33.0-51.0); Hemoglobin 11.9 g/dL (11.5-16.0)
--- NOTE | 2023-01-09 22:53 | NUR ---
TRANSFER TO MEDICAL FLOOR PT TRANSFERRED FROM PCU TO MEDICAL FLOOR AT APPROX 1655. PT IS AxOx4. PLEASANT AND COOPERATIVE WITH CARE. VITALS OBTAINED. PT DENIES PAIN. FAMILY IN ROOM. PT ON 2L O2 VIA NC. DENIES SOB WITH NC IN PLACE. PT REPORTS 2 LOOSE STOOLS THIS SHIFT. PT STATES SHE THINKS HER STOOL IS FIRMING UP. PT IS CURRENTLY RESTING IN BED WITH CALL LIGHT IN REACH. DENIES ANY NEEDS AT THIS TIME.
[2023-01-10 04:58] LABS: BASOPHILS ABSOLUTE AUTO 0.05 K/mm3 (0.00-0.23); BASOPHILS PERCENT AUTO 1 % (0-2); EOSINOPHILS ABSOLUTE AUTO 0.28 K/mm3 (0.00-0.68); EOSINOPHILS PERCENT AUTO 3 % (0-6); Hematocrit 36.2 % (33.0-51.0); Hemoglobin 11.8 g/dL (11.5-16.0); IMMATURE GRAN ABSOLUTE AUTO 0.15 K/mm3 (0.00-0.10); IMMATURE GRAN PERCENT AUTO 2 % (0-1); LYMPHOCYTES ABSOLUTE AUTO 1.61 K/mm3 (0.84-5.20); LYMPHOCYTES PERCENT AUTO 17 % (21-46); MONOCYTES ABSOLUTE AUTO 0.93 K/mm3 (0.16-1.47); MONOCYTES PERCENT AUTO 10 % (4-13); Mean Corpuscular HGB 33.5 pg (26.0-34.0); Mean Corpuscular HGB Conc 32.6 g/dL (31.5-36.5); Mean Corpuscular Volume 103 fL (80-100); Mean Platelet Volume 9.8 fL (9.1-12.4); NEUTROPHILS ABSOLUTE AUTO 6.38 K/mm3 (1.96-9.15); NEUTROPHILS PERCENT AUTO 68 % (41-73); Platelet Count 266 K/mm3 (150-400); RDW Standard Deviation 60.7 fL (35.1-46.3); Red Blood Cell Count 3.52 M/mm3 (3.80-5.20)
[2023-01-10 05:21] LABS: Albumin, Blood 1.6 g/dL (3.4-5.0); Anion Gap 2 mmol/L (6-16); Blood Urea Nitrogen 7 mg/dL (8-24); Bun/Creatinine Ratio 9.5 (12.0-20.0); CO2, Blood 22 mmol/L (21-32); Calcium, Blood 7.6 mg/dL (8.5-10.1); Chloride, Blood 113 mmol/L (98-108); Creatinine, Blood 0.74 mg/dL (0.40-1.00); Glomerular Filtration Rate 83 (60-); Glucose, Blood 86 mg/dL (70-99); Phosphorus, Blood 1.9 mg/dL (2.5-4.9); Potassium, Blood 4.4 mmol/L (3.5-5.5); Sodium, Blood 137 mmol/L (136-145)
--- NOTE | 2023-01-10 05:21 | NUR ---
SHIFT SUMMARY PATIENT DENIES PAIN, NAUSEA, AND SHORTNESS OF BREATH. PATIENT IS A SBA FOR TRANSFERS. PATIENT IS ON 2L VIA N/C, SATURATING ABOVE 90%. PATIENT IS A&0 X4, CALLS APPROPRIATELY. PATIENT SLEPT ON AND OFF THROUGHOUT SHIFT. PATIENT IS PLEASANT AND COOPERATIVE WITH CARE.
[2023-01-10] MEDS ORDERED: VANCOCIN HCL250 MG PO (11:43)
[2023-01-10] MEDS ORDERED: VISBIOME 112.51 EACH PO (11:44)
--- NOTE | 2023-01-10 12:47 | NUR ---
DISCHARGE NO ACUTE EVENTS DURING THIS SHIFT. PATIENT A&OX4, COOPERATIVE WITH CARE. HOME 02 EVAL COMPLETED, NO O2 NEEDED EXCEPT PRN FOR NIGHT TIME PER DAUGHTER. CDIFF EDUCATION GIVEN, DISCHARGE PAPERWORK DISCUSSED. DISCHARGED HOME WITH PLANS FOR [facility]. PT LEFT WITH DAUGHTER NARESH AROUND 1230.
== END 2023-01-10 12:39 | disposition home health service (06) | DRG 871 ==
LOC: ER 07:50 → ICUW 14:49 → ICUE 16:56 → PCU 01-07 11:09 → MEDS 01-09 16:53
PROVIDERS: Family Medicine; Family Medicine Adult Medicine; Student in an Organized Health Care Education/Training Program; ADMIT Internal Medicine
PROC: 3E033XZ Introduction of Vasopressor into Peripheral Vein, Percutaneous Approach (ICD-10-PCS; principal; 2023-01-06)
PROC: 3E03329 Introduction of Other Anti-infective into Peripheral Vein, Percutaneous Approach (ICD-10-PCS; 2023-01-06)
DX: A41.4 Sepsis due to anaerobes (principal); R65.21 Severe sepsis with septic shock; A04.72 Enterocolitis due to Clostridium difficile, not specified as recurrent; N17.9 Acute kidney failure, unspecified; I50.32 Chronic diastolic (congestive) heart failure; I13.0 Hypertensive heart and chronic kidney disease with heart failure and stage 1 through stage 4 chronic kidney disease, or unspecified chronic kidney disease; E87.1 Hypo-osmolality and hyponatremia; J44.9 Chronic obstructive pulmonary disease, unspecified; Z66 Do not resuscitate; E87.6 Hypokalemia; E03.9 Hypothyroidism, unspecified; I27.20 Pulmonary hypertension, unspecified; I44.0 Atrioventricular block, first degree; N18.30 Chronic kidney disease, stage 3 unspecified; I48.0 Paroxysmal atrial fibrillation; M10.9 Gout, unspecified; E78.00 Pure hypercholesterolemia, unspecified; G25.0 Essential tremor; F17.210 Nicotine dependence, cigarettes, uncomplicated; M54.9 Dorsalgia, unspecified; G89.29 Other chronic pain; E55.9 Vitamin D deficiency, unspecified; K21.9 Gastro-esophageal reflux disease without esophagitis; B96.20 Unspecified Escherichia coli [E. coli] as the cause of diseases classified elsewhere; Z60.2 Problems related to living alone; Z96.642 Presence of left artificial hip joint; Z20.822 Contact with and (suspected) exposure to COVID-19; Z90.49 Acquired absence of other specified parts of digestive tract; Z98.890 Other specified postprocedural states; Z90.710 Acquired absence of both cervix and uterus; Z88.5 Allergy status to narcotic agent; Z86.718 Personal history of other venous thrombosis and embolism; Z79.01 Long term (current) use of anticoagulants; Z99.81 Dependence on supplemental oxygen; Z91.041 Radiographic dye allergy status; Z79.899 Other long term (current) drug therapy; Z79.52 Long term (current) use of systemic steroids; Z87.19 Personal history of other diseases of the digestive system; Z90.722 Acquired absence of ovaries, bilateral; Z98.49 Cataract extraction status, unspecified eye
CPT/HCPCS: 0241U; 36415; 71045; 74176; 80048; 80053; 80069; 81001; 82272; 83605; 83735; 83880; 85014; 85018; 85025; 85027; 87040; 87077; 87086; 87186; 87324; 87507; 93005; 93010; 93306; 94640; 94664; 94760; 94762; 96361; 96365; 96366; 96367; 96368; 97110; 97116; 97161; 97165; 97530; 99285-25; A9270; J0610; J0696; J2543; J3475; J3480; J7030; J7040; J7050; J7060; J7120; P9047; P9612

== ENCOUNTER 2023-02-06 12:00 | Inpatient (IN) | payer OTHER ==
[~2023-02-06] VITALS: Ht 160 cm; Wt 74.4 kg
[~2023-02-06 12:00] MED LIST changes: +ALLO100 PO; +ATOR40TA PO; +Acerola C500 MG PO; +FERROUS SULFAT325 M3 PO; +MERIBIN5 MG PO; +OMEP20ER PO; +VANCOCIN HCL250 MG PO
[2023-02-06 12:47] LABS: BASOPHILS ABSOLUTE AUTO 0.08 K/mm3 (0.00-0.23); BASOPHILS PERCENT AUTO 0 % (0-2); EOSINOPHILS ABSOLUTE AUTO 0.05 K/mm3 (0.00-0.68); EOSINOPHILS PERCENT AUTO 0 % (0-6); Hematocrit 37.2 % (33.0-51.0); Hemoglobin 12.4 g/dL (11.5-16.0); IMMATURE GRAN ABSOLUTE AUTO 0.13 K/mm3 (0.00-0.10); IMMATURE GRAN PERCENT AUTO 1 % (0-1); LYMPHOCYTES ABSOLUTE AUTO 1.03 K/mm3 (0.84-5.20); LYMPHOCYTES PERCENT AUTO 5 % (21-46); MONOCYTES ABSOLUTE AUTO 2.04 K/mm3 (0.16-1.47); MONOCYTES PERCENT AUTO 9 % (4-13); Mean Corpuscular HGB 33.2 pg (26.0-34.0); Mean Corpuscular HGB Conc 33.3 g/dL (31.5-36.5); Mean Corpuscular Volume 100 fL (80-100); Mean Platelet Volume 10.5 fL (9.1-12.4); NEUTROPHILS ABSOLUTE AUTO 18.26 K/mm3 (1.96-9.15); NEUTROPHILS PERCENT AUTO 85 % (41-73); Platelet Count 193 K/mm3 (150-400); RDW Coefficient Variation 14.9 % (11.7-14.2); RDW Standard Deviation 55.1 fL (35.1-46.3); Red Blood Cell Count 3.73 M/mm3 (3.80-5.20); White Blood Cell Count 21.59 K/mm3 (4.00-11.30)
[2023-02-06 13:48] LABS: Albumin, Blood 2.2 g/dL (3.4-5.0); Albumin/Globulin Ratio 0.5 (0.8-1.8); Bilirubin, Total 0.8 mg/dL (0.1-1.0); Bun/Creatinine Ratio 20.3 (12.0-20.0); Calcium, Blood 8.3 mg/dL (8.5-10.1); Creatinine, Blood 1.33 mg/dL (0.40-1.00); Globulin, Blood 4.2 g/dL (2.2-4.0); Potassium, Blood 4.5 mmol/L (3.5-5.5); Total Protein, Blood 6.4 g/dL (6.4-8.2)
[2023-02-06 19:23] LABS: Adenovirus F 40/41 Not Detected (NOT DETECT); Astrovirus Not Detected (NOT DETECT); Campylobacter Sp Not Detected (NOT DETECT); Cryptosporidium Not Detected (NOT DETECT); Cyclospora Cayetanensis Not Detected (NOT DETECT); E. Coli O157 Not Detected (NOT DETECT); Entamoeba Histolytica Not Detected (NOT DETECT); Enteroaggregative E. coli-EAEC Not Detected (NOT DETECT); Enteropathogenic E. coli-EPEC Not Detected (NOT DETECT); Enterotoxigenic E. coli-ETEC Not Detected (NOT DETECT); Giardia Lamblia Not Detected (NOT DETECT); Norovirus GI/GII Not Detected (NOT DETECT); Plesiomonas Shigelloides Not Detected (NOT DETECT); Rotavirus A Not Detected (NOT DETECT); Salmonella Sp Not Detected (NOT DETECT); Sapovirus Not Detected (NOT DETECT); Shiga Toxin-prod E. coli-STEC Not Detected (NOT DETECT); Shigella/Enteroin E. coli-EIEC Not Detected (NOT DETECT); Vibrio Cholerae Not Detected (NOT DETECT); Vibrio Sp Not Detected (NOT DETECT); Yersinia Enterocolitica Not Detected (NOT DETECT)
--- NOTE | 2023-02-07 04:43 | NUR ---
PT ARRIVED ON UNIT AT SHIFT CHANGE. INTAKE INFORMATION GATHERING COMPLETED BY CHARGE. PT AOX4, REGULAR DIET, YET TO GET OUT OF BED ON THIS SHIFT. ADMITTED FOR C.DIFF. 10 BMS ON THIS SHIFT THUS FAR. PT TOOK 2100 MEDICATIONS WITHOUT DIFFICULTY. SKIN ASSESSMENT MOSTLY UNREMARKABLE. MILD REDNESS ON COCCYX, PT REPORTS SHE WAS ADMITTED HERE RECENTLY WITH UTI AND HAD A BIT OF SKIN BREAKDOWN A RESULT OF BEING IN BED FOR EXTENDED PERIODS OF TIME. BARRIER CREAMS APPLIED AT BRIEF CHANGES. PT IS PLEASANT AND COOPERATIVE WITH CARE ALTHOUGH SOMEWHAT EASILY AGITATED. PT DENIES ANY PAIN OUTSIDE OF MINOR PAIN ASSOCIATED WITH NECK BRACE WORN AFTER RECENT C7 SPINAL INJURY. CALL LIGHT LEFT WITHIN REACH.
[2023-02-07 05:51] LABS: BASOPHILS ABSOLUTE AUTO 0.08 K/mm3 (0.00-0.23); BASOPHILS PERCENT AUTO 0 % (0-2); EOSINOPHILS PERCENT AUTO 0 % (0-6); Hematocrit 35.2 % (33.0-51.0); Hemoglobin 11.6 g/dL (11.5-16.0); IMMATURE GRAN ABSOLUTE AUTO 0.13 K/mm3 (0.00-0.10); IMMATURE GRAN PERCENT AUTO 1 % (0-1); LYMPHOCYTES ABSOLUTE AUTO 0.88 K/mm3 (0.84-5.20); LYMPHOCYTES PERCENT AUTO 4 % (21-46); MONOCYTES ABSOLUTE AUTO 1.95 K/mm3 (0.16-1.47); MONOCYTES PERCENT AUTO 8 % (4-13); Mean Corpuscular HGB 33.2 pg (26.0-34.0); Mean Corpuscular Volume 101 fL (80-100); NEUTROPHILS ABSOLUTE AUTO 20.35 K/mm3 (1.96-9.15); NEUTROPHILS PERCENT AUTO 87 % (41-73); Platelet Count 194 K/mm3 (150-400); RDW Coefficient Variation 14.9 % (11.7-14.2); RDW Standard Deviation 55.8 fL (35.1-46.3); Red Blood Cell Count 3.49 M/mm3 (3.80-5.20); White Blood Cell Count 23.39 K/mm3 (4.00-11.30)
[2023-02-07 06:25] LABS: Albumin, Blood 1.9 g/dL (3.4-5.0); Albumin/Globulin Ratio 0.5 (0.8-1.8); Bilirubin, Total 0.6 mg/dL (0.1-1.0); Bun/Creatinine Ratio 22.2 (12.0-20.0); Calcium, Blood 7.5 mg/dL (8.5-10.1); Creatinine, Blood 1.08 mg/dL (0.40-1.00); Globulin, Blood 3.5 g/dL (2.2-4.0); Potassium, Blood 3.1 mmol/L (3.5-5.5); Total Protein, Blood 5.4 g/dL (6.4-8.2)
--- NOTE | 2023-02-07 17:53 | NUR ---
SHIFT SUMMARY NO ACUTE CHANGES DURING SHIFT. PT ALERT AND ORIENTED, CALLS APPROPRIATELY. PT REMAINS ON RA. PT WITH FREQUENT LOOSE BM'S STILL. PO ABX. NS INFUSING @ 100ML/HR. WILL CONTINUE TO MONITOR. CALL CODY WITHIN REACH.
[2023-02-08 05:33] LABS: BASOPHILS ABSOLUTE AUTO 0.09 K/mm3 (0.00-0.23); BASOPHILS PERCENT AUTO 1 % (0-2); EOSINOPHILS ABSOLUTE AUTO 0.25 K/mm3 (0.00-0.68); EOSINOPHILS PERCENT AUTO 1 % (0-6); Hematocrit 33.1 % (33.0-51.0); Hemoglobin 10.8 g/dL (11.5-16.0); IMMATURE GRAN ABSOLUTE AUTO 0.14 K/mm3 (0.00-0.10); IMMATURE GRAN PERCENT AUTO 1 % (0-1); LYMPHOCYTES PERCENT AUTO 8 % (21-46); MONOCYTES ABSOLUTE AUTO 2.04 K/mm3 (0.16-1.47); MONOCYTES PERCENT AUTO 11 % (4-13); Mean Corpuscular HGB 32.8 pg (26.0-34.0); Mean Corpuscular HGB Conc 32.6 g/dL (31.5-36.5); Mean Corpuscular Volume 101 fL (80-100); Mean Platelet Volume 10.8 fL (9.1-12.4); NEUTROPHILS ABSOLUTE AUTO 14.63 K/mm3 (1.96-9.15); NEUTROPHILS PERCENT AUTO 79 % (41-73); Platelet Count 199 K/mm3 (150-400); RDW Coefficient Variation 14.8 % (11.7-14.2); RDW Standard Deviation 55.3 fL (35.1-46.3); Red Blood Cell Count 3.29 M/mm3 (3.80-5.20); White Blood Cell Count 18.65 K/mm3 (4.00-11.30)
--- NOTE | 2023-02-08 05:54 | NUR ---
SHIFT SUMMARY PT A&O X 4- PT SITTING UP IN BED DURING BEDSIDE ROUNDS- DAUGHTER AT BEDSIDE- PT HAS C-SPINE COLLAR IN PLACE, IV INFUSING WITHOUT PROBLEMS, PT INCONTIENT OF URINE AND BM- BRIEFS CHANGED T/O NIGHT, CALMOSEPTIME CREAM APPLIED TO REDDENED BUTTOCKS AREA- ENTERIC PRECAUTIONS IN PLACE- BED LOW POSITION, CALL LIGHT WITHIN REACH, BED ALARM ACTIVATED
[2023-02-08 06:01] LABS: Albumin, Blood 1.7 g/dL (3.4-5.0); Albumin/Globulin Ratio 0.5 (0.8-1.8); Bilirubin, Total 0.3 mg/dL (0.1-1.0); Bun/Creatinine Ratio 15.5 (12.0-20.0); Calcium, Blood 7.2 mg/dL (8.5-10.1); Creatinine, Blood 1.1 mg/dL (0.40-1.00); Globulin, Blood 3.1 g/dL (2.2-4.0); Potassium, Blood 3.1 mmol/L (3.5-5.5); Total Protein, Blood 4.8 g/dL (6.4-8.2)
--- NOTE | 2023-02-08 17:10 | NUR ---
END OF SHIFT SUMMARY: PATIENT DENIED PAIN OR DISCOMFORT THROUGHOUT THE SHIFT. PATIENT REPORTED A DECREASE IN BOWEL MOVEMENTS DURING THE DAY AND THAT SHE WAS ABLE TO GET BETTER REST DURING THE NIGHT RELATED TO FEWER BOWEL MOVEMENTS. PATIENT DENIES NAUSEA OR ABDOMINAL CRAMPING. PATIENT HAS A VERY MINIMAL APPETITE. PATIENT'S STOOLS ARE BECOMING THICKER AND DARKER IN COLOR (NO LONGER GREEN LIQUID). PHYSICAL THERAPY WAS NOT ABLE TO SEE THE PATIENT TODAY. PATIENT ABLE TO HELP WITH MOVEMENT IN THE BED.
--- NOTE | 2023-02-09 04:48 | NUR ---
PATIENT SLEPT WELL THROUGH THE NIGHT, ALERT AND OREINTED X4, BED REST UNTIL PT EVAL. 1 LOOSE BM. IV INFUSING LR AT 100. SOME EDEMA TO BLE. C SPINE WORN THROUGH THE NIGHT. NO OTHER ISSUES TO REPORT.
[2023-02-09 04:50] LABS: BASOPHILS ABSOLUTE AUTO 0.05 K/mm3 (0.00-0.23); BASOPHILS PERCENT AUTO 1 % (0-2); EOSINOPHILS ABSOLUTE AUTO 0.31 K/mm3 (0.00-0.68); EOSINOPHILS PERCENT AUTO 3 % (0-6); Hematocrit 32.1 % (33.0-51.0); Hemoglobin 10.5 g/dL (11.5-16.0); IMMATURE GRAN PERCENT AUTO 1 % (0-1); LYMPHOCYTES ABSOLUTE AUTO 1.14 K/mm3 (0.84-5.20); LYMPHOCYTES PERCENT AUTO 11 % (21-46); MONOCYTES ABSOLUTE AUTO 1.31 K/mm3 (0.16-1.47); MONOCYTES PERCENT AUTO 12 % (4-13); Mean Corpuscular HGB 32.9 pg (26.0-34.0); Mean Corpuscular HGB Conc 32.7 g/dL (31.5-36.5); Mean Corpuscular Volume 101 fL (80-100); Mean Platelet Volume 10.2 fL (9.1-12.4); NEUTROPHILS ABSOLUTE AUTO 7.96 K/mm3 (1.96-9.15); NEUTROPHILS PERCENT AUTO 73 % (41-73); Platelet Count 185 K/mm3 (150-400); RDW Coefficient Variation 15.1 % (11.7-14.2); RDW Standard Deviation 56.7 fL (35.1-46.3); Red Blood Cell Count 3.19 M/mm3 (3.80-5.20); White Blood Cell Count 10.87 K/mm3 (4.00-11.30)
[2023-02-09 05:14] LABS: Bun/Creatinine Ratio 17.4 (12.0-20.0); Calcium, Blood 7.4 mg/dL (8.5-10.1); Creatinine, Blood 0.86 mg/dL (0.40-1.00); Potassium, Blood 3.8 mmol/L (3.5-5.5)
--- NOTE | 2023-02-09 18:04 | NUR ---
No acute changes to patient status. Patient having fewer loose stools, smaller stools noted this shift. Patient evaluated by PT today. Plan is possible discharge home tomorrow with homehealth. Will continue plan of care.
[2023-02-10 04:54] LABS: BASOPHILS ABSOLUTE AUTO 0.07 K/mm3 (0.00-0.23); BASOPHILS PERCENT AUTO 1 % (0-2); EOSINOPHILS ABSOLUTE AUTO 0.31 K/mm3 (0.00-0.68); EOSINOPHILS PERCENT AUTO 4 % (0-6); Hematocrit 33.2 % (33.0-51.0); Hemoglobin 10.9 g/dL (11.5-16.0); IMMATURE GRAN ABSOLUTE AUTO 0.09 K/mm3 (0.00-0.10); IMMATURE GRAN PERCENT AUTO 1 % (0-1); LYMPHOCYTES ABSOLUTE AUTO 1.36 K/mm3 (0.84-5.20); LYMPHOCYTES PERCENT AUTO 16 % (21-46); MONOCYTES ABSOLUTE AUTO 1.02 K/mm3 (0.16-1.47); MONOCYTES PERCENT AUTO 12 % (4-13); Mean Corpuscular HGB 33.4 pg (26.0-34.0); Mean Corpuscular HGB Conc 32.8 g/dL (31.5-36.5); Mean Corpuscular Volume 102 fL (80-100); Mean Platelet Volume 10.4 fL (9.1-12.4); NEUTROPHILS ABSOLUTE AUTO 5.81 K/mm3 (1.96-9.15); NEUTROPHILS PERCENT AUTO 67 % (41-73); Platelet Count 207 K/mm3 (150-400); RDW Standard Deviation 56.5 fL (35.1-46.3); Red Blood Cell Count 3.26 M/mm3 (3.80-5.20); White Blood Cell Count 8.66 K/mm3 (4.00-11.30)
--- NOTE | 2023-02-10 05:16 | NUR ---
SHIFT NOTE PATIENT RESTED WELL FOR MOST OF THE NIGHT, ORIENTED X4, CALLS TO MAKE NEEDS KNOWN. INC OF BB, 2X LOOSE STOOLS, ZARA AREA RED AND CREAM APPLIED. WE DID NOT AMBULATE OR DANGLE THIS SHIFT. PATIENT IS SL AND ON RA. NO PAIN REPORTED. HYPOTENSIVE BUT OTHERWISE VS. WILL CONT TO MONITOR.
[2023-02-10 05:26] LABS: Bun/Creatinine Ratio 14.9 (12.0-20.0); Creatinine, Blood 0.87 mg/dL (0.40-1.00); Potassium, Blood 3.9 mmol/L (3.5-5.5)
--- NOTE | 2023-02-10 13:53 | NUR ---
Patient doing well this shift, denies pain/discomfort. Today patient has had 1 medium and approx. another small mucousy stool. Patient reports when she feels the sensation of passing stool. But when staff check her brief there is only a small smear of BM noted. No liquid stools observed, only semi-formed mucousy stools.
[2023-02-10] MEDS ORDERED: POTCHL20ER PO (16:05)
[2023-02-10] MEDS ORDERED: VANCOCIN HCL250 MG PO (16:08)
--- NOTE | 2023-02-10 18:05 | NUR ---
Patient ready to go home, discussed with MD. Discharge orders placed. Explain Vancomycin titration to pt and daughter. Pt left unit at 1745.
== END 2023-02-10 18:36 | disposition home health service (06) | DRG 372 ==
LOC: ER 12:00 → MEDS 12:01
PROVIDERS: Emergency Medicine; Family Medicine; Physician Assistant; Student in an Organized Health Care Education/Training Program; ADMIT Student in an Organized Health Care Education/Training Program
DX: A04.71 Enterocolitis due to Clostridium difficile, recurrent (principal); E87.1 Hypo-osmolality and hyponatremia; S12.600A Unspecified displaced fracture of seventh cervical vertebra, initial encounter for closed fracture; I13.0 Hypertensive heart and chronic kidney disease with heart failure and stage 1 through stage 4 chronic kidney disease, or unspecified chronic kidney disease; I50.32 Chronic diastolic (congestive) heart failure; N17.9 Acute kidney failure, unspecified; Z79.01 Long term (current) use of anticoagulants; N18.30 Chronic kidney disease, stage 3 unspecified; Z86.718 Personal history of other venous thrombosis and embolism; Z99.81 Dependence on supplemental oxygen; I48.91 Unspecified atrial fibrillation; E03.9 Hypothyroidism, unspecified; G89.29 Other chronic pain; M54.9 Dorsalgia, unspecified; F17.200 Nicotine dependence, unspecified, uncomplicated; Z66 Do not resuscitate; I95.9 Hypotension, unspecified; M1A.9XX0 Chronic gout, unspecified, without tophus (tophi); J43.9 Emphysema, unspecified; G25.0 Essential tremor; E78.5 Hyperlipidemia, unspecified; K21.9 Gastro-esophageal reflux disease without esophagitis; E87.6 Hypokalemia; R32 Unspecified urinary incontinence; W19.XXXA Unspecified fall, initial encounter
CPT/HCPCS: 36415; 74177; 80048; 80053; 85025; 87324; 87507; 94640; 94664; 94760; 96361; 96374-59; 96375; 97161; 97530; 99285-25; A9270; G0378; J1200; J2930; J3480; J7030; J7040; J7050; J7120; Q9967

== ENCOUNTER → 2023-05-09 | Outpatient (CLI) | payer OTHER ==
[~2023-05-09] MED LIST changes: +DIFICID200 MG PO; +FAMO20 PO; -MERIBIN5 MG PO; +MYSOLINE250 M1 PO; +STIOLTO RESPIMAT4 G1 IH; +VANCOCIN HCL125 MG PO
[2023-05-09 20:06] LABS: Bun/Creatinine Ratio 20.6 (12.0-20.0); Calcium, Blood 9.3 mg/dL (8.5-10.1); Creatinine, Blood 1.31 mg/dL (0.40-1.00); Potassium, Blood 4.7 mmol/L (3.5-5.5)
== END | disposition home or self-care (01) ==
LOC: LAB 17:20 → LAB SHORT 17:20
PROVIDERS: Student in an Organized Health Care Education/Training Program
DX: R60.9 Edema, unspecified (principal)
CPT/HCPCS: 80048; 83880

== ENCOUNTER → 2023-06-22 | Outpatient (CLI) | payer OTHER ==
[~2023-06-22] MED LIST changes: +AMIODARONE HCL100 M3 PO; +DICLOFENAC SOD100 G1 TOP; -STIOLTO RESPIMAT4 G1 IH; +STIOLTO RESPIMAT4 G1 INH; +VITAMIN D325 MC3 PO
[2023-06-22 17:58] LABS: Campylobacter Sp Not Detected (NOT DETECT)
[2023-06-22 17:59] LABS: Adenovirus F 40/41 Not Detected (NOT DETECT); Astrovirus Not Detected (NOT DETECT); Cryptosporidium Not Detected (NOT DETECT); Cyclospora Cayetanensis Not Detected (NOT DETECT); E. Coli O157 Not Detected (NOT DETECT); Entamoeba Histolytica Not Detected (NOT DETECT); Enteroaggregative E. coli-EAEC Not Detected (NOT DETECT); Enteropathogenic E. coli-EPEC Not Detected (NOT DETECT); Enterotoxigenic E. coli-ETEC Not Detected (NOT DETECT); Giardia Lamblia Not Detected (NOT DETECT); Norovirus GI/GII Not Detected (NOT DETECT); Plesiomonas Shigelloides Not Detected (NOT DETECT); Rotavirus A Not Detected (NOT DETECT); Salmonella Sp Not Detected (NOT DETECT); Sapovirus Not Detected (NOT DETECT); Shiga Toxin-prod E. coli-STEC Not Detected (NOT DETECT); Shigella/Enteroin E. coli-EIEC Not Detected (NOT DETECT); Vibrio Cholerae Not Detected (NOT DETECT); Vibrio Sp Not Detected (NOT DETECT); Yersinia Enterocolitica Not Detected (NOT DETECT)
== END | disposition home or self-care (01) ==
LOC: LAB 13:46 → LAB SHORT 13:46
PROVIDERS: Student in an Organized Health Care Education/Training Program
DX: R19.7 Diarrhea, unspecified (principal)
CPT/HCPCS: 87324; 87507

== ENCOUNTER → 2023-06-22 | Outpatient (CLI) | payer OTHER ==
[~2023-06-22] MED LIST changes: -AMIODARONE HCL100 M3 PO; -DICLOFENAC SOD100 G1 TOP; +STIOLTO RESPIMAT4 G1 IH; -STIOLTO RESPIMAT4 G1 INH; -VITAMIN D325 MC3 PO
[2023-06-22 15:43] LABS: BASOPHILS ABSOLUTE AUTO 0.05 K/mm3 (0.00-0.23); BASOPHILS PERCENT AUTO 0 % (0-2); EOSINOPHILS ABSOLUTE AUTO 0.16 K/mm3 (0.00-0.68); EOSINOPHILS PERCENT AUTO 1 % (0-6); Hemoglobin 13.9 g/dL (11.5-16.0); IMMATURE GRAN ABSOLUTE AUTO 0.03 K/mm3 (0.00-0.10); IMMATURE GRAN PERCENT AUTO 0 % (0-1); LYMPHOCYTES ABSOLUTE AUTO 1.22 K/mm3 (0.84-5.20); LYMPHOCYTES PERCENT AUTO 10 % (21-46); MONOCYTES ABSOLUTE AUTO 0.96 K/mm3 (0.16-1.47); MONOCYTES PERCENT AUTO 8 % (4-13); Mean Corpuscular HGB 33.4 pg (26.0-34.0); Mean Corpuscular HGB Conc 33.1 g/dL (31.5-36.5); Mean Corpuscular Volume 101 fL (80-100); Mean Platelet Volume 10.7 fL (9.1-12.4); NEUTROPHILS ABSOLUTE AUTO 9.95 K/mm3 (1.96-9.15); NEUTROPHILS PERCENT AUTO 80 % (41-73); Platelet Count 229 K/mm3 (150-400); RDW Coefficient Variation 15.3 % (11.7-14.2); RDW Standard Deviation 57.4 fL (35.1-46.3); Red Blood Cell Count 4.16 M/mm3 (3.80-5.20); White Blood Cell Count 12.37 K/mm3 (4.00-11.30)
== END ==
LOC: LAB 13:58 → LAB SHORT 13:58
PROVIDERS: Student in an Organized Health Care Education/Training Program
DX: R19.7 Diarrhea, unspecified (principal)
CPT/HCPCS: 85025

== ENCOUNTER 2023-07-09 00:14 | Inpatient (IN) | payer OTHER ==
[2023-07-09] VITALS (78 sets, daily range): BP systolic 63–150; BP diastolic 45–100
[~2023-07-09] VITALS: Ht 160 cm; Wt 73.7 kg
[~2023-07-09 00:14] MED LIST changes: -STIOLTO RESPIMAT4 G1 IH; +STIOLTO RESPIMAT4 G1 INH
[2023-07-09 00:40] LABS: BASOPHILS ABSOLUTE AUTO 0.08 K/mm3 (0.00-0.23); BASOPHILS PERCENT AUTO 1 % (0-2); EOSINOPHILS ABSOLUTE AUTO 0.39 K/mm3 (0.00-0.68); EOSINOPHILS PERCENT AUTO 4 % (0-6); Hematocrit 36.5 % (33.0-51.0); Hemoglobin 12.1 g/dL (11.5-16.0); IMMATURE GRAN ABSOLUTE AUTO 0.04 K/mm3 (0.00-0.10); IMMATURE GRAN PERCENT AUTO 0 % (0-1); LYMPHOCYTES ABSOLUTE AUTO 2.15 K/mm3 (0.84-5.20); LYMPHOCYTES PERCENT AUTO 21 % (21-46); MONOCYTES PERCENT AUTO 9 % (4-13); Mean Corpuscular HGB 33.7 pg (26.0-34.0); Mean Corpuscular HGB Conc 33.2 g/dL (31.5-36.5); Mean Corpuscular Volume 102 fL (80-100); Mean Platelet Volume 10.7 fL (9.1-12.4); NEUTROPHILS ABSOLUTE AUTO 6.86 K/mm3 (1.96-9.15); NEUTROPHILS PERCENT AUTO 66 % (41-73); Platelet Count 203 K/mm3 (150-400); RDW Coefficient Variation 14.9 % (11.7-14.2); Red Blood Cell Count 3.59 M/mm3 (3.80-5.20); White Blood Cell Count 10.42 K/mm3 (4.00-11.30)
[2023-07-09 00:51] LABS: PCO2 Arterial 58.6 mmHg (35-45); PO2 Arterial 55.9 mmHg (80-100)
[2023-07-09 00:58] LABS: Albumin, Blood 2.7 g/dL (3.4-5.0); Albumin/Globulin Ratio 0.8 (0.8-1.8); Bilirubin, Total 0.2 mg/dL (0.1-1.0); Bun/Creatinine Ratio 19.8 (12.0-20.0); Calcium, Blood 8.4 mg/dL (8.5-10.1); Creatinine, Blood 1.87 mg/dL (0.40-1.00); Globulin, Blood 3.5 g/dL (2.2-4.0); Potassium, Blood 3.7 mmol/L (3.5-5.5); Total Protein, Blood 6.2 g/dL (6.4-8.2)
[2023-07-09 01:52] LABS: Influenza A, PCR NEGATIVE (NEGATIVE); Influenza B, PCR NEGATIVE (NEGATIVE); Resp Syncytial Virus, PCR NEGATIVE (NEGATIVE); SARS-Cov-2 (COVID-19) PCR, MMC NEGATIVE (NEGATIVE)
[2023-07-09 03:21] LABS: International Normalized Ratio 1.16; Prothrombin Time Results 12.1 Sec (9.7-11.5)
[2023-07-09 03:32] LABS: Base Excess Venous 8.1 mmol/L; Bicarbonate Venous 29.7 mmol/L (24.0-30.0); PCO2 Venous 63.2 mmHg (38-42); pH Blood Venous 7.34 (7.34-7.37)
[2023-07-09 04:23] LABS: Source, Urine Clean Catch
[2023-07-09 04:30] LABS: Bilirubin, Urine Neg (Neg); Blood, Urine 3+ (Neg); Glucose Qualitative, Urine Neg (Neg); Ketones, Urine Neg (Neg); Leukocyte Esterase, Urine 3+ (Neg); Nitrite, Urine Pos (Neg); Protein, Urine 2+ (Neg); Specific Gravity, Urine 1.015 (1.003-1.022); Urobilinogen, Urine NORM (Normal)
[2023-07-09 04:35] LABS: Appearance, Urine Cloudy (Clear); Color, Urine Yellow (P-Yellow)
[2023-07-09 04:50] LABS: Bacteria Many /hpf; Red Blood Cells, Urine 0-2 /hpf (0-2); Squamous Epithelial Cells Few /hpf (Few); White Blood Cells, Urine TNTC /hpf (0-5)
[2023-07-09 06:44] LABS: Source, Urine Foley catheter
--- NOTE | 2023-07-09 06:47 | NUR ---
SHIFT SUMMARY PATIENT TO ICU 7 FROM ER AT 0425 PATIENT IS INTUBATED AND SEDATED ON PROPOFOL ANF FENTANYL DRIPS. PATIENT RESPONDS TO VERBAL, LOCALIZES TO PAIN, MOVES ALL EXTREMITIES. 02 SATS 99% ON VENT AC VC 16/400/10/100% RR 16, RIGHT LUNG COARSE AND CRACKLES THROUGHOUT, LARGE AMOUNTS OF GETACHEW RED BLOOD FROM ETT. OG TO LIS. HR SB-SR 50s-70s WITH PACs. BP HYPOTENSIVE, 500 MLS BOLUS OF NS GIVEN, BP REMAINED HYPOTENSIVE AND PATIENT STARTED ON LEVOPHED. HONG PATENT AND DRAINING CLOUDY WITH LARGE AMOUNT OF SEDIMENT. DAUGHTER WAS AT BEDSIDE AND PROVIDED SOME HISTORY, WILL BRING IN MEDICATIONS OR A LIST. SEE ASSESSMENT FOR MORE INFORMATION
[2023-07-09 07:24] LABS: Appearance, Urine Hazy (Clear); Bilirubin, Urine Neg (Neg); Blood, Urine 4+ (Neg); Color, Urine Yellow (P-Yellow); Glucose Qualitative, Urine Neg (Neg); Ketones, Urine Neg (Neg); Leukocyte Esterase, Urine 3+ (Neg); Nitrite, Urine Pos (Neg); Protein, Urine 2+ (Neg); Urobilinogen, Urine NORM (Normal); pH, Urine 6.5 (5.0-8.0)
[2023-07-09 07:40] LABS: Mucus Light (0-Heavy); Squamous Epithelial Cells Not Seen /hpf (Few)
[2023-07-09 07:41] LABS: Bacteria Few /hpf; Red Blood Cells, Urine TNTC /hpf (0-2); Transitional Epithelial Cells Few /hpf (0-Rare); White Blood Cells, Urine TNTC /hpf (0-5)
[2023-07-09 08:01] LABS: Hematocrit 32.7 % (33.0-51.0); Hemoglobin 10.8 g/dL (11.5-16.0); Mean Corpuscular HGB 33.6 pg (26.0-34.0); Mean Corpuscular Volume 102 fL (80-100); Mean Platelet Volume 10.7 fL (9.1-12.4); Platelet Count 195 K/mm3 (150-400); RDW Coefficient Variation 14.9 % (11.7-14.2); RDW Standard Deviation 55.8 fL (35.1-46.3); Red Blood Cell Count 3.21 M/mm3 (3.80-5.20); White Blood Cell Count 13.09 K/mm3 (4.00-11.30)
--- NOTE | 2023-07-09 08:01 | NUR ---
AM NOTE... ASSUMED CARE OF PT AT 0700. PT IS INTUBATED AND SEDATED PROPOFOL RUNNING AT 20MCG/KG AND FENTANYL DRIP RUNNING AT 30MCG/HR, PT WAKES EASILY WITH SLIGHT VERBAL STIMULATION. WHEN AWAKE SHE ATTEMPTS TO PULL AT THE ET TUBE AND THRASHES HER HEAD. VENT SETTINGS ARE AC/VC:16/400/10/100% WITH O2 SATS>95% AT THE TIME OF THIS ASSESSMENT THIS RN CHANGED THE FIO2 FROM 100% DOWN TO 90% WITH O2 SATS HOLDING >92%. L/S VERY COARSE WITH RHONCHI ON THE RIGHT SIDE, COARSE ON THE UPPER LEFT LOBE DIM IN THE LOWER LEFT LOBE. SHE IS IN SINUS JUSTUS IN THE 50'S, LEVOPHED DRIP IS RUNNING AT 3MCG/MIN TO KEEP MAPS>65. 3+ EDEMA NOTED TO HER BLE, DEPENDENT EDEMA NOTED TO HER BUE. BT PRESENT AND HYPOACTIVE, OG TUBE IS SET TO LIS WITH SCANT BILE NOTED IN THE TUBE. TEMP HONG IS PATENT AND DRAINING TO GRAVITY, CURRENT TEMP IS 97.8. WILL CONTINUE TO MONITOR.
[2023-07-09 08:14] LABS: Albumin, Blood 2.5 g/dL (3.4-5.0); Albumin/Globulin Ratio 0.8 (0.8-1.8); Bilirubin, Total 0.4 mg/dL (0.1-1.0); Bun/Creatinine Ratio 20.5 (12.0-20.0); Calcium, Blood 7.8 mg/dL (8.5-10.1); Creatinine, Blood 1.61 mg/dL (0.40-1.00); Globulin, Blood 3.3 g/dL (2.2-4.0); Potassium, Blood 4.1 mmol/L (3.5-5.5); Total Protein, Blood 5.8 g/dL (6.4-8.2)
[2023-07-09 08:57] LABS: BASOPHILS PERCENT MAN 0 % (0-2); EOSINOPHILS PERCENT MAN 0 % (0-6); LYMPHOCYTES ABSOLUTE MAN 0.13 K/mm3 (0.84-5.20); LYMPHOCYTES PERCENT MAN 1 % (21-46); MONOCYTES ABSOLUTE MAN 0.13 K/mm3 (0.16-1.47); MONOCYTES PERCENT MAN 1 % (4-13); NEUTROPHILS ABSOLUTE MAN 12.82 K/mm3 (1.96-9.15); SEG NEUTROPHILS PERCENT MAN 98 % (41-73); TOTAL CELLS COUNTED 100
[2023-07-09 09:51] LABS: Adenovirus Not Detected (NOT DETECT); Bordetella pertussis Not Detected (NOT DETECT); Chlamydophila pneumoniae Not Detected (NOT DETECT); Coronavirus 229E Not Detected (NOT DETECT); Coronavirus HKU1 Not Detected (NOT DETECT); Coronavirus NL63 Not Detected (NOT DETECT); Coronavirus OC43 Not Detected (NOT DETECT); Human Metapneumovirus Not Detected (NOT DETECT); Human Rhinovirus/Enterovirus Not Detected (NOT DETECT); Influenza A/2009-H1 Not Detected (NOT DETECT); Influenza A/H1 Not Detected (NOT DETECT); Influenza A/H3 Not Detected (NOT DETECT); Influenza B Not Detected (NOT DETECT); Mycoplasma pneumoniae Not Detected (NOT DETECT); Parainfluenza Virus 1 Not Detected (NOT DETECT); Parainfluenza Virus 2 Not Detected (NOT DETECT); Parainfluenza Virus 3 Not Detected (NOT DETECT); Parainfluenza Virus 4 Not Detected (NOT DETECT); Respiratory Syncytial Virus Not Detected (NOT DETECT); SARS-Cov-2 (COVID-19), BioFire Not Detected (NOT DETECT)
--- NOTE | 2023-07-09 15:04 | NUR ---
PT UPDATE.... AT 1224 THE PT WAS GIVEN 50MCG, 40MCG OF PROPOFOL AND 50MCG OF [place] FOR A BRONCH BY DR. MENDEZ. THE PT TOLERATED THE BRONCH WELL. SAMPLES WERE SENT TO THE LAB PER ORDERS. PT WAS THEN TURNED ONTO HER RIGHT SIDE PER ORDERS. THE PT'S VENT SETTINGS CONTINUES TO BE AC/VC: 16/400/10/60% WITH O2 SATS>95%. PROPOFOL DRIP IS RUNNING AT 40MCG, FENTANLY DRIP IS RUNNING AT 30MCG/HR AND LEVOPHED IS RUNNING AT 6MCG/MIN TO KEEP MAPS >65. PT'S CURRENTLY IN SINUS JUSTUS IN THE MID 40'S. PT'S DAUGHTERS ARE AT THE BEDSIDE. WILL CONTINUE TO MONITOR.
[2023-07-09] MEDS ORDERED: ATOR40TA PO (15:36)
[2023-07-09] MEDS ORDERED: FAMO20 PO (15:37)
[2023-07-09] MEDS ORDERED: EUTHYROX50 MCG PO (15:39)
[2023-07-09] MEDS ORDERED: AMIODARONE HCL100 M3 PO (15:40)
[2023-07-09] MEDS ORDERED: BUME2 PO (15:40)
[2023-07-09] MEDS ORDERED: VITAMIN D325 MC3 PO (15:41)
[2023-07-09] MEDS ORDERED: Primidone50 MG PO (15:42)
--- NOTE | 2023-07-09 17:31 | NUR ---
SHIFT SUMMARY... NO ACUTE NEGATIVE CHANGES ASSESSED SINCE PREVIOUS NOTES. THE PT'S PICC LINE WAS PULLED OUT 5CM PER RADIOLOGIST RECCOMENDATION BY ALPHONSO EASLEY RN. THE PT CONTINUES TO BE ON A LEVOPHED DRIP AT 6MCG/MIN TO KEEP MAPS>65. PROPOFOL IS RUNNING AT 40MCG AND FENTANYL DRIP IS RUNNING AT 30MCG/HR. PT'S VENT SETTINGS ARE NOW AC/VC: 16/400/10/45%. SPUTUM SUCTIONED FROM THE ET TUBE HAS DECREASED AND IS NOW A SMALL AMOUNT OF GETACHEW RED BLOOD INSEAD OF LARGE AMOUNT. PT HAS NOT HAD A BM THIS SHIFT. HONG IS PATENT AND DRAINING TO GRAVITY. PT'S FAMILY HAS BEEN AT THE BEDSIDE THIS AFTERNOON. A COPY OF HER ADVANCED DIRECTIVE/POLST WERE MADE AND PLACED IN THE CHART. PT CONTINUES TO BE BRADYCARIDIC WITH HR IN THE 40'S-50'S. WILL CONTINUE TO MONITOR UNTIL REPORT IS GIVEN TO ON COMING RN.
[2023-07-09 19:57] LABS: Acinetobacter baumannii DNA Not Detected copy/mL (NOT DETECT); Enterobacter cloacae DNA Not Detected copy/mL (NOT DETECT); Escherichia coli DNA Not Detected copy/mL (NOT DETECT); Haemophilus influenzae DNA Not Detected copy/mL (NOT DETECT); Klebsiella aerogenes DNA Not Detected copy/mL (NOT DETECT); Klebsiella oxytoca DNA Not Detected copy/mL (NOT DETECT); Klebsiella pneumoniae DNA Not Detected copy/mL (NOT DETECT); Moraxella catarrhalis DNA Not Detected copy/mL (NOT DETECT); Proteus sp DNA Not Detected copy/mL (NOT DETECT); Pseudomonas aeruginosa DNA Not Detected copy/mL (NOT DETECT); Serratia marcescens DNA Not Detected copy/mL (NOT DETECT); Staphylococcus aureus DNA Not Detected copy/mL (NOT DETECT); Streptococcus agalactiae DNA Not Detected copy/mL (NOT DETECT); Streptococcus pneumoniae DNA Not Detected copy/mL (NOT DETECT); Streptococcus pyogenes DNA Not Detected copy/mL (NOT DETECT)
[2023-07-09 19:58] LABS: Adenovirus DNA Not Detected (NOT DETECT); Chlamydia pneumonia Not Detected (NOT DETECT); Human Coronavirus RNA Not Detected (NOT DETECT); Human Metapneumovirus RNA Not Detected (NOT DETECT); Influenza virus A RNA Not Detected (NOT DETECT); Influenza virus B RNA Not Detected (NOT DETECT); Legionella pneumophila Not Detected (NOT DETECT); Mycoplasma pneumoniae Not Detected (NOT DETECT); Parainfluenza virus RNA Not Detected (NOT DETECT); Respiratory syncytial Vir RNA Not Detected (NOT DETECT); Rhinovirus+Enterovirus RNA Not Detected (NOT DETECT)
--- NOTE | 2023-07-09 20:50 | NUR ---
ASSUMED CARE AT 1900 PATIENT IS INTUBATED AND SEDATED ON PROPOFOL AND FENTANYL. OPENS EYES TO VERBAL STIMULI, LOCALIZES TO PAIN AND FOLLOW SOME SIMPLE COMMANDS AT TIMES. 02 SATS 95% ON VENT AC VC 16/400/10/40%, RR 16, MODERATE AMOUNT OF GETACHEW RED FROM ETT. OG TO LIS. HR SB 40s-50s. LEVOPHED INFUSING TO MAINTAIN MAP >65. HONG PATENT AND DRAINING CLOUDY YELLOW URINE WITH A LARGE AMOUNT OF SEDIMENT. PATIENT TURNED TO HER RIGHT SIDE PER DR. ORDERS, SHIFTING HIPS AND PILLOWS Q2 HOURS. ORAL CARE DONE. SEE SHIFT ASSESSMENT FOR MORE INFORMATION.
[2023-07-10] VITALS (73 sets, daily range): BP systolic 69–142; BP diastolic 41–74
[2023-07-10 04:14] LABS: BASOPHILS ABSOLUTE AUTO 0.06 K/mm3 (0.00-0.23); BASOPHILS PERCENT AUTO 1 % (0-2); EOSINOPHILS PERCENT AUTO 0 % (0-6); Hematocrit 31.9 % (33.0-51.0); Hemoglobin 10.6 g/dL (11.5-16.0); IMMATURE GRAN ABSOLUTE AUTO 0.05 K/mm3 (0.00-0.10); IMMATURE GRAN PERCENT AUTO 1 % (0-1); LYMPHOCYTES PERCENT AUTO 5 % (21-46); MONOCYTES ABSOLUTE AUTO 0.15 K/mm3 (0.16-1.47); MONOCYTES PERCENT AUTO 2 % (4-13); Mean Corpuscular HGB 33.3 pg (26.0-34.0); Mean Corpuscular HGB Conc 33.2 g/dL (31.5-36.5); Mean Corpuscular Volume 100 fL (80-100); Mean Platelet Volume 10.8 fL (9.1-12.4); NEUTROPHILS ABSOLUTE AUTO 9.55 K/mm3 (1.96-9.15); NEUTROPHILS PERCENT AUTO 93 % (41-73); Platelet Count 212 K/mm3 (150-400); RDW Coefficient Variation 14.9 % (11.7-14.2); RDW Standard Deviation 54.8 fL (35.1-46.3); Red Blood Cell Count 3.18 M/mm3 (3.80-5.20); White Blood Cell Count 10.31 K/mm3 (4.00-11.30)
[2023-07-10 04:16] LABS: Creatinine, Blood 1.27 mg/dL (0.40-1.00); Glomerular Filtration Rate 43 (60-); Vancomycin, Random 15.2 ug/mL
[2023-07-10 04:27] LABS: Albumin, Blood 2.5 g/dL (3.4-5.0); Albumin/Globulin Ratio 0.8 (0.8-1.8); Bilirubin, Total 0.4 mg/dL (0.1-1.0); Bun/Creatinine Ratio 19.8 (12.0-20.0); Calcium, Blood 8.1 mg/dL (8.5-10.1); Creatinine, Blood 1.26 mg/dL (0.40-1.00); Globulin, Blood 3.3 g/dL (2.2-4.0); Potassium, Blood 3.7 mmol/L (3.5-5.5); Total Protein, Blood 5.8 g/dL (6.4-8.2)
--- NOTE | 2023-07-10 05:55 | NUR ---
SHIFT SUMMARY PATIENT REMAINS INTUBATED AND SEDATED ON PROPOFOL AND FENTANYL. REPSONDS TO VERBAL STIMULI, BECOMES ANXIOUS AND DIFFICULT TO REDIRECT WITH TOO MUCH STIMULI. 02 SATS 94% ON VENT AC VC 16/400/10/40%, SUCTIONING MODERATE AMOUNT OF GETACHEW RED FROM ETT. PATIENT STAYED POSITIONED ON RIGHT SIDE THROUGH THE NIGHT, SHIFTED HIPS AND PILLOWS Q2 HOURS. HR SB 40s, BP WITH MAP >65 ON LEVOPHED. OG TO LIS. TEMP HONG PATENT AND DRAINING TO GRAVITY. BED BATH DONE THIS SHIFT.
--- NOTE | 2023-07-10 07:50 | NUR ---
ASSUMED CARE: REPORT RECEIVED FROM RODERICK Garcia RN. ASSUMED CARE OF THIS PT AT APPROX 0700. ON ASSESSMENT, THE PT IS SEDATED W/ PROPOFOL & FENTANYL, VENTILATED. SHE IS RESTING QUIETLY, AWAKENS BRIEFLY TO VERBAL & TACTILE STIMULUS. LS COARSE W/ CRACKLES T/O, VENT SETTINGS: AC/VC 16/400/10/40% W/ O2 SATS > 95%. MOD AMNTS THIN GETACHEW RED SPUTUM SUCTIONED THROUGH ETT. MONITOR SHOWS SB W/ HR 40-50s, LEVOPHED INFUSING AT 4 MCG/MIN W/ MAP > 65. OGT IN PLACE TO LIS, SCANT AMNT BILIOUS DRAINAGE NOTED IN CANISTER. TEMP HONG PATENT/ DRAINING YELLOW URINE W/ MOD AMNTS SEDIMENT, IN PLACE FOR CRITICAL I&O MONITORING. SKIN CONDITION OVERALL INTACT, FRAGILE. DISCOLORATION NOTED TO COCCYX, NOT BLANCHABLE. Q2H REPOSITIONING TO MAINTAIN SKIN INTEGRITY, SOMEWHAT LIMITED R/T OXYGENATION REQUIREMENTS - NO REPOSITIONING TO LEFT SIDE. WILL CONTINUE TO MONITOR & UPDATE NEEDED.
--- NOTE | 2023-07-10 09:45 | NUR ---
DR TURNER: PROVIDER AT BEDSIDE TO EVAL PT THIS AM. PT's DAUGHTER AT BEDSIDE DURING THIS TIME & HAS BEEN PROVIDED W/ AN UPDATE. NEW LABS HAVE BEEN ORDERED & PT's HOME MEDS OF LEVOTHYROXINE & PRIMIDONE ALSO ORDERED TO START TODAY. AIRCRAFT REFUELER CONSULTED TO BEGIN ENTERAL FEEDINGS.
[2023-07-10 10:48] LABS: PCO2 Arterial 41.3 mmHg (35-45); pH Blood Arterial 7.47 (7.35-7.45)
[2023-07-10 11:25] LABS: Magnesium, Blood 2.3 mg/dL (1.6-2.4)
[2023-07-10 11:33] LABS: Phosphorus, Blood 2.7 mg/dL (2.5-4.9)
--- NOTE | 2023-07-10 17:38 | NUR ---
Met with pt's daughters Ron and Alexia at pt's bedside. They are tearful, but in agreement they would like to honor their mother's wishes of no intubation, DNR. They have requested to place pt on comfort care, as she was able to shake her head "no" when sedation vacation performed today and daughters asked her if she wants to continue with intubation. The daughters report pt has been telling them for some time that she is "ready to go", and has not felt she has a quality of life as well, for some time. Dr. Rangel then met with the daughters to confirm, and they again state they want to honor the pt's wishes with comfort only. Medications ordered, pt will be extubated shortly by RT. BAKERY MACHINE MECHANIC Audrey at bedside, prepared to discontinue propofol, ect. Palliative care will remain available.
--- NOTE | 2023-07-10 18:51 | NUR ---
SHIFT SUMMARY / COMFORT MEASURES: THIS AFTERNOON, WHILE FAMILY AT BEDSIDE, THEY HAVE DISCHSSED DESIRE TO DISCONTINUE CURRENT CARE MEASURES & PURSUE COMFORT MEASURES INSTEAD. THIS RN HAS NOTIFIED TYRONE Grullon, PALLIATIVE RN, WHO HAS COME TO BEDSIDE TO SPEAK W/ PT's DAUGHTERS, PATY & NARESH. DR TURNER HAS ALSO BEEN NOTIFIED & SPOKEN W/ THE PT's FAMILY. ORDERS PLACED FOR COMFORT MEASURES. THE PT HAS BEEN PREMEDICATED & EXTUBATED AT APPROX 1800. BILAT SOFT WRIST RESTRAINTS HAVE BEEN REMOVED AT THAT TIME. THE PT APPEARS COMFORTABLE & IN NO ACUTE DISTRESS. THE FAMILY HAS RETURNED TO BEDSIDE. COMFORT CART ORDERED. THE FAMILY VERBALIZES NO NEEDS AT THIS TIME. WILL CONTINUE TO MONITOR & REPORT OFF TO ONCOMING RN.
[2023-07-10] MEDS ORDERED: DICLOFENAC SOD100 G1 TOP (21:44)
--- NOTE | 2023-07-11 04:29 | NUR ---
SHIFT SUMMARY COMFORT CARE TRANSFER FROM ICU. PATIENT ON FENTANYL DRIP. DRIP DISCONTINUED, NEW ORDER FOR CONFIGURATION MANAGEMENT MANAGER OBTAINED. PICC TO ILDEFONSO. RESPONDS TO PHYSICAL STIMULI. DOES NOT OPEN EYES. RESPIRATIONS EVEN AND UNLABOURED. PRN ATIVAN X1. FAMILY AT BEDSIDE.
[2023-07-11 09:12] LABS: COMPLEMENT C3, SERUM 113 mg/dL (82-167); COMPLEMENT C4, SERUM 35 mg/dL (12-38)
--- NOTE | 2023-07-11 09:56 | NUR ---
Spiritual Care Visit. Pt. is comfort care and mostly non responsive. Daughters are present. Facilitate a life review. Family verbalizes that they have spiritual care support from the [employer] coming in. Listen with empathy, care and support. Daughter verbalizes gratitude for the spiritual care visit. Will remain available to Pt. and family.
--- NOTE | 2023-07-11 11:48 | NUR ---
Received call from Pt's Primary RN Mulu reporting Pt actively dying and family may benefit from PC visit. Arrived to Pt's room. Pt's respirations abscent. Primary RN and RN Clinical Coordinator auscultates apical pulse which is absent. Offered condolences to family and answered questions. Family appears to be grieving appropriately and report no concerns at this time. Family elects [facility]. Palliative Care will remain available
--- NOTE | 2023-07-11 14:59 | NUR ---
PT AT 1045. FAMILY AND PALLATIVE CARE PRESENT. NOTIFIED. [facility] TO PRODUCTION UNDERWRITER.
[2023-07-14 09:13] LABS: ANTIMYELOPEROXIDASE (MPO) ABS <0.2 units (0.0-0.9); ANTIPROTEINASE 3 (PR-3) ABS <0.2 units (0.0-0.9); ATYPICAL PANCA <1:20 titer (Neg:<1:20); CYTOPLASMIC (C-ANCA) <1:20 titer (Neg:<1:20); PERINUCLEAR (P-ANCA) <1:20 titer (Neg:<1:20)
== END 2023-07-11 10:45 | DRG 871 ==
LOC: ER 00:14 → ICUE 00:15 → MEDS 04:48 → ICUE 04:48 → MEDS 07-10 21:35 → ENPENDDIS 07-11 13:50
PROVIDERS: Emergency Medicine; Internal Medicine Critical Care Medicine; Student in an Organized Health Care Education/Training Program; ADMIT Internal Medicine
PROC: 4A133R1 Monitoring of Arterial Saturation, Peripheral, Percutaneous Approach (ICD-10-PCS; principal; 2023-07-09)
PROC: 3E03329 Introduction of Other Anti-infective into Peripheral Vein, Percutaneous Approach (ICD-10-PCS; 2023-07-09)
PROC: 0DH67UZ Insertion of Feeding Device into Stomach, Via Natural or Artificial Opening (ICD-10-PCS; 2023-07-09)
PROC: 02H633Z Insertion of Infusion Device into Right Atrium, Percutaneous Approach (ICD-10-PCS; 2023-07-09)
PROC: 5A1945Z Respiratory Ventilation, 24-96 Consecutive Hours (ICD-10-PCS; 2023-07-09)
PROC: 3E033XZ Introduction of Vasopressor into Peripheral Vein, Percutaneous Approach (ICD-10-PCS; 2023-07-09)
PROC: 0B9F8ZX Drainage of Right Lower Lung Lobe, Via Natural or Artificial Opening Endoscopic, Diagnostic (ICD-10-PCS; 2023-07-09)
PROC: 0BH18EZ Insertion of Endotracheal Airway into Trachea, Via Natural or Artificial Opening Endoscopic (ICD-10-PCS; 2023-07-09)
PROC: 0B9C8ZX Drainage of Right Upper Lung Lobe, Via Natural or Artificial Opening Endoscopic, Diagnostic (ICD-10-PCS; 2023-07-09)
PROC: 0B9D8ZX Drainage of Right Middle Lung Lobe, Via Natural or Artificial Opening Endoscopic, Diagnostic (ICD-10-PCS; 2023-07-09)
PROC: 0T9B70Z Drainage of Bladder with Drainage Device, Via Natural or Artificial Opening (ICD-10-PCS; 2023-07-09)
DX: A41.9 Sepsis, unspecified organism (principal); J96.21 Acute and chronic respiratory failure with hypoxia; J96.22 Acute and chronic respiratory failure with hypercapnia; I50.32 Chronic diastolic (congestive) heart failure; I13.0 Hypertensive heart and chronic kidney disease with heart failure and stage 1 through stage 4 chronic kidney disease, or unspecified chronic kidney disease; A04.71 Enterocolitis due to Clostridium difficile, recurrent; R04.2 Hemoptysis; R65.20 Severe sepsis without septic shock; Z66 Do not resuscitate; Z51.5 Encounter for palliative care; I27.20 Pulmonary hypertension, unspecified; J43.9 Emphysema, unspecified; E03.9 Hypothyroidism, unspecified; I95.9 Hypotension, unspecified; I48.91 Unspecified atrial fibrillation; M10.9 Gout, unspecified; E78.00 Pure hypercholesterolemia, unspecified; N18.32 Chronic kidney disease, stage 3b; D63.1 Anemia in chronic kidney disease; Z20.822 Contact with and (suspected) exposure to COVID-19; G25.0 Essential tremor; M54.9 Dorsalgia, unspecified; F17.210 Nicotine dependence, cigarettes, uncomplicated; G89.29 Other chronic pain; K21.9 Gastro-esophageal reflux disease without esophagitis; Z90.710 Acquired absence of both cervix and uterus; Z90.722 Acquired absence of ovaries, bilateral; Z90.49 Acquired absence of other specified parts of digestive tract; Z98.890 Other specified postprocedural states; Z96.642 Presence of left artificial hip joint; Z98.49 Cataract extraction status, unspecified eye; Z99.81 Dependence on supplemental oxygen; Z79.01 Long term (current) use of anticoagulants; Z79.899 Other long term (current) drug therapy; Z88.5 Allergy status to narcotic agent; Z91.041 Radiographic dye allergy status; Z86.718 Personal history of other venous thrombosis and embolism; Z79.2 Long term (current) use of antibiotics; B96.20 Unspecified Escherichia coli [E. coli] as the cause of diseases classified elsewhere; Z78.1 Physical restraint status
CPT/HCPCS: 0202U; 0241U; 31500; 36415; 36569; 36600; 51702; 71045; 71275; 80053; 80202; 81001; 82565; 82803; 82947; 83516; 83520; 83605; 83735; 83880; 84100; 84145; 84484; 85025; 85610; 85651; 85730; 86037; 86038; 86141; 86160; 86225; 86850; 86900; 86901; 87040; 87070; 87075; 87077; 87086; 87186; 87205; 87633; 88108; 88312; 93005; 93010; 93306; 94002; 94003; 94640; 94664; 94760; 94762; 96361; 96365; 96375; 96376; 99285-25; A9270; C1751; C9113; G0378; J0330; J1170; J1200; J2060; J2250; J2543; J2704; J2930; J3010; J3370; J7030; J7050; J7060; J7120; Q9967